=== PATIENT | female | born 1995 | race Caucasian/White ===

== ENCOUNTER 2017-08-22 13:30 | Emergency (ER) | payer OTHER, SELFPAY ==
[2017-08-22 13:30] VITALS: BP 129/69; PULSE 106; RESP 14; TEMP 36.5; O2SAT 100; BMI 19.9
--- NOTE | 2017-08-22 14:22 | ED.DCSUM_ITS ---
- ER Visit Summary Date of Service: 08/22/17 Chief Complaint: Dental pain History of Present Illness: The patient is a 22 F who has an appointment to see Dr. Marrero September 02. She reports that she has had pain in her left maxillary second molar that has been present for years as her wisdom tooth is coming in. However, pain is gotten much worse over the past 2 days. She describes as a sharp pressure. Is 10 out of 10 at worst 910 currently. Is worsened by eating, hot, or cold temperatures. She taken NSAIDs, Tylenol, Orajel without relief. Physical Examination: Vitals: Stable. Afebrile. Mouth: No trismus. No edema of the floor of the mouth. Pain with percussion of left maxillary second molar. There is a crown showing in the base of this. There is no focal abscess. General: A&O x 3. NAD. Cardiovascular exam: Regular rate and rhythm, no murmur, rub or gallop. Respiratory exam: Clear to auscultation bilaterally. No wheezes or stridor. Abdominal exam: Soft, nontender, nondistended, normal bowel sounds. No peritoneal signs. Extremity: No clubbing, cyanosis, or edema. Emergency Department Course and Treatment: Patient had a dental block performed and got significant relief from this. She is given naproxen and amoxicillin p.o. Treatment Plan: She will be discharged instructions follow-up Dr. Marrero as soon as possible. She given a prescription for [place], naproxen, and amoxicillin. Disposition: To home in improved and stable condition. Impression: 1. Dental pain. 2. Dental block. This note was generated with [employer] dictation software. It may contain incorrect words, spelling, and punctuation that were not noted in review of the chart prior to signing ED Disposition - Plan for ED Patient: Disposition: Home or Assisted Living Chief Complaint: Dental Instructions: ED Tooth Pain Prescriptions: Hydrocodone Bitart/Apap 5-325 [[place] 5/325] 1 - 2 tablet PO Q4H PRN PRN 3 Days # 20 tablet PRN Reason: Pain Naproxen [Naprosyn] 500 mg PO BID PRN #20 tablet Amoxicillin 500 mg PO TID #30 tablet Referrals: Carloz Marrero DDS [STAFF PHYSICIAN] - As soon as possible
[2017-08-22] MEDS: Bupivacaine 0.5%/Epi 1.8 ML Syringe INFILT (14:33)
[2017-08-22] MEDS: Naproxen 250 MG Tablet 500 MG PO (14:33)
[2017-08-22] MEDS: AMOXICILLIN 500 MG CAPSULE PO (14:33)
== END 2017-08-22 14:39 | disposition home or self-care (01) ==
PROVIDERS: Emergency Provider Emergency Medicine; Family Provider Internal Medicine; PCP Internal Medicine
DX: K08.89 Other specified disorders of teeth and supporting structures (principal); K52.9 Noninfective gastroenteritis and colitis, unspecified; R51 Headache; K86.1 Other chronic pancreatitis; Z72.0 Tobacco use
CPT/HCPCS: 64450; 99283

== ENCOUNTER 2018-01-29 19:11 | Emergency (ER) | payer OTHER, SELFPAY ==
[2018-01-29 19:11] VITALS: BP 120/87; PULSE 98; RESP 16; TEMP 37.4; O2SAT 98; BMI 19.3
--- NOTE | 2018-01-29 19:36 | ED.VISSUMM ---
- ER Visit Summary Date of Service: 01/29/18 Chief Complaint: Cough, fever History of Present Illness: The patient is a 22 F presenting with cough, fever. She states she has been sick for the past week. She went to urgent care today and was diagnosed with pneumonia. She was given a Z-Jah. She states she has been taking Tylenol at home for her fever. She complains of productive cough, nausea, diarrhea. She complains of generally not feeling well. Denies other complaints. Physical Examination: Vitals are stable. Patient is afebrile. Alert no acute distress. HEENT exam is unremarkable. Pharynx is normal, uvula midline. TMs normal bilaterally Neck is supple. No meningismus Lungs are clear and equal bilaterally. Heart is regular rate and rhythm. Abdomen is soft nontender nondistended. No guarding or rebound Extremities are unremarkable. Skin is warm and dry. No rash No focal neurologic deficit. Remainder of exam is unremarkable. Emergency Department Course and Treatment: Patient is given IV fluids, Zofran, Toradol. CBC shows white count of 12.5. Chemistries show potassium 3.3. Lipase is normal. Urinalysis unremarkable. HCG negative. Chest x-ray shows no acute process. On reevaluation, patient is feeling improved. She likely has a viral syndrome, she was given a prescription for Zofran. Advised to discontinue Zithromax. Advised to follow-up with her primary care physician. Advised return to ED if worsening complaints. Disposition: Discharge home Impression: Viral syndrome This note was generated with [employer] dictation software. It may contain incorrect words, spelling, and punctuation that were not noted in review of the chart prior to signing ED Disposition - Plan for ED Patient: Chief Complaint: Shortness of Breath Referrals: Scarlet Lemus MD [Primary Care Provider] -
--- NOTE | 2018-01-29 19:52 | RAD_ITS ---
STUDY: X-RAY CHEST REASON FOR EXAM: Female, 22 years old. Cough TECHNIQUE: Frontal and lateral views of the chest COMPARISON: 03/15/2016 FINDINGS: The lungs are clear. There are no pleural effusions. There is no pneumothorax. The heart is normal in size. The visualized osseous structures are within normal limits. RAD/Chest PA and Lateral IMPRESSION: No acute thoracic pathology. Electronically Signed: Bob Schmidt, at 20:08 EDT Tel , Service support ,
[2018-01-29] MEDS: Ondansetron 4 MG/2 ML Vial IV (19:53)
[2018-01-29] MEDS: Ketorolac 15 MG/ML Vial IV (19:53)
[2018-01-29] MEDS: 0.9% Normal Saline 1,000 ML 1000 ML IV (19:53)
[2018-01-29 20:19] LABS: ALB/GLOB Ratio 0.9 RATIO (0.9-2.4); AST(SGOT) 19 U/L (15-37); Alanine Aminotransfer ALT/SGPT 26 U/L (13-56); Albumin, Serum 3.7 g/dL (3.2-5.0); Alkaline Phosphatase 103 U/L (45-117); Anion Gap 9 (5-15); BUN 16 mg/dL (7-18); Calcium,Total 8.8 mg/dL (8.5-10.1); Chloride 106 mmol/L (98-107); EST Glomerular Filtration Rate 110 mL/min (>60); Est Glom Filt Rate - Afr Amer 134 mL/min (>60); Estimated Creatinine Clearance 97.56 ml/min; Glucose 94 mg/dL (74-106); Lipase 155 U/L (73-393); Potassium 3.3 mmol/L (3.5-5.1); Protein, Total 7.7 g/dL (6.4-8.2); Sodium Level 142 mmol/L (136-145)
[2018-01-29 20:22] LABS: Pregnancy, Serum, hCG Quali. NEGATIVE Negative (0-9 Nonpreg)
[2018-01-29 20:36] LABS: Bacteria 0 SEEN /hpf (None Seen); Mucous, Urine 0 SEEN /hpf (<or=2+); Red Blood Cells-Urine 0 SEEN /hpf (0-5)
[2018-01-29 20:38] LABS: Color, Urine Straw (Yellow); Glucose, Dipstick Normal (Normal); Ketone-Dipstick Negative (Negative); Leukocyte Esterase-Dipstick 25 /ul (Negative); Nitrite-Dipstick Negative (Negative); Occult Blood-Urine 25 /ul (Negative); Protein-Dipstick 30 mg/dl (Negative); Urine Bilirubin Dipstick Negative (Negative); Urine Clarity Cloudy (Clear); Urine Urobilinogen 4 mg/dl (Normal); Urine pH 6.5 (5.0 - 8.0)
[2018-01-29 20:50] LABS: Squamous Epithelial Cells - UA 0-5 SEEN /hpf (5-10); White Blood Cells 0-5 SEEN /hpf (0-5)
[2018-01-29 20:52] LABS: Amorphous Sediment 2+
[2018-01-29 21:16] LABS: Absolute Lymphocyte Count 2.99 X10^3/ul (0.83-4.51); Absolute Neutrophil Count 8.6 X10^3/uL (2.0-7.7); Basophil# 0.02 X10^3/uL; Basophil% 0.2 % (0-1); Eosinophil# 0.06 X10^3/uL; Eosinophils% 0.5 % (0-5); Hematocrit 38.5 % (37-47); Hemoglobin 12.8 g/dl (12.0-15.0); Lymphocyte # 2.99 X10^3/ul (4.0); Lymphocyte % 23.9 % (19-41); Mean Corp Hgb Conc 33.2 g/gl (32-36); Mean Corpuscular Hgb 28.4 pg (27.0-32.0); Mean Corpuscular Volume 85.6 fL (81-99); Mean Platelet Vol. 10.7 fl (6.2-12.0); Monocyte% 7.2 % (0-10); Neutrophil # 8.55 X10^3/uL (2.7-7.7); Neutrophil % 68.1 % (47-70); Platelet Count 233 K/mm3 (150-450); RBC Distribution Width CV 13.2 % (11.6-14.6); RBC Distribution Width SD 41.6 fl (35.1-43.9); White Blood Count 12.5 K/mm3 (4.4-11.0)
[2018-01-29 21:18] LABS: POSITIVE COUNT NO; POSITIVE DIFFERENTIAL NO; POSITIVE MORPHOLOGY NO
[2018-01-29 21:40] VITALS: BP 106/59; PULSE 77; O2SAT 97
[2018-01-29 21:59] VITALS: BP 106/59; PULSE 77; TEMP 36.1
--- NOTE | 2018-01-29 21:59 | ED.DEP ---
ED Disposition - Plan for ED Patient: Chief Complaint: Shortness of Breath Instructions: ED Viral Syndrome Prescriptions: Ondansetron [Zofran Odt] 4 mg PO Q8H PRN PRN #10 tablet PRN Reason: Nausea Referrals: Scarlet Lemus MD [Primary Care Provider] -
== END 2018-01-29 22:07 | disposition home or self-care (01) ==
PROVIDERS: Emergency Provider Emergency Medicine; Family Provider Internal Medicine; PCP Internal Medicine
DX: B34.9 Viral infection, unspecified (principal); R05 Cough; R50.9 Fever, unspecified; R11.0 Nausea; R19.7 Diarrhea, unspecified; Z72.0 Tobacco use
CPT/HCPCS: 71046; 80048; 80053; 81001; 83690; 84703; 85025; 96374; 96375; 99283; J7030; J2405

== ENCOUNTER 2018-12-11 11:47 | Emergency (ER) | payer BC, MEDICAID, SELFPAY ==
[2018-12-11] VITALS (9 sets, daily range): BP systolic 107–127; BP diastolic 63–80; PULSE 72–90; RESP 14–18; TEMP 37.2–37.4; O2SAT 96–100; BMI 19.9; BMI 20.6
--- NOTE | 2018-12-11 11:55 | CM.ED ---
SOCIAL WORK THIS WORKER TO NURSES STATION. CRISIS HERE AND MADE AWARE OF PATIENT'S CASE AND NEED FOR CRISIS EVALUATION ONCE MEDICALLY CLEARED BY NURSING AND DR. PETE. THIS WORKER TO FOLLOW AND ASSIST NEEDED. MICHELE HULL, FIELD TRAINING MANAGER, INSPECTOR [employer]ITIES.
--- NOTE | 2018-12-11 12:00 | ED.VISSUMM ---
- ER Visit Summary Date of Service: 12/11/18 Chief Complaint: [] Drug overdose suicidal History of Present Illness: The patient is a 23 F [] patient was brought in by EMS after drug overdose she indicates she basically argued with her boyfriend today after that she took unspecified medications cannot be confirmed but by history less than 10 each of ibuprofen a muscle relaxer and allergy type medicine, Mucinex liquid She did not take Tylenol or aspirin, She indicates she occasionally uses cocaine does not use any injection drug abuse, denies , reports a long-standing history of depression and intermittent being suicidal, she indicates she really just wanted to sleep, she denies any other past history, she indicates the pill ingestion all occurred about an hour ago Physical Examination: [] Vital signs within normal range General, no distress resting comfortably HEENT is generally unremarkable, she is very vague and evasive at one point time she suggested she took all those medications just to sleep I explained to her that seems unusually peculiar and at this time given the information we have from EMS her boyfriend and others suicide The neck is supple no adenopathy Cardiovascular, regular rate and rhythm Lungs, clear bilateral Abdomen, soft nontender Extremities, no clubbing cyanosis or edema Neurologic, awake alert answering questions appropriately moving all 4 extremities Test Results: [] Emergency Department Course and Treatment: [] Given all of the above her history of the evasiveness the multiple pills that she took she will be given charcoal screening labs acetaminophen and salicylate levels Screening labs are generally unremarkable her acetaminophen and salicylate levels are negative she does report repeat levels are pending, her urine tox screen came back positive for multiple substances of abuse see those reports, she is remained hemodynamically neurologically stable at this time I have asked the mental health service to see her to determine disposition status as she is medically stable and clear pending the negative repeat acetaminophen and sulfate levels Treatment Plan: [] Disposition: [] Pending mental health evaluation Impression: [] Zelda ideation, drug overdose multiple substance, polysubstance abuse This note was generated with [employer] dictation software. It may contain incorrect words, spelling, and punctuation that were not noted in review of the chart prior to signing ED Disposition - Plan for ED Patient: Referrals: Scarlet Lemus MD [Primary Care Provider] -
[2018-12-11 12:18] LABS: Absolute Lymphocyte Count 2.01 X10^3/ul (0.83-4.51); Absolute Neutrophil Count 7.5 X10^3/uL (2.0-7.7); Basophil# 0.01 X10^3/uL; Basophil% 0.1 % (0-1); Eosinophil# 0.04 X10^3/uL; Eosinophils% 0.4 % (0-5); Hematocrit 43.7 % (37-47); Hemoglobin 14.5 g/dl (12.0-15.0); Lymphocyte # 2.01 X10^3/ul (4.0); Lymphocyte % 19.9 % (19-41); Mean Corp Hgb Conc 33.2 g/gl (32-36); Mean Corpuscular Hgb 28.9 pg (27.0-32.0); Mean Corpuscular Volume 87.2 fL (81-99); Mean Platelet Vol. 10.7 fl (6.2-12.0); Monocyte# 0.51 X10^3/uL; Neutrophil # 7.52 X10^3/uL (2.7-7.7); Neutrophil % 74.4 % (47-70); POSITIVE COUNT NO; POSITIVE DIFFERENTIAL NO; POSITIVE MORPHOLOGY NO; Platelet Count 207 K/mm3 (150-450); RBC Distribution Width CV 13.3 % (11.6-14.6); RBC Distribution Width SD 42.3 fl (35.1-43.9); Red Blood Count 5.01 M/mm3 (4.2-5.4); White Blood Count 10.1 K/mm3 (4.4-11.0)
[2018-12-11 12:26] LABS: Amphetamine Urine VISTA NEGATIVE (<1000 ng/mL); Barbiturate Urine VISTA NEGATIVE (< 200 ng/mL); Benzodiazepine Urine VISTA NEGATIVE (< 200 ng/mL); Cocaine Urine VISTA POSITIVE (< 300 ng/mL); Ecstacy Urine VISTA NEGATIVE (< 500 ng/mL); Methadone Urine VISTA NEGATIVE (< 300 ng/mL); PCP Urine VISTA NEGATIVE (< 25 ng/mL); THC Urine VISTA POSITIVE (< 50 ng/mL); Vista UDS pH Range 5
[2018-12-11 12:31] LABS: Anion Gap 3 (5-15); BUN 13 mg/dL (7-18); BUN/Creat Ratio 19.3 RATIO (10-20); Calcium,Total 9.4 mg/dL (8.5-10.1); Chloride 107 mmol/L (98-107); Creatinine, Serum 0.67 mg/dL (0.55-1.02); EST Glomerular Filtration Rate 114 mL/min (>60); Est Glom Filt Rate - Afr Amer 138 mL/min (>60); Glucose 74 mg/dL (74-106); Potassium 3.3 mmol/L (3.5-5.1); Sodium Level 140 mmol/L (136-145)
[2018-12-11 12:33] LABS: Internal QC Validated? YES +Cl - CLEAR BKGD; Pregnancy, Serum, hCG Quali. NEGATIVE Negative
[2018-12-11] MEDS: Activated Charcoal 50 GM/240 ML BOT PO (12:34)
[2018-12-11] MEDS: Ondansetron 4 MG/2 ML Vial IV (12:42)
[2018-12-11 13:09] LABS: Acetaminophen (Tylenol) Level < 2.0 ug/mL (10.0-30.0); Salicylate 3.2 mg/dL (2.8-20.0)
[2018-12-11 14:57] LABS: Salicylate 2.4 mg/dL (2.8-20.0)
[2018-12-11 15:07] LABS: Acetaminophen (Tylenol) Level < 2.0 ug/mL (10.0-30.0)
--- NOTE | 2018-12-11 15:19 | ED.RN ---
FAMILY REQUESTING TO SPEAK TO DOCTOR. DR. PETE AWARE.
--- NOTE | 2018-12-11 15:23 | ED.RN ---
BRITNEY WITH CRISIS WILL BE HERE SOON TO SEE THIS PT
--- NOTE | 2018-12-11 15:47 | ED.RN ---
BRITNEY WITH CRISIS IS HERE TO EVALUATE THIS PT
--- NOTE | 2018-12-11 16:52 | ED.RN ---
REFERRAL HAS BEEN MADE TO [facility] PER BRITNEY WITH CRISIS
--- NOTE | 2018-12-11 17:50 | CM.ED ---
SOCIAL WORK UPDATED BY NURSING, PATIENT ACCEPTED TO [facility].
--- NOTE | 2018-12-11 18:39 | ED.RN ---
REPORT [facility]. PT SKIN P/W/D, RESP EVEN AND UNLABORED, PT A&O X 3, NO DISTRESS NOTED. ALL PT BELONGINGS GIVEN TO/[facility]. PT OUT OF ED FOR TRANSPORT TO [facility].
== END 2018-12-11 18:40 ==
LOC: ED 12:21
PROVIDERS: Emergency Provider Emergency Medicine; Family Provider Internal Medicine; PCP Internal Medicine
DX: F32.9 Major depressive disorder, single episode, unspecified (principal); R45.851 Suicidal ideations; T39.311A Poisoning by propionic acid derivatives, accidental (unintentional), initial encounter; T48.4X1A Poisoning by expectorants, accidental (unintentional), initial encounter; T48.201A Poisoning by unspecified drugs acting on muscles, accidental (unintentional), initial encounter; Y92.9 Unspecified place or not applicable; F19.10 Other psychoactive substance abuse, uncomplicated; Z79.899 Other long term (current) drug therapy
CPT/HCPCS: 80048; 80307; 80320; 80329; 84703; 85025; 96361; 96374; 99285; J7030; J7040; A4216; G0480; J2405

== ENCOUNTER 2020-02-23 10:25 | Emergency (ER) | payer SELFPAY ==
[2018-12-11 11:49] VITALS: BMI 20.6
[2020-02-23 10:26] VITALS: BP 137/61; PULSE 97; RESP 16; TEMP 36.5; O2SAT 98; BMI 24.0
--- NOTE | 2020-02-23 10:38 | CT_ITS ---
STUDY: CT ABDOMEN AND PELVIS WITHOUT CONTRAST REASON FOR EXAM: Female, 24 years old. INFLAMED CERVIX/INCREASED VAGINAL BLEEDING. Hx of prior appendectomy. Not . RADIATION DOSAGE (If Supplied By Facility): CTDIvol = ( 6.26 ) mGy, DLP = ( 343.98 ) mGycm TECHNIQUE: Transaxial images were obtained from the dome of the diaphragm to the symphysis pubis without oral contrast, and without intravenous contrast. Sagittal and coronal images were reconstructed. Individualized dose optimization techniques were used for this CT. COMPARISON: None. FINDINGS: The visualized lung bases are unremarkable. The visualized portions of the heart are within normal limits. Normal liver. Normal gallbladder and extrahepatic biliary system. Normal spleen. Normal pancreas. Normal bilateral adrenal glands. Normal right kidney. Normal left kidney. There is a small hiatal hernia. Normal small intestine. Normal colon. There are surgical clips in the region of the appendix consistent with a prior appendectomy. Normal abdominal aorta. Normal inferior vena cava. Normal retroperitoneum. Normal urinary bladder. Soft tissue prominence in the region of the distal vaginal canal with a tiny calcification. This extends into the posterior aspects of the labia bilaterally. A mass lesion should be ruled out. Phleboliths are seen within the pelvis. Small benign-appearing bilateral axillary lymph nodes. Normal abdominal wall. Normal osseous structures. CT/Abdomen/Pelvis without Cont IMPRESSION: Possible soft tissue mass in the distal portion of the vagina with focal calcific density in the lower aspect. This extends into the inferior aspects of the labia bilaterally. Electronically Signed: Jeremiah Posadas, at 12:27 EDT , Service support ,
--- NOTE | 2020-02-23 10:45 | ED.DCSUM_ITS ---
- ER Visit Summary Date of Service: 02/23/20 Chief Complaint: [Abdominal pain] History of Present Illness: The patient is a 24 F [presents to the emergency department complaint of abdominal pain that started this morning and was severe while at the HV[employer] SHEET [employer] INST[employer] HELPER's office. Patient was seeing Dr. Autumn Sexton for IUD placement however on speculum insertion apparently she developed severe pain and was referred to the emergency department. The IUD apparently had not been attempted at that time. Patient states that she has been having abdominal cramping for quite some time. She has been following up with [employer] and she tells me that she has been tested for STDs within the last month x2 and have been negative. Patient was told that her cervix was inflamed and bleeds easily. Patient denies any fever or recent illness. She denies any illicit drug use. Patient has had some intermittent abnormal vaginal discharge. Patient states that she has been having vaginal bleeding for the last 8 days and the last time she bled was 2 weeks ago at which time she had blood for 7 days. Patient was having an IUD placed today to help with these issues. She does not believe that she is . 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 Patient also with history of ovarian cysts.] Patient has had prior appendectomy. Physical Examination: [HEENT-PERRLA, EOMI. Cranial nerves II through XII grossly intact. TMs clear. Mucous membranes moist. No adenopathy. Cardiovascular-regular rate and rhythm without murmur or ectopy Lungs-clear to auscultation, chest wall stable without crepitus or subcu emphysema Abdomen-normoactive bowel sounds, soft. Patient has tenderness to palpation over the suprapubic region that reproduces her pain. There is no rebound, rigidity, or peritoneal signs. Patient does have guarding on exam. Extremities-intact ?4, normal range of motion, normal pulses, atraumatic] Test Results: [CBC with differential obtained showed a slightly elevated white count of 13.9, hemoglobin 14, hematocrit 42, platelets 280. Chemistries unremarkable. CT scan of the abdomen pelvis without contrast obtained showed possible soft tissue mass in the distal portion of the vagina with focal calcific density in the lower aspect this extends into the inferior aspect of the labia bilaterally. Patient also had a pelvic ultrasound for continued intractable pain which showed normal vascularity to both ovaries and essentially was a normal study.] Emergency Department Course and Treatment: [Case was discussed with Dr. Autumn Sexton who saw the patient this morning and attempted to place IUD. Patient had a speculum exam and tenaculum was used to stabilize the cervix and patient started to complain of pain at that time. No other abnormality was noted on the exam at that time. Because of the findings on CT scan patient will need further evaluation to rule out vaginal mass. I will discuss case with Dr. Sexton again. Patient required multiple doses of narcotic pain medication and also a milligram of Ativan to control her pain. She feels that she can go home and does not want to be admitted at this time for pain control. She understands she will need further follow-up to evaluate this possible mass in her vaginal canal.] Treatment Plan: [Patient was referred by Dr. Sexton to the pelvic pain clinic and also was recommended she follow-up with her primary care physician. Dr. Sexton also is happy to follow her up in the office once again regarding the abnormal CT scan findings which at this point it is unclear if they are significant.] Disposition: [Discharged home in stable condition] Impression: [Pelvic pain-etiology uncertain] This note was generated with [employer] software. It may contain incorrect words, spelling, and punctuation that were not noted in review of the chart prior to signing ED Disposition - Plan for ED Patient: Referrals: Scarlet Lemus MD [Primary Care Provider] -
[2020-02-23] MEDS: Morphine 4 MG/ML Syringe IV (10:50)
[2020-02-23] MEDS: Ondansetron 4 MG/2 ML Vial IV (10:50)
[2020-02-23] MEDS: Ketorolac 30 MG/ML Syringe IV (10:50)
[2020-02-23] MEDS: 0.9% Normal Saline 1,000 ML 125 ML IV (11:00)
[2020-02-23 11:11] LABS: Absolute Lymphocyte Count 2.42 X10^3/uL (0.83-4.51); Absolute Neutrophil Count 10.4 X10^3/uL (2.0-7.7); Basophil# 0.03 X10^3/uL; Basophil% 0.2 % (0-1); Eosinophil# 0.07 X10^3/uL; Eosinophils% 0.5 % (0-5); Hematocrit 42.4 % (37-47); Hemoglobin 14.3 g/dL (12.0-15.0); Lymphocyte # 2.42 X10^3/ul (4.0); Lymphocyte % 17.4 % (19-41); Mean Corp Hgb Conc 33.7 g/dL (32-36); Mean Corpuscular Hgb 30.9 pg (27.0-32.0); Mean Corpuscular Volume 91.6 fL (81-99); Mean Platelet Vol. 10.8 fl (6.2-12.0); Monocyte# 0.92 X10^3/uL; Monocyte% 6.6 % (0-10); NRBC Flagged by Analyzer 0 % (0-5); Neutrophil # 10.44 X10^3/uL (2.7-7.7); Neutrophil % 74.9 % (47-70); Platelet Count 280 K/mm3 (150-450); RBC Distribution Width CV 12.8 % (11.6-14.6); RBC Distribution Width SD 42.2 fl (35.1-43.9); Red Blood Count 4.63 M/mm3 (4.2-5.4); White Blood Count 13.9 K/mm3 (4.4-11.0)
[2020-02-23] MEDS: HYDROmorphone 1 MG/ML Syringe IV ×3 (11:20→13:46)
[2020-02-23 11:23] LABS: Anion Gap 5 (5-15); BUN 12 mg/dL (7-18); BUN/Creat Ratio 15.2 RATIO (10-20); Calcium,Total 9.2 mg/dL (8.5-10.1); Chloride 109 mmol/L (98-107); Creatinine, Serum 0.79 mg/dL (0.55-1.02); EST Glomerular Filtration Rate 94 mL/min (>60); Est Glom Filt Rate - Afr Amer 114 mL/min (>60); Glucose 96 mg/dL (74-106); Sodium Level 141 mmol/L (136-145)
[2020-02-23 11:55] LABS: Internal QC Validated? YES +Cl - CLEAR BKGD; Pregnancy, Serum, hCG Quali. NEGATIVE Negative
--- NOTE | 2020-02-23 11:56 | ED.RN ---
pt has minimal pain relief after first dose of morphine, toradol, zofran. Given dilaudid with and warm blankets with minimal relief. Physician aware. Mother and patient aware physician wants to wait for test results before ordering additional meds.
[2020-02-23 12:39] VITALS: BP 109/78; PULSE 82; RESP 18; O2SAT 98
--- NOTE | 2020-02-23 12:43 | US_ITS ---
STUDY: ULTRASOUND OF THE FEMALE PELVIS - LIMITED REASON FOR EXAM: Female, 24 years old PELVIC PAIN - ABNL UT BLEEDING , LMP UNKNOWN CMT - TVAG REFUSED TECHNIQUE: Transabdominal. The patient refused transvaginal examination. TECHNICAL QUALITY: Limited. COMPARISON: None. FINDINGS: The uterus is anteverted and is in a midline position. The uterus measures 8.4 x 5.2 x 3.2 cm. Normal uterine cervix. The endometrium measures 4.3 mm in thickness, and is hyperechoic. There is no demonstrated endometrial mass. There is no demonstrated myometrial mass. The right ovary was not visualized. The left ovary was not visualized. There is no fluid in the cul-de-sac. US/Pelvic (Non ) IMPRESSION: Limited examination. The uterus is unremarkable. The ovaries were not visualized. Electronically Signed: Jeremiah Posadas, at 13:41 EDT , Service support ,
[2020-02-23] MEDS: 0.9% Normal Saline 1,000 ML 999 ML IV ×2 (12:50→15:31)
--- NOTE | 2020-02-23 13:26 | US_ITS ---
STUDY: ULTRASOUND OF THE FEMALE PELVIS - COMPLETE REASON FOR EXAM: Female, 24 years old. PAIN MIDLINE AND RIGHT PELVIC PAIN PERIOD 02/01/20-02/08/20 AND 02/15/20 LMP: 02/15/2020 TECHNIQUE: Transvaginal TECHNICAL QUALITY: Adequate. COMPARISON: Comparison is made with prior examination done earlier in the day. FINDINGS: The uterus is anteverted and is in a midline position. The uterus measures 8.1 cm x 4.4 cm x 3.4 cm. There is a Nabothian cyst of the cervix. A 1.3 cm x 1 cm x 0.5 cm cyst is seen in the lower uterine segment. The endometrium measures 1.8 mm in thickness, and is hyperechoic. There is no demonstrated endometrial mass. There is no demonstrated myometrial mass. I.U.D. - The patient does not have an I.U.D. The right ovary is visualized. The right ovary measures 3.5 cm x 2.1 cm x 1.9 cm. There is no right ovarian cyst or ovarian mass. There is no visualized right adnexal mass or complex lesion. There is normal arterial and normal venous vascularity. The left ovary is visualized. The left ovary measures 3.4 cm x 1.7 cm x 1.7 cm. There is no left ovarian cyst or ovarian mass. There is no visualized left adnexal mass or complex lesion. There is normal arterial and normal venous vascularity. There is no fluid in the cul-de-sac. US/Transvaginal Non- IMPRESSION: Nabothian cysts. Electronically Signed: Jeremiah Posadas, at 15:40 EDT , Service support ,
[2020-02-23 13:31] LABS: Color, Urine Yellow (Yellow); Glucose, Dipstick Normal (Normal); Ketone-Dipstick 5 mg/dl (Negative); Leukocyte Esterase-Dipstick 25 /ul (Negative); Nitrite-Dipstick Negative (Negative); Occult Blood-Urine 250 /ul (Negative); Protein-Dipstick Negative (Negative); Urine Bilirubin Dipstick Negative (Negative); Urine Clarity Sl. Cloudy (Clear); Urine Urobilinogen Normal (Normal)
[2020-02-23 13:42] LABS: Bacteria 2+ /hpf (None Seen); Mucous, Urine 3+ /hpf (<or=2+); Red Blood Cells-Urine 25-50 SEEN /hpf (0-5); Squamous Epithelial Cells - UA 5-10 SEEN /hpf (5-10); White Blood Cells 0-5 SEEN /hpf (0-5)
[2020-02-23] MEDS: LORazepam 2 MG/ML Syringe 1 MG IV (13:46)
[2020-02-23 15:30] VITALS: BP 115/77; PULSE 74; RESP 16; O2SAT 97
--- NOTE | 2020-02-23 15:57 | ED.DEP ---
ED Disposition - Plan for ED Patient: Instructions: ED Pelvic Pain [facility] Prescriptions: Oxycodone HCl/Acetaminophen [Percocet 5/325] 1 tab PO Q6H PRN PRN 5 Days #20 tab PRN Reason: Pain Score 6-10/10 Prescription Printed Referrals: Scarlet Lemus MD [Primary Care Provider] - 3-5 Days Kimber Sexton MD [STAFF PHYSICIAN] - 3-5 Days Additional Instructions: follow up with pain clinic
== END 2020-02-23 16:13 | disposition short-term general hospital (02) ==
LOC: ED 11:07
PROVIDERS: Emergency Provider Emergency Medicine; PCP Internal Medicine
DX: R10.2 Pelvic and perineal pain (principal); Z72.0 Tobacco use
CPT/HCPCS: 74176; 76830; 76856; 80048; 81001; 84703; 85025; 96361; 96374; 96375; 96376; 99284; J7030; A4216; J2405

== ENCOUNTER 2020-12-06 11:53 | Emergency (ER) | payer MEDICAID, SELFPAY ==
[2020-12-06 11:54] VITALS: BP 131/101; PULSE 116; RESP 18; TEMP 36.1; O2SAT 100; BMI 25.9
--- NOTE | 2020-12-06 11:56 | US_ITS ---
STUDY: FIRST TRIMESTER OBSTETRICAL ULTRASOUND REASON FOR EXAM: Female, 25 years old with bleeding LMP: 08/29/2020 TECHNIQUE: Transabdominal TECHNICAL QUALITY: Adequate. PRIOR ULTRASOUND: None. FINDINGS: There is visualization of a single gestational sac in a normal intrauterine position. . The gestational sac shape is within normal limits. There is a visualized yolk sac. The placenta is non-visualized. Placenta is posterior There is visualization of a live embryo. The crown-rump length (CRL) measures 8.36 cm, indicating an estimated gestational age (EGA) of 14 weeks, 3 days. There is demonstrated cardiac activity with a heart rate of 150 bpm. The estimated gestation age (EGA) by LMP is 14 weeks, 1 days. The estimated date of delivery (IZZY) by LMP is 06/05/2021. The estimated gestation age (EGA) by US is 14 weeks, 3 days. The estimated date of delivery (IZZY) by US is 06/03/2021. The uterus measures 17.1 x 11.0 x 9.2 cm. There is no demonstrated uterine fibroid. The cervix is closed. There is a crescent shaped 4.4 x 5.7 x 3.2 cm subchorionic hemorrhage. Close sonographic follow-up recommended to assure resolution The right ovary measures 2.0 x 2.7 x 3.4 cm. There is no right ovarian cyst. There is no visualized right adnexal mass or complex lesion. Left ovary not visualized There is no fluid in the cul de sac. US/Init OB < 14Wks US IMPRESSION: Single live intrauterine at 14 weeks, 3 days by current ultrasound with IZZY of 06/03/2021. Heart rate of 150 bpm. There is a subchorionic hemorrhage, close sonographic follow-up recommended to assure resolution. Electronically Signed: Med Spears MD at 13:45 EDT , Service support ,
--- NOTE | 2020-12-06 12:10 | ED.VIS.FEGU ---
HPI HPI - Female History of Present Illness Chief Complaint: Vag Bld, Preg Narrative Narrative: The patient presents with vaginal bleeding that started this morning, she is G3, P1 Ab1 a year ago, this is uncomplicated to date she is seen by Dr. [place] head ultrasound 4 weeks ago that showed she was 10 weeks she believes she is farther along than that, she indicates she has some unspecified disorder related to her uterus that has not currently affected her she denies any other past history other complaints she does report she had intercourse this morning that was uncomplicated PFSH PFS Medical History (Updated 12/06/20 @ 14:[address] Alberto Nguyen MD) Pancreatitis Home Medications ondansetron 4 mg PO Q8H PRN PRN 02/23/20 [History Last Taken Unknown] [id number] [] 1 tab PO DAILY 12/06/20 [History Last Taken Unknown] Allergy/AdvReac Type Severity Reaction Status Date / Time fructose Allergy Upset Verified 12/06/20 11:55 Stomach Surgical History (Updated 12/06/20 @ 12:27 by Nelly Carlton) History of appendectomy Social History Smoking Status: Current every day smoker ROS ROS ED ROS Narrative Pelvic pain and vaginal bleeding is the only review of systems Constitutional Constitutional ED: Reports subjective, sweats and other; Denies chills, fever(s) or weight loss Eyes Eyes: Denies blurry vision or change in vision ENT ENT ED: Denies ear pain Cardiovascular Cardiovascular: Denies chest pain or palpitations Respiratory/Chest Respiratory/Chest: Denies dyspnea Gastrointestinal Gastrointestinal: Reports abdominal pain; Denies nausea or vomiting Genitourinary Genitourinary ED: Denies dysuria or hematuria Musculoskeletal Musculoskeletal: Denies arthralgias or myalgias Integumentary Reports rash; Denies abscess Neurologic Neurologic: Denies weakness Psychiatric Psychiatric: Denies anxiety or depression Endocrine Endocrinology: Denies polydipsia or polyuria Allergic/Immunologic Allergic/Immunologic ED: Denies urticaria EXAM Physical Exam Const Vital Signs: 12/06/20 11:54 12/06/20 12:36 12/06/20 14:00 Temperature 97 F L Temperature Source Temporal Pulse Rate 116 H 104 H 86 Respiratory Rate 18 16 18 Blood Pressure 131/101 H 111/77 109/61 Blood Pressure Mean 111 88 77 Pulse Ox 100 99 96 Oxygen Delivery Method Room Air Room Air Room Air Positive well developed General Appearance ED: well developed HEENT Reports normocephalic Negative for trauma Eyes EOMs intact bilaterally Neck supple Chest Wall inspection of chest normal Resp normal respiratory effort Cardio regular rate GI non-tender GI Narrative: She has very mild pain to the lower pelvic area bilaterally, no rebound or guarding the backs unremarkable, she reports that history for pancreatitis unspecified etiology she was feeling fine today before the sudden onset of vaginal bleeding Back/Spine no CVA tenderness Back/Spine Narrative: unremarkable Extremity normal to inspection Neuro oriented x3 and CN's II-XII intact bilaterally Sensorium / Orientation: alert Psych mental status grossly normal Skin no rashes or lesions noted MDM MDM MDM Narrative Medical decision making narrative: Reported feeling fine today before the sudden onset of vaginal bleeding she had no trouble during intercourse, she has had an uncomplicated CUSTOMER SUCCESS DIRECTOR course to date given all the above 80 screen evaluation labs pain management IV fluids ultrasound Patient is O+, hemoglobin is 12.8, the pelvic ultrasound per staff shows single 14 weeks live IUP heart rate 150 patient was treated with morphine and Dilaudid for pelvic cramps persistence of the bleeding pelvic exam is deferred, we spoke with the patient spoke with Dr. Lieberman her INJECTION PRESS OPERATOR on-call who feels she can safely be discharged either go home for pelvic rest conservative management to be seen in the office tomorrow or be seen in the office today discussed with the patient she is comfortable with discharge follow-up in the office today for further management options Home stable Final impression threatened at 14 weeks, vaginal bleeding single live IUP on ultrasound 14 weeks Lab Data Labs: Laboratory Results - last 24 hr 12/06/20 12/06/20 12/06/20 12:21 12:21 12:21 WBC 10.1 RBC 4.26 Hgb 12.8 Hct 38.1 MCV 89.4 MCH 30.0 MCHC 33.6 RDW Std Deviation 39.4 RDW Coeff of Elliott 12.1 Plt Count 201 MPV 11.6 Immature Gran % (Auto) 0.500 Neut % (Auto) 71.4 H Lymph % (Auto) 21.7 Carbon % (Auto) 5.6 Eos % (Auto) 0.6 Baso % (Auto) 0.2 Absolute Neuts (auto) 7.2 Absolute Lymphs (auto) 2.19 Nucleated RBC % 0 HCG, Quant 24540 H Serum , Qual Cancelled Blood Type O POSITIVE Radiography Diagnostic Testing: Radiology Impression Obstetrics Ultrasound 12/06/20 11:56 IMPRESSION: Single live intrauterine at 14 weeks, 3 days by current ultrasound with IZZY of 06/03/2021. Heart rate of 150 bpm. There is a subchorionic hemorrhage, close sonographic follow-up recommended to assure resolution. Electronically Signed: Med Spears MD at 13:45 EDT , Service support , Discharge Plan Triage Chief Complaint: Vag Bld, Preg ED Provider: Alberto Nguyen Dx/Rx/DC Orders Clinical Impression: , threatened Instructions: ED Possible Miscarriage ... Prescriptions: No Action ondansetron 4 MG tablet 4 mg PO Q8H PRN PRN (Reason: Nausea) RF: 0 1 mg Tablet 1 tab PO DAILY RF: 0 Primary Care Provider: Scarlet Lemus Referrals: Scarlet Lemus MD [Primary Care Provider] - Activity Restrictions/Additional Instructions: Go directly to Dr. Lieberman's INJECTION PRESS OPERATOR office to be evaluated
[2020-12-06] MEDS: Ondansetron 4 MG/2 ML Vial IV (12:32)
[2020-12-06] MEDS: morphine 8 MG/ML Syringe IV (12:33)
[2020-12-06] MEDS: 0.9% Normal Saline 1,000 ML 1000 ML IV (12:33)
[2020-12-06 12:36] VITALS: BP 111/77; PULSE 104; RESP 16; O2SAT 99
[2020-12-06 12:43] LABS: Absolute Lymphocyte Count 2.19 X10^3/uL (0.83-4.51); Absolute Neutrophil Count 7.2 X10^3/uL (2.0-7.7); Basophil# 0.02 X10^3/uL; Basophil% 0.2 % (0-1); Eosinophil# 0.06 X10^3/uL; Eosinophils% 0.6 % (0-5); Hematocrit 38.1 % (37-47); Hemoglobin 12.8 g/dL (12.0-15.0); Lymphocyte # 2.19 X10^3/ul (0.83-4.51); Lymphocyte % 21.7 % (19-41); Mean Corp Hgb Conc 33.6 g/dL (32-36); Mean Corpuscular Volume 89.4 fL (81-99); Mean Platelet Vol. 11.6 fl (6.2-12.0); Monocyte# 0.56 X10^3/uL; Monocyte% 5.6 % (0-10); NRBC Flagged by Analyzer 0 % (0-5); Neutrophil # 7.19 X10^3/uL (2.7-7.7); Neutrophil % 71.4 % (47-70); Platelet Count 201 K/mm3 (150-450); RBC Distribution Width CV 12.1 % (11.6-14.6); RBC Distribution Width SD 39.4 fl (35.1-43.9); Red Blood Count 4.26 M/mm3 (4.2-5.4); White Blood Count 10.1 K/mm3 (4.4-11.0)
[2020-12-06 14:00] VITALS: BP 109/61; PULSE 86; RESP 18; O2SAT 96
[2020-12-06] MEDS: HYDROmorphone 1 MG/ML Syringe IV (14:01)
[2020-12-06 14:07] LABS: hCG Titer Quant., Serum 39661 mIU/mL (1-3)
[2020-12-06 14:48] VITALS: BP 112/82; PULSE 91; RESP 18; O2SAT 98
== END 2020-12-06 14:48 | disposition home or self-care (01) ==
LOC: ED 13:59
PROVIDERS: Emergency Provider Emergency Medicine; PCP Internal Medicine
DX: O20.0 Threatened abortion (principal); O99.331 Smoking (tobacco) complicating pregnancy, first trimester; F17.200 Nicotine dependence, unspecified, uncomplicated; Z3A.14 14 weeks gestation of pregnancy
CPT/HCPCS: 76801; 84702; 85025; 86900; 86901; 96361; 96374; 96375; 99284; J7030; A4216; J2405

== ENCOUNTER 2021-05-24 19:25 | Outpatient (CLI) | payer MEDICAID, SELFPAY ==
[2021-05-24 19:29] VITALS: BP 126/83; PULSE 114; TEMP 36.8; O2SAT 98
[2021-05-24 19:51] VITALS: BMI 27.6
--- NOTE | 2021-05-25 10:37 | OB.TRI.NOTE ---
HPI - General HPI Narrative YVONNE PATEL, is a 26 F @ 38.2 weeks who presents- r/o labor - denies VB, LOF. PFSH PFSH Medical History (Updated 05/25/21 @ 06:[address] Salud Clarke MD) Anxiety Depression Family history of malignant hyperthermia Hiatal hernia Pancreatitis hemorrhage Tonsillectomy planned Home Medications [id number] [] 1 tab PO DAILY 12/06/20 [History Last Taken Unknown] Allergy/AdvReac Type Severity Reaction Status Date / Time acetaminophen [From Percocet] Allergy Anaphylaxis Verified 05/25/21 06:27 fructose Allergy Upset Verified 05/25/21 06:27 Stomach oxycodone [From Percocet] Allergy Anaphylaxis Verified 05/25/21 06:27 Family History (Updated 05/24/21 @ 20:39 by Letty Bush) Grandmother Malignant hyperthermia Surgical History (Updated 05/24/21 @ 20:14 by Letty Bush) History of adenoidectomy History of appendectomy Social History Smoking Status: Light Smoker (<10/day) History Elective abortions Hx Para 1 Spontaneous abortions Hx # Term Pregnancies Ectopic pregnancies Hx # Pregnancies Multiple births # of living children Physical Exam Narrative VE: /-3 posterior - monitored and reexmained- no cervical change. NST FHR Rate Baby A Baseline: 140 Variability:: Moderate Accelerations:: 15 x 15 Decelerations:: None NST Reactive:: Yes FHR Category:: Category I Uterine Activity:: irregular Assessment & Plan (1) 38 weeks gestation of : PLAN: @ 38.2 weeks- early labor, well being established No cervical change at this time NST reactive labor reviewed Dc home
== END 2021-05-24 23:00 | disposition home or self-care (01) ==
LOC: WPOUT 19:34 → WP 19:35
PROVIDERS: PCP Internal Medicine; Referring Provider Obstetrics & Gynecology; Visit Provider Obstetrics & Gynecology
DX: O60.03 Preterm labor without delivery, third trimester (principal); O99.333 Smoking (tobacco) complicating pregnancy, third trimester; F17.200 Nicotine dependence, unspecified, uncomplicated; Z3A.38 38 weeks gestation of pregnancy
CPT/HCPCS: 59025; 59050; 99218; G0378

== ENCOUNTER 2021-05-25 05:27 | Inpatient (IN) | payer SELFPAY ==
[2021-05-25] VITALS (84 sets, daily range): BP systolic 92–122; BP diastolic 53–80; PULSE 78–126; RESP 18; TEMP 36–37.1; O2SAT 88–99; BMI 27.6
[2021-05-25] MEDS: Lactated Ringers 500 ML 999 ML IV (05:37)
[2021-05-25 05:52] LABS: Absolute Lymphocyte Count 3.41 X10^3/uL (0.83-4.51); Absolute Neutrophil Count 9.5 X10^3/uL (2.0-7.7); Basophil# 0.04 X10^3/uL; Basophil% 0.3 % (0-1); Eosinophil# 0.15 X10^3/uL; Eosinophils% 1.1 % (0-5); Hematocrit 31.5 % (37-47); Hemoglobin 10.4 g/dL (12.0-15.0); Lymphocyte # 3.41 X10^3/ul (0.83-4.51); Mean Corpuscular Hgb 28.7 pg (27.0-32.0); Mean Platelet Vol. 10.2 fl (6.2-12.0); Monocyte# 0.95 X10^3/uL; Monocyte% 6.7 % (0-10); NRBC Flagged by Analyzer 0 % (0-5); Neutrophil # 9.49 X10^3/uL (2.7-7.7); Neutrophil % 66.7 % (47-70); Platelet Count 270 K/mm3 (150-450); RBC Distribution Width CV 13.3 % (11.6-14.6); RBC Distribution Width SD 42.1 fl (35.1-43.9); Red Blood Count 3.62 M/mm3 (4.2-5.4); White Blood Count 14.2 K/mm3 (4.4-11.0)
[2021-05-25] MEDS: Lactated Ringers 1,000 ML 200 ML IV ×2 (06:11→11:14)
[2021-05-25 06:18] LABS: Amphetamine Urine VISTA NEGATIVE (<1000 ng/mL); Barbiturate Urine VISTA NEGATIVE (< 200 ng/mL); Benzodiazepine Urine VISTA NEGATIVE (< 200 ng/mL); Cocaine Urine VISTA NEGATIVE (< 300 ng/mL); Ecstacy Urine VISTA NEGATIVE (< 500 ng/mL); Methadone Urine VISTA NEGATIVE (< 300 ng/mL); PCP Urine VISTA NEGATIVE (< 25 ng/mL); THC Urine VISTA NEGATIVE (< 50 ng/mL); Vista UDS pH Range 7
--- NOTE | 2021-05-25 06:45 | PCM.HP.OB ---
HPI - General General Date of Admission: 05/25/21 HPI Narrative YVONNE PATEL, is a 26 F @ 38.3 weeks who presents c/o increased contraction pain. pt denies VB, LOF. Maternal Data Information Final IZZY: 06/05/21 Final IZZY Source: US <20 weeks Gestational age: 38.3 PFSH PFSH Medical History (Updated 05/25/21 @ 06:[address] Salud Clarke MD) Anxiety Depression Family history of malignant hyperthermia Hiatal hernia Pancreatitis hemorrhage Tonsillectomy planned Home Medications [id number] [] 1 tab PO DAILY 12/06/20 [History Last Taken Unknown] Allergy/AdvReac Type Severity Reaction Status Date / Time acetaminophen [From Percocet] Allergy Anaphylaxis Verified 05/25/21 06:27 fructose Allergy Upset Verified 05/25/21 06:27 Stomach oxycodone [From Percocet] Allergy Anaphylaxis Verified 05/25/21 06:27 Family History (Updated 05/24/21 @ 20:39 by Letty Bush) Grandmother Malignant hyperthermia Surgical History (Updated 05/24/21 @ 20:14 by Letty Bush) History of adenoidectomy History of appendectomy Social History Smoking Status: Light Smoker (<10/day) History Elective abortions Hx Para 1 Spontaneous abortions Hx # Term Pregnancies Ectopic pregnancies Hx # Pregnancies Multiple births # of living children NST FHR Rate Baby A Baseline: 145 Variability:: Moderate Accelerations:: 15 x 15 Decelerations:: None NST Reactive:: Yes FHR Category:: Category I Uterine Activity:: irregular Vital Signs Vital Signs Vital Signs: 05/25/21 05:23 05/25/21 05:24 05/25/21 06:15 Temperature 98.2 F 98.1 F Temperature Source Temporal Pulse Rate 100 126 H Blood Pressure 122/74 H 122/74 H BP Systolic 122 122 BP Diastolic 74 74 Pulse Ox 99 98 99 05/25/21 06:20 05/25/21 06:22 05/25/21 06:25 Temperature Temperature Source Pulse Rate 114 H 101 H 111 H Blood Pressure 108/72 BP Systolic 108 BP Diastolic 72 Pulse Ox 99 99 05/25/21 06:26 05/25/21 06:30 05/25/21 06:31 Temperature Temperature Source Pulse Rate 102 H 110 H 116 H Blood Pressure 109/76 111/78 BP Systolic 109 111 BP Diastolic 76 78 Pulse Ox 99 05/25/21 06:35 05/25/21 06:36 05/25/21 06:40 Temperature Temperature Source Pulse Rate 115 H 113 H 110 H Blood Pressure 116/80 BP Systolic 116 BP Diastolic 80 Pulse Ox 98 99 05/25/21 06:42 Temperature Temperature Source Pulse Rate 103 H Blood Pressure 114/75 BP Systolic 114 BP Diastolic 75 Pulse Ox Weight Weight: 73.028 kg Body Mass Index (BMI) 27.6 Physical Exam Narrative pt was previously on L&D 5cm and discharged home- on return made cervical change to 6cm/75/-3 Const alert and oriented x3 General Appearance: cooperative HEENT normocephalic GI GI Narrative: Gravid, non tender to palpation. OB / External & Speculum: external exam normal Extremity normal to inspection Skin no rashes or lesions noted Neuro oriented x3 and CN's II-XII intact bilaterally Psych Appearance: grossly normal Labs Labs Labs: Blood Type O POSITIVE Antibody Screen Pending Hct 31.5 % (37-47) L Hgb 10.4 g/dL (12.0-15.0) L Obstetrics US Assessment & Plan (1) 38 weeks gestation of : (2) Active labor: (3) Depression affecting : (4) Anxiety: (5) Family history of malignant hyperthermia: COMMENT: maternal grandmother (6) Hiatal hernia: PLAN: Admit to L&D [place] FHR/TOCO Epidural if requested for pain Monitor VS Anticipate
[2021-05-25] MEDS: fentaNYL-bupivacaine (epidural) 100 ML BAG EPIDURAL ×2 (06:57→11:31)
--- NOTE | 2021-05-25 08:30 | PCM.PN.OB ---
Subjective Subjective Patient comfortable with epidural Objective Data Objective Data Vital Signs: Vital Signs Temp Pulse BP Pulse Ox 97.5 F L 93 112/71 99 05/25/21 07:21 05/25/21 08:28 05/25/21 08:28 05/25/21 07:30 Weight: 161 lb Body Mass Index (BMI) 27.6 Intake & Output: Intake and Output for Last 24 Hours 05/23/21 05/24/21 05/25/21 23:59 23:59 23:59 Intake Total 500 / 500 Balance 500 / 500 Lab / Micro Data Result Diagrams: 05/25/21 05:35 Labs: Laboratory Results - last 24 hr 05/25/21 05:35: WBC 14.2 H, RBC 3.62 L, Hgb 10.4 L, Hct 31.5 L, MCV 87.0, MCH 28.7, MCHC 33.0, RDW Std Deviation 42.1, RDW Coeff of Elliott 13.3, Plt Count 270, MPV 10.2, Immature Gran % (Auto) 1.200 H, Neut % (Auto) 66.7, Lymph % (Auto) 24.0, [place] % (Auto) 6.7, Eos % (Auto) 1.1, Baso % (Auto) 0.3, Absolute Neuts (auto) 9.5 H, Absolute Lymphs (auto) 3.41, Nucleated RBC % 0 05/25/21 05:35: Blood Type O POSITIVE, Antibody Screen NEGATIVE 05/25/21 05:53: Urine Opiates Screen NEGATIVE, Urine Methadone Screen NEGATIVE, Ur Barbiturates Screen NEGATIVE, Ur Phencyclidine Scrn NEGATIVE, Ur Amphetamines Screen NEGATIVE, U Methamphetamin-MDMA NEGATIVE, U Benzodiazepines Scrn NEGATIVE, Urine Cocaine Screen NEGATIVE, U Cannabinoids Screen NEGATIVE, Ur Drug Screen Comment Micro: Microbiology 05/25/21 05:35 Nasal Secretion SARS-CoV-2 Antigen (Rapid) - Final Physical Exam Const alert and oriented x3 Narrative: cvx - /-2 NST FHR Rate Baby A Baseline: 135 Variability:: Moderate Accelerations:: 15 x 15 Decelerations:: None Uterine Activity:: Irregular Assessment & Plan (1) Active labor: PLAN: AROM clear fluid Continue expectant management but will augment with pitocin if needed
[2021-05-25] MEDS: Oxytocin 30 units/NS 500 ml 30 UNITS/500 ML IV.SOLN IV (13:23)
[2021-05-25] MEDS: Acetaminophen 500 MG Tablet PO (13:27)
[2021-05-25] MEDS: Oxytocin 30 units/NS 500 ml 30 UNITS/500 ML IV.SOLN 334 UNITS IV (15:50)
--- NOTE | 2021-05-25 15:54 | EX.PCM.OBRPT ---
Maternal Data Information Final IZZY: 06/05/21 Gestational age: 38&3 Vaginal Delivery Maternal Presentation Maternal Presentation: Active Labor Operative Information Date of Procedure: 05/25/21 Pre-Operative Diagnosis: Labor Post-Operative Diagnosis: Labor Surgery / Procedure Performed: Spontaneous Vaginal Delivery Type of Anesthesia: Epidural Estimated Blood Loss: 300ml Findings Description of Procedure: Patient prepped & draped when C/C/+2. She pushed well to deliver the head. head gently guided to allow delivery of anterior and posterior shoulders. No excess traction placed on head. Body delivered and 3VC clamped & cut in delayed fashion. Placenta delivered with gentle traction and good uterine tone obtained. Presentation: ASHLEE Amniotic Membrane Rupture Type: Artificial Amniotic Fluid Description: Clear Placental Delivery Description: Expressed Placenta Disposition: [facility] Specimen(s) Removed: Placenta Cord Vessel Description: 3 Vessels Cord Entanglement: None Infant A Gender: Male (Kamara) (1 minute): 8 (5 minute): 9 Delayed Cord Clamping: Yes Post Vaginal Delivery Medications Given After Delivery: IV Pitocin Episiotomy Description: None Laceration: None Complication Complications: None
[2021-05-25] MEDS: Ibuprofen 600 MG Tablet PO (20:24)
[2021-05-26] VITALS (12 sets, daily range): BP systolic 95–116; BP diastolic 55–76; PULSE 75–84; RESP 16–18; TEMP 36.2–36.7; O2SAT 99
[2021-05-26] MEDS: Ibuprofen 600 MG Tablet PO ×2 (02:56→11:16)
--- NOTE | 2021-05-26 16:00 | CASEMGMT ---
Social Work Assessment Labor and Delivery Unit Patient Address[place] [address] Phone number: [phone] Date of Referral: 05.25.2021; 05.26.2021 Time of Referral: 1849; 521 Referred By: Dr. Nagy; Dr. Sexton Date of Intervention: 05.26.2021 Time of Intervention: 1600 Reason for Referral: maternal mental health issues, history of THC in . History obtained from: Medical records and mother of baby (MOB) Florence Hart. Household composition: MOB reports she and the MOB's older daughter live with the father of baby (FOB) Renzo Barton, and FOB's mother. Home situation is reported as safe and adequate. Patient's parent/guardian status: FABIO is a 26 year old single female, involved with the FOB who is age 27 for the last 2 years. MOB denies any form of abuse or safety issues in this relationship. [place] is the first child for FOB and the 2nd for MOB. FABIO's minor children include: Sandy, born 02.02.2013; baby boy Asad Barton, born 05.25.2021. Medical History: FABIO is G3, P1 to 2 after delivering Asad. care started in first trimester and regular thereafter. Asad delivered at 38 weeks gestation. Agpars 8 and 9 at 1 and 5 minutes of life respectively. weight 7 pounds 12 ounces. Educational Status: MOB graduated high school. Denies any issues with reading, writing, or learning comprehension. Financial Status: FABIO is not currently employed. FOB works in [employer]. No reported concerns with finances at this time. Infant Supplies: MOB reports to have necessary supplies including safe sleep space, car seat, clothing, diapers, wipes. Childcare/Caregiver(s): MOB and then help from FOB. Transportation: Denies any issues with transportation. Programs/Agencies Involved: Active with JFS or medicaid. Has WIC. Grief counselor at [facility]. No other agency involvement. Declined [facility] referral. Children Services/Legal Issues: Denies children services involvement. Reports probation for driving without a license. Behavioral Health Issues: Mental Health History: MOB reports history of depression and anxiety, with history of suicide attempt and inpatient hospitalization in 2019. MOB was reportedly using substances at the time. Denies any thoughts, plans, intent, or attempts since 2019. Current grief issues. No reported history of depression. History of treatment with Lexapro and Vistaril per the medical record. Substance Use History: MOB reports history of marijuana use, with cessation reportedly after finding out about . History of cocaine use in 2019, and denies there was any dependency or addiction issues present. Denies any other illicit drug use in , or history of use. Family History: History of depression and anxiety in family. FABIO's sister Nelly in January from a drug overdose. Drug Screens: Maternal drug screen positive 10.17.2020 in first trimester, and then negative at delivery on 05.25.2021. Infant's urine is negative and meconium is pending. Family/Social Stressors: FABIO's sister by overdose in January 2021. Authorities are involved and looking at whether charges an be filed against the person who supplied the drugs. MOB now dealing with grief issues as well. Support Systems: MOB reports her mom, sister, FOB, and FOB's mom are all supports. Reports to have both emotional and practical support. Depression/Shaken Baby/Safe Sleeping: Reviewed safe sleeping and shaken baby. Educated to mood and anxiety disorder, risk factors, and importance of seeking out help and support should symptoms arise. ASSESSMENT: Met with MOB. FABIO's mom and the FOB in room when this freelance writer arrived. MOB asked the family to leave. MOB cooperative, pleasant, good eye contact, appropriate affect to content discussed. Non-defensive in conversation. Reports to feel a connection with the baby. Denies any concerns with home going. Report to feel mood and anxiety are stable, and agree to reach out for support should symptoms arise or becoming distressing. Denies any thoughts of suicide. MOB plans to remain in grief counseling, which MOB is attending with her own mother. Emotional support offered to MOB. MOB denies any continued marijuana use after knowledge of . Denny intent to restart use. Educated to possible follow up by children services due to substance exposure in utero. Safe Plan of Care for infant related to substance use: Abstain from future substance use. Educated that breast feeding and THC use is not recommended. No uses around minors or caring for minor if future use does occur. PLAN: MOB and infant to discharge home when ready. Community resource information provided to the MOB, including information and support information regarding mood and anxiety disorders. MOB connected with grief counseling, WIC and JFS. Monitor for meconium drug screen results. No other services requested or indicated. -CAROLYN Cleaning, RAMYA *This note was generated with [employer] dictation software. It may contain incorrect words, spelling, and punctuation that were not noted in review of the chart prior to signing*
--- NOTE | 2021-06-13 11:15 | CASEMGMT ---
Social Work Labor and Delivery Meconium drug screen results are back for baby and positive for multiple substances. Refer to baby's chart, which is linked to this delivery record, for further details. Called [facility] ([facility]) and spoke with Tiera Hart in the intake department ([phone], extension [phone]). Referral given for substance exposed . Brief maternal and histories provided. Referral will be screened in for investigation. [facility] know that the mother of baby denied any active drug use upon knowledge of . No other services requested or indicated. -FREDA Cleaning, PENCILS WASHER
== END 2021-05-26 18:48 | disposition home or self-care (01) | DRG 807 ==
LOC: WPOUT 05:27 → WP 05:27
PROVIDERS: Obstetrics & Gynecology; Admitting Provider Obstetrics & Gynecology; PCP Internal Medicine; Referring Provider Obstetrics & Gynecology; Visit Provider Obstetrics & Gynecology
DX: O99.62 Diseases of the digestive system complicating childbirth (principal); Z37.0 Single live birth; K44.9 Diaphragmatic hernia without obstruction or gangrene; O99.334 Smoking (tobacco) complicating childbirth; F17.210 Nicotine dependence, cigarettes, uncomplicated; Z3A.38 38 weeks gestation of pregnancy; Z87.59 Personal history of other complications of pregnancy, childbirth and the puerperium; Z84.89 Family history of other specified conditions; O60.03 Preterm labor without delivery, third trimester
CPT/HCPCS: 59025; 59050; 80307; 85025; 86850; 86900; 86901; 87426; 99218; J7120; G0378

== ENCOUNTER 2021-10-11 01:13 | Emergency (ER) | payer MEDICAID, SELFPAY ==
[2021-10-11 01:13] VITALS: BP 120/85; PULSE 88; RESP 17; TEMP 36.1; O2SAT 98; BMI 26.4
--- NOTE | 2021-10-11 01:31 | EX.ED.VIS.UR ---
HPI HPI - URI History of Present Illness Chief Complaint: Ear Problem Informant: patient Narrative Narrative: Patient presents with right-sided earache. She had had some nasal congestion and nonproductive cough for a few days. She had had some fevers a few days ago. She states those symptoms are really gotten better. But now it started that her right ear is hurting quite a bit. Hearing is decreased. No facial pain. She does not have a diffuse headache. Left ear does not bother her. Nothing makes symptoms better or worse. No meds have been tried. ROS ROS ED Constitutional Constitutional ED: Reports fever(s) and subjective Eyes Eyes: Denies blurry vision, change in vision or diplopia ENT ENT ED: Reports ear pain and rhinorrhea; Denies sore throat Cardiovascular Cardiovascular: Denies chest pain Respiratory/Chest Respiratory/Chest: Reports cough; Denies dyspnea or sputum Gastrointestinal Gastrointestinal: Denies nausea or vomiting Musculoskeletal Musculoskeletal: Denies myalgias Integumentary Denies rash Neurologic Neurologic: Denies headache(s) Psychiatric Psychiatric: Reports anxiety Endocrine Endocrinology: Denies polydipsia or polyuria Allergic/Immunologic Allergic/Immunologic ED: Denies urticaria PFSH PFSH Medical History Anxiety Depression Family history of malignant hyperthermia Hiatal hernia Pancreatitis hemorrhage Tonsillectomy planned Home Medications amoxicillin 500 mg PO TID #30 tab 10/11/21 [Rx Last Taken Unknown] naproxen 500 mg PO BID #14 tab 10/11/21 [Rx Last Taken Unknown] Allergy/AdvReac Type Severity Reaction Status Date / Time acetaminophen [From Percocet] Allergy Anaphylaxis Verified 10/11/21 01:15 fructose Allergy Upset Verified 10/11/21 01:15 Stomach oxycodone [From Percocet] Allergy Anaphylaxis Verified 10/11/21 01:15 Family History Grandmother Malignant hyperthermia Surgical History History of adenoidectomy History of appendectomy Social History Smoking Status: Never smoker EXAM Physical Exam Const Vital Signs: 10/11/21 01:13 Temperature 97.0 F L Temperature Source Temporal Pulse Rate 88 Respiratory Rate 17 Blood Pressure 120/85 H Blood Pressure Mean 96 Pulse Ox 98 Oxygen Delivery Method Room Air Positive well nourished and well developed General Appearance ED: well developed and NAD HEENT HEENT Narrative: No rash or swelling. No sinus tenderness. Nasal passages are clear. No tenderness to the tragus. The right tympanic membrane is quite red and swollen. Left looks normal other than mild amount of clear fluid. normocephalic and atraumatic Tympanic Membrane ED: Yes TM normal on the left Eyes PERRL and EOMs intact bilaterally Neck no meningeal signs Resp normal respiratory effort Cardio Rate: regular rate GI Palpation: soft Neuro Sensorium / Orientation: alert Skin Rashes: no rashes MDM MDM MDM Narrative Medical decision making narrative: Patient's had 3 or 4 days of symptoms. It is really settled on the right ear. The area is red swollen and fluid-filled. We will initiate treatment. We discussed reasons to return. Discharge Plan Triage Chief Complaint: Ear Problem ED Provider: Denilson Crowell Dx/Rx/DC Orders Clinical Impression: Acute otitis media, right Instructions: ED Otitis Media Antibiotic ... Prescriptions: New amoxicillin 500 MG tablet 500 mg PO TID Qty: 30 RF: 0 naproxen 500 MG tablet 500 mg PO BID Qty: 14 RF: 0 Primary Care Provider: Scarlet Lemus Referrals: Scarlet Lemus MD [Primary Care Provider] - 3-5 Days if not improving Disposition Disposition: Home, Self Care
[2021-10-11] MEDS: AMOXICILLIN 500 MG CAPSULE PO (02:11)
[2021-10-11] MEDS: Naproxen 500 MG Tablet PO (02:11)
== END 2021-10-11 02:19 | disposition home or self-care (01) ==
LOC: ED 01:41
PROVIDERS: Emergency Provider Emergency Medicine; PCP Internal Medicine; Visit Provider Emergency Medicine
DX: H66.91 Otitis media, unspecified, right ear (principal)
CPT/HCPCS: 99283

== ENCOUNTER 2022-04-13 11:13 | Day surgery (SDC) | payer MEDICAID, SELFPAY ==
[2022-04-13] VITALS (10 sets, daily range): BP systolic 97–110; BP diastolic 58–76; PULSE 53–84; RESP 16–18; TEMP 36.4–36.8; O2SAT 96–100; BMI 25.7
--- NOTE | 2022-04-13 11:38 | US_ITS ---
INDICATION: Acute right adnexal pain, abnormal vaginal bleedin -- Differential torsion, ectopic, 7 weeks by dates EXAMINATION: Ultrasound US OB Transvaginal TECHNIQUE: Transabdominal pelvic ultrasound was performed. Grayscale, spectral waveform, and color flow Doppler evaluation of the adnexa. COMPARISON: None. LMP: [Unknown Beta-hCG: Unknown FINDINGS: INTRAUTERINE GESTATIONAL SAC(s) (size/shape): Single. Size (Mean sac diameter) and shape. Sac diameter measuring 1.75 mm consistent with gestational age of 6 weeks and 4 days. YOLK SAC: Identified yolk sac measures 3.2 mm. POLE: Identified CRL 0.7 cm correlation with estimated gestational age of 7 weeks and 0 days.. ESTIMATED GESTATION AGE: Estimated gestational age of 6 weeks and 5 days.. HEART MOTION: 115 bpm. PLACENTA: Not visualized due to age. SUBCHORIONIC HEMORRHAGE: A focal area of heterogeneous echogenicity visualized in the proximity of the distal cephalic suggestive of subchorionic hematoma measuring 1.1 x 2.1 x 0.7 cm. AMNIOTIC FLUID: Qualitatively normal. UTERUS: The uterus demonstrates unremarkable echogenicity, unremarkable vascularity. Nabothian cysts visualized within the cervix. RIGHT OVARY: . The right ovary demonstrates unremarkable echogenicity and unremarkable vascularity. A focal complex cystic lesion is visualized along the lateral aspect of the right ovary that demonstrates a thick irregular wall, slight increased vascularity visualized in the wall differential diagnosis would include a ruptured corpus luteum cyst however cannot exclude an ectopic , please note that the would recommend follow-up evaluation. This cyst measures 2.5 x 1.9 x 1.7 cm. The right ovary measures 2.3 x 3.3 x 1.5 cm. LEFT OVARY: . The left ovary demonstrates unremarkable echogenicity, unremarkable vascularity, unremarkable size, shape and configuration with no evidence of masses, the left ovary measures 3.0 x 2.2 x 2.0 cm. FREE FLUID: None. US/Transvaginal w/Preg US IMPRESSION: Single live intrauterine . Estimated gestational age is 6 weeks and 5 days. A cyst is visualized along the right ovary most likely representing a corpus luteum cyst however would recommend clinical correlation and if clinically indicated follow-up evaluation to rule out an ectopic . No evidence of ovarian torsion is seen. Electronically Signed: Juvenal Galindo MD at 14:26 EDT ,
--- NOTE | 2022-04-13 11:44 | EDS_ITS ---
HPI <Dr. Ovidio Ramires MD - Last Filed: 04/14/22 09:54> HPI - Female History of Present Illness Chief Complaint: Vag Bld, Preg Detail of Chief Complaint: Right adnexal pain, vaginal bleeding, 7 weeks gestation by dates Informant: patient Pain Pain: Positive for Pelvic Pain Onset: Yesterday Context: Sudden Onset Timing: Intermittent and Waxes and wanes Quality: Positive for Cramping Location: RLQ Current Severity: Moderate Maximum Severity: Severe Worsened by: Movement Relieved by: - (Nothing) Bleeding Issue: Positive for Vaginal bleeding and Passing clots (Dime size); Negative for Passing tissue Onset: Today (Lots noted this morning) and Yesterday (Pain started yesterday with bleeding) Context: Sudden Onset Timing: Intermittent Current Severity: Mild Maximum pads/hr: 1 Associated Symptoms Associated Symptoms: Positive for Dysuria, Frequency, Urgency and Missed Period; Negative for Hematuria Last known menstrual period: February 24 Test: Positive Sexually: Positive for Active Control: No control P: 2 Ab: 0 Narrative Narrative: Patient is a 27-year-old G3, P2 Ab0 female who is approximately 7 weeks by dates who presents with pain and bleeding that started last evening. She passed dime size clot today. She denies history of STI, endometriosis or ectopic . She does have history of ovarian cysts. The pain waxes and wanes in intensity and described as cramping. She localizes the pain to the right inguinal right lower quadrant. She has used 1 pad since midnight. She does report port dysuria, frequency and urgency. She denies hematuria. She has O+ blood. She last ate half a sausage at 0500. Prior similar symptoms: No Recent Illness/Hospitalization: No PFSH <Dr. Ovidio Ramires MD - Last Filed: 04/14/22 09:54> PFS Medical History Anxiety Depression Family history of malignant hyperthermia Hiatal hernia Pancreatitis hemorrhage Tonsillectomy planned Home Medications cephalexin 500 mg capsule 500 mg PO Q8H 7 days #21 caps 04/13/22 [Rx Last Taken Unknown] hydrocodone-acetaminophen 5-325mg 5mg-325mg 1 - 2 tab PO Q6H PRN pain 4 days #14 tabs 04/13/22 [Rx Last Taken Unknown] progesterone micronized 200 mg capsule (Prometrium) 200 mg vaginal QHS 60 days #30 caps 04/13/22 [Rx Last Taken Unknown] Allergy/AdvReac Type Severity Reaction Status Date / Time acetaminophen [From Percocet] Allergy Anaphylaxis Verified 04/13/22 11:14 fructose Allergy Upset Verified 04/13/22 11:14 Stomach oxycodone [From Percocet] Allergy Anaphylaxis Verified 04/13/22 11:14 Family History Grandmother Malignant hyperthermia Surgical History History of adenoidectomy History of appendectomy Social History (Updated 04/13/22 @ 11:[address] Ovidio Ramires MD) household members: spouse and children Smoking Status: Current every day smoker tobacco type: cigarettes substance use type: does not use ROS <Dr. Ovidio Ramires MD - Last Filed: 04/14/22 09:54> ROS ED Constitutional Constitutional ED: Denies chills, fever(s), subjective or sweats Eyes Eyes: Denies blurry vision, change in vision or diplopia ENT ENT ED: Denies ear pain, rhinorrhea or sore throat Cardiovascular Cardiovascular: Denies chest pain, palpitations or racing heartbeat Respiratory/Chest Respiratory/Chest: Denies cough, dyspnea or dyspnea on exertion Gastrointestinal Gastrointestinal: Reports abdominal pain and nausea; Denies constipation, diarrhea, melena or vomiting Genitourinary Genitourinary ED: Reports dysuria and urinary frequency; Denies hematuria Musculoskeletal Musculoskeletal: Denies arthralgias, myalgias or neck pain Integumentary Denies Abrasions or rash Neurologic Neurologic: Denies headache(s), paresthesias or weakness Psychiatric Psychiatric: Reports anxiety Hematologic/Lymphatic Hematologic/Lymphatic: Denies easy bleeding, easy bruising or lymphadenopathy EXAM <Dr. Ovidio Ramires MD - Last Filed: 04/14/22 09:54> Physical Exam Const Vital Signs: 04/13/22 11:14 04/13/22 13:59 04/13/22 16:01 Temperature 97.5 F L Temperature Source Temporal Pulse Rate 70 58 L 58 L Respiratory Rate 18 18 16 Respiratory Pattern Blood Pressure 110/76 99/67 98/60 Blood Pressure Mean 87 77 72 Blood Pressure Source Blood Pressure Position Blood Pressure Location Baseline BP Pulse Ox 99 98 97 Oxygen Delivery Method Room Air Room Air Room Air 04/13/22 16:52 04/13/22 17:07 04/13/22 18:22 Temperature 98.3 F 98.3 F 98.3 F Temperature Source Oral Oral Temporal Pulse Rate 69 53 L 84 Respiratory Rate 18 16 16 Respiratory Pattern Normal Blood Pressure 105/70 103/63 109/63 Blood Pressure Mean 81 76 78 Blood Pressure Source Monitor Monitor Blood Pressure Position Semi-Fowlers Semi-Fowlers Blood Pressure Location Left Arm Left Arm Baseline BP 105/70 Pulse Ox 96 98 99 Oxygen Delivery Method Room Air Room Air Room Air 04/13/22 18:34 04/13/22 18:45 04/13/22 19:00 Temperature 97.5 F L Temperature Source Temporal Pulse Rate 80 67 67 Respiratory Rate 18 18 18 Respiratory Pattern Blood Pressure 97/65 103/58 L 97/66 Blood Pressure Mean 75 73 76 Blood Pressure Source Monitor Monitor Monitor Blood Pressure Position Semi-Fowlers Semi-Fowlers Semi-Fowlers Blood Pressure Location Left Arm Left Arm Left Arm Baseline BP 105/70 105/70 105/70 Pulse Ox 99 100 98 Oxygen Delivery Method Room Air Room Air Room Air 04/13/22 19:06 04/13/22 19:33 Temperature Temperature Source Pulse Rate 68 Respiratory Rate 18 Respiratory Pattern Normal Blood Pressure 107/68 Blood Pressure Mean 81 Blood Pressure Source Monitor Blood Pressure Position Semi-Fowlers Blood Pressure Location Left Arm Baseline BP 105/70 Pulse Ox 99 Oxygen Delivery Method Room Air Positive well nourished and well developed Constitutional Narrative: Patient appears uncomfortable. She is holding her right lower quadrant. General Appearance ED: well developed; Negative for NAD or pallor HEENT Reports TM's clear and moist mucous membranes HEENT Narrative: Head is a traumatic normocephalic. Nares patent. Tympanic Membrane ED: Yes TM's clear Eyes PERRL and EOMs intact bilaterally General Eye ED: Negative for pale conjunctiva or scleral icterus Neck no lymphadenopathy, supple and no JVD Chest Wall inspection of chest normal and palpation of chest normal Resp normal respiratory effort and clear to auscultation bilaterally Cardio regular rate, regular rhythm, S1 normal heart sound, no murmurs and no JVD GI normal to inspection, nondistended, normoactive bowel sounds, soft to palpation, non-distended and no masses; Negative for non-tender Auscultation: hypoactive bowel sounds Palpation: tender RLQ and guarding RLQ; Negative for rigid, hepatomegaly, splenomegaly or mass Back/Spine no CVA tenderness Cervical Spine: Negative for cervical spine tenderness Thoracic Spine / Upper Back: Negative for thoracic spinal tenderness Lumbar Spine / Lower Back: Negative for lumbar spinal tenderness Extremity normal to inspection and full ROM General Extremety ED: Negative for edema or tenderness General Extremity: Negative for edema Neuro oriented x3, CN's II-XII intact bilaterally and no sensory deficits noted Sensorium / Orientation: alert Motor Exam: strength 5/5 throughout Psych Mood & Affect: anxious Skin no rashes or lesions noted and no wounds General Skin Exam: Negative for jaundice or pallor <Dr. Hardy Wood MD - Last Filed: 04/13/22 16:41> Physical Exam Const Vital Signs: 04/13/22 11:14 04/13/22 13:59 04/13/22 16:01 Temperature 97.5 F L Temperature Source Temporal Pulse Rate 70 58 L 58 L Respiratory Rate 18 18 16 Respiratory Pattern Blood Pressure 110/76 99/67 98/60 Blood Pressure Mean 87 77 72 Blood Pressure Source Blood Pressure Position Blood Pressure Location Baseline BP Pulse Ox 99 98 97 Oxygen Delivery Method Room Air Room Air Room Air 04/13/22 16:52 04/13/22 17:07 04/13/22 18:22 Temperature 98.3 F 98.3 F 98.3 F Temperature Source Oral Oral Temporal Pulse Rate 69 53 L 84 Respiratory Rate 18 16 16 Respiratory Pattern Normal Blood Pressure 105/70 103/63 109/63 Blood Pressure Mean 81 76 78 Blood Pressure Source Monitor Monitor Blood Pressure Position Semi-Fowlers Semi-Fowlers Blood Pressure Location Left Arm Left Arm Baseline BP 105/70 Pulse Ox 96 98 99 Oxygen Delivery Method Room Air Room Air Room Air 04/13/22 18:34 04/13/22 18:45 04/13/22 19:00 Temperature 97.5 F L Temperature Source Temporal Pulse Rate 80 67 67 Respiratory Rate 18 18 18 Respiratory Pattern Blood Pressure 97/65 103/58 L 97/66 Blood Pressure Mean 75 73 76 Blood Pressure Source Monitor Monitor Monitor Blood Pressure Position Semi-Fowlers Semi-Fowlers Semi-Fowlers Blood Pressure Location Left Arm Left Arm Left Arm Baseline BP 105/70 105/70 105/70 Pulse Ox 99 100 98 Oxygen Delivery Method Room Air Room Air Room Air 04/13/22 19:06 04/13/22 19:33 Temperature Temperature Source Pulse Rate 68 Respiratory Rate 18 Respiratory Pattern Normal Blood Pressure 107/68 Blood Pressure Mean 81 Blood Pressure Source Monitor Blood Pressure Position Semi-Fowlers Blood Pressure Location Left Arm Baseline BP 105/70 Pulse Ox 99 Oxygen Delivery Method Room Air [facility] <Dr. Ovidio Ramires MD - Last Filed: 04/14/22 09:54> [facility] Narrative Medical decision making narrative: Frontal diagnosis include torsion, ruptured ovarian cyst, ectopic . Appendicitis not the differential since she is status post appendectomy. There is also concern for STI with tubo-ovarian abscess. Will obtain appropriate blood work, urine was obtained since she reports dysuria. Ultrasound was obtained of the pelvis. Patient was made NPO. Confirmed that her blood type is O+. Ultrasound interpretation by radiologist was reviewed and read. There is no evidence of torsion. Radiologist did raise concern for concomitant ectopic . There is a single live intrauterine [address] Orona who is on-call for Dr. Lieberman was paged because of concern for something more significant that may not have been noted on the ultrasound. Dr. Escalona was made aware of her history physical and prior negative talk screen is here since that was a concern that this may be drug-seeking behavior. I was informed the patient has a past history of cocaine/methamphetamine use prior to 2018. There is been no positive results since then. She recommended 6 Vicodin tablets and contact the office on Saturday for follow-up. If the pain becomes worse to return to the emergency department immediately. Patient was informed of ultrasound results and my discussion with Dr. Cheryl Orona. Patient became pale as I was informing her of the plan and disposition. She is tachypneic and appears very uncomfortable. We will obtain an ultrasound of the bladder kidney to assess for hydronephrosis due to obstructing stone. If this is negative will have Dr. Orona evaluate patient. Dr. Castano was made aware of patient's change in condition. Agrees with ultrasound. She would like to know the results of the ultrasound. If patient is still having significant pain she will see the patient in the emergency department. Lab Data Attestation: I reviewed the patient's lab results. Lab results narrative: H&H is normal. Quantitative hCG is 22,921. Labs: Laboratory Results - last 24 hr 04/13/22 04/13/22 04/13/22 11:45 11:45 14:40 WBC 8.9 RBC 4.72 Hgb 14.0 Hct 41.2 MCV 87.3 MCH 29.7 MCHC 34.0 RDW Std Deviation 41.0 RDW Coeff of Elliott 12.9 Plt Count 236 MPV 11.2 Immature Gran % (Auto) 0.300 Neut % (Auto) 56.6 Lymph % (Auto) 34.0 [place] % (Auto) 7.3 Eos % (Auto) 1.5 Baso % (Auto) 0.3 Absolute Neuts (auto) 5.1 Absolute Lymphs (auto) 3.03 Nucleated RBC % 0 HCG, Quant 90157 H Urine Color Yellow Urine Clarity Sl. Cloudy Urine pH 8.0 Ur Specific [place] 1.015 Urine Protein 15 H Urine Glucose (UA) Normal Urine Ketones 50 H Urine Occult Blood Negative Urine Nitrite Negative Urine Bilirubin Negative Urine Urobilinogen 1 H Ur Leukocyte Esterase 25 H Urine RBC 0 SEEN Urine WBC 0-5 SEEN Ur Squamous Epith Cells 0-5 SEEN Urine Bacteria 1+ Urine Mucus 1+ Radiography Diagnostic Testing: Clinical Impression(s) from Imaging Studies Obstetrics Ultrasound 04/13/22 11:38 IMPRESSION: Single live intrauterine . Estimated gestational age is 6 weeks and 5 days. A cyst is visualized along the right ovary most likely representing a corpus luteum cyst however would recommend clinical correlation and if clinically indicated follow-up evaluation to rule out an ectopic . No evidence of ovarian torsion is seen. Electronically Signed: Juvenal Galindo MD at 14:26 EDT Reading Location ID and State: [facility] / [place] Tel , Service support , Renal Ultrasound 04/13/22 14:46 IMPRESSION: Unremarkable renal ultrasound. Electronically Signed: Juvenal Galindo MD at 16:18 EDT , <Dr. Hardy Wood MD - Last Filed: 04/13/22 16:41> [facility] MDM Narrative Medical decision making narrative: Frontal diagnosis include torsion, ruptured ovarian cyst, ectopic . Appendicitis not the differential since she is status post appendectomy. There is also concern for STI with tubo-ovarian abscess. Will obtain appropriate blood work, urine was obtained since she reports dysuria. Ultrasound was obtained of the pelvis. Patient was made NPO. Confirmed that her blood type is O+. Ultrasound interpretation by radiologist was reviewed and read. There is no evidence of torsion. Radiologist did raise concern for concomitant ectopic . There is a single live intrauterine [address] Orona who is on-call for Dr. Lieberman was paged because of concern for something more significant that may not have been noted on the ultrasound. Dr. Escalona was made aware of her history physical and prior negative talk screen is here since that was a concern that this may be drug-seeking behavior. I was informed the patient has a past history of cocaine/methamphetamine use prior to 2017. There is been no positive results since then. She recommended 6 Vicodin tablets and contact the office on Saturday for follow-up. If the pain becomes worse to return to the emergency department immediately. Patient was informed of ultrasound results and my discussion with Dr. Cheryl Orona. Patient became pale as I was informing her of the plan and disposition. She is tachypneic and appears very uncomfortable. We will obtain an ultrasound of the bladder kidney to assess for hydronephrosis due to obstructing stone. If this is negative will have Dr. Orona evaluate patient. Dr. Castano was made aware of patient's change in condition. Agrees with ultrasound. She would like to know the results of the ultrasound. If patient is still having significant pain she will see the patient in the emergency department. Patient checked out to me, ultrasound renal normal. Discussed with Dr. Orona, patient is going to the operating room for laparoscopy within the next 1 to 2 hours. I checked on the patient she is doing well clinically and hem odynamically, her pain is controlled at this time. - [id number] Lab Data Labs: Laboratory Results - last 24 hr 04/13/22 04/13/22 04/13/22 11:45 11:45 14:40 WBC 8.9 RBC 4.72 Hgb 14.0 Hct 41.2 MCV 87.3 MCH 29.7 MCHC 34.0 RDW Std Deviation 41.0 RDW Coeff of [place] 12.9 Plt Count 236 MPV 11.2 Immature Gran % (Auto) 0.300 Neut % (Auto) 56.6 Lymph % (Auto) 34.0 [place] % (Auto) 7.3 Eos % (Auto) 1.5 Baso % (Auto) 0.3 Absolute Neuts (auto) 5.1 Absolute Lymphs (auto) 3.03 Nucleated RBC % 0 HCG, Quant 44054 H Urine Color Yellow Urine Clarity Sl. Cloudy Urine pH 8.0 Ur Specific [place] 1.015 Urine Protein 15 H Urine Glucose (UA) Normal Urine Ketones 50 H Urine Occult Blood Negative Urine Nitrite Negative Urine Bilirubin Negative Urine Urobilinogen 1 H Ur Leukocyte Esterase 25 H Urine RBC 0 SEEN Urine WBC 0-5 SEEN Ur Squamous Epith Cells 0-5 SEEN Urine Bacteria 1+ Urine Mucus 1+ Radiography Diagnostic Testing: Clinical Impression(s) from Imaging Studies Obstetrics Ultrasound 04/13/22 11:38 IMPRESSION: Single live intrauterine . Estimated gestational age is 6 weeks and 5 days. A cyst is visualized along the right ovary most likely representing a corpus luteum cyst however would recommend clinical correlation and if clinically indicated follow-up evaluation to rule out an ectopic . No evidence of ovarian torsion is seen. Electronically Signed: Juvenal Galindo MD at 14:26 EDT Reading Location ID and State: [address] [place] [address] Tel , Service support , Renal Ultrasound 04/13/22 14:46 IMPRESSION: Unremarkable renal ultrasound. Electronically Signed: Juvenal Galindo MD at 16:18 EDT , Discharge Plan Dx/Rx/DC Orders Clinical Impression: , threatened, early , Acute right lower quadrant pain, Cyst of right ovary Disposition Disposition: Acute Care Hospital [facility] Discharge Date/Time: 04/13/22 17:09
[2022-04-13] MEDS: Morphine 4 MG/ML Syringe IV ×4 (11:56→15:01)
[2022-04-13] MEDS: 0.9% Normal Saline 1,000 ML 1000 ML IV (11:57)
[2022-04-13] MEDS: Ondansetron 4 MG/2 ML Vial IV (11:57)
[2022-04-13 11:58] LABS: Absolute Lymphocyte Count 3.03 X10^3/uL (0.83-4.51); Absolute Neutrophil Count 5.1 X10^3/uL (2.0-7.7); Basophil# 0.03 X10^3/uL; Basophil% 0.3 % (0-1); Eosinophil# 0.13 X10^3/uL; Eosinophils% 1.5 % (0-5); Hematocrit 41.2 % (37-47); Lymphocyte # 3.03 X10^3/ul (0.83-4.51); Mean Corpuscular Hgb 29.7 pg (27.0-32.0); Mean Corpuscular Volume 87.3 fL (81-99); Mean Platelet Vol. 11.2 fl (6.2-12.0); Monocyte# 0.65 X10^3/uL; Monocyte% 7.3 % (0-10); NRBC Flagged by Analyzer 0 % (0-5); Neutrophil # 5.05 X10^3/uL (2.7-7.7); Neutrophil % 56.6 % (47-70); Platelet Count 236 K/mm3 (150-450); RBC Distribution Width CV 12.9 % (11.6-14.6); Red Blood Count 4.72 M/mm3 (4.2-5.4); White Blood Count 8.9 K/mm3 (4.4-11.0)
[2022-04-13 12:33] LABS: hCG Titer Quant., Serum 22921 mIU/mL (1-3)
[2022-04-13] MEDS: Metoclopramide 10 MG/2 ML Vial 5 MG IV ×2 (12:40→13:52)
--- NOTE | 2022-04-13 13:24 | ED.RN ---
PT REMAINS OUT OF DEPARTMENT IN U/S
[2022-04-13 14:46] LABS: Red Blood Cells-Urine 0 SEEN /hpf (0-5)
--- NOTE | 2022-04-13 14:46 | US_ITS ---
INDICATION: Severe pain right side EXAMINATION: Ultrasound US Kidney(s) complete (eg, kidneys and bladder) TECHNIQUE: Portillo scale and color doppler images were obtained of the kidneys. COMPARISON: None. FINDINGS: RIGHT KIDNEY: The right kidney measures 11.0 x 5.0 x 4.1 cm. Right renal cortex measures 1.6 cm. There is no hydronephrosis. No shadowing calculus, focal lesion or perinephric collection is demonstrated. LEFT KIDNEY: The left kidney measures 12.0 x 4.7 x 5.0 cm. Left renal cortex measures 1.7 cm. There is no hydronephrosis. No shadowing calculus, focal lesion or perinephric collection is demonstrated. URINARY BLADDER: The urinary bladder is not optimally distended, urinary bladder volume measures 29.93 mL. US/Kidney and Bladder IMPRESSION: Unremarkable renal ultrasound. Electronically Signed: Juvenal Galindo MD at 16:18 EDT ,
[2022-04-13 14:47] LABS: Color, Urine Yellow (Yellow); Glucose, Dipstick Normal (Normal); Ketone-Dipstick 50 mg/dl (Negative); Leukocyte Esterase-Dipstick 25 /ul (Negative); Nitrite-Dipstick Negative (Negative); Occult Blood-Urine Negative /ul (Negative); Protein-Dipstick 15 mg/dl (Negative); Specific Gravity, Urine 1.015 (1.002-1.030); Urine Bilirubin Dipstick Negative (Negative); Urine Clarity Sl. Cloudy (Clear); Urine Urobilinogen 1 mg/dl (Normal)
[2022-04-13 14:56] LABS: Bacteria 1+ /hpf (None Seen); Mucous, Urine 1+ /hpf (<or=2+); Squamous Epithelial Cells - UA 0-5 SEEN /hpf (5-10); White Blood Cells 0-5 SEEN /hpf (0-5)
--- NOTE | 2022-04-13 15:54 | HP.PCM_ITS ---
History and Physical Date of Admission: 04/13/22 I was called to the emergency room by Dr. Ramires for urgent consultation regarding this patient and her abdominal pain in . 27-year-old 3 para 2 who presents at approximately 6 weeks 5 days with some abdominal pain. Its been right lower quadrant intermittent over the past 3 days. Worsening worsening. Worsening since she even arrived to the emergency room. Is fine as long as she sits completely still but as soon as she moves it gets acutely worse. She has had some nausea and vomiting but she has had that with the . She has not had any diarrhea or constipation. She is not had any fevers or chills. She states she has some dysuria and pressure when she voids. She has an early and has had a small amount of bleeding today with 2 with dime size clots. No bright red bleeding. Patient states the only time she had pain like this before was when she had an IUD inserted and she had significant pain later that day. Past medical history significant for anxiety, depression, cocaine use in the past, hiatal hernia and hemorrhage. Physical exam: See vitals Awake, alert, no acute distress appears comfortable when I first entered the room. Skin warm dry and intact. Lungs clear to all station bilaterally Heart S1-S2 regular rate and rhythm Abdomen soft, nondistended, no hernias noted. Significant pain and some rebound and guarding on the right lower quadrant. Some right CVA tenderness. Some referred pain to palpation on the left. No discrete masses. [employer] exam shows normal external genitalia, normal mons pubis, normal hair distribution pattern, normal perineum and anus. Vagina is smooth without masses. Cervix is smooth, uterus is approximately 6 weeks size. Significant tenderness to uterine manipulation and right lower quadrant palpation. No discrete masses appreciated. No significant tenderness on the left side. Physiological discharge. No blood in the vault. Cervix is closed. Assessment & Plan Assessment/Plan (1) , threatened, early : PLAN: Patient's had a previous appendectomy. No evidence of hydronephrosis, kidney stone, gastroenteritis, ruptured ovarian cyst or ectopic . Ultrasound shows right ovary small cyst and no evidence of torsion. However, with patient's significant acute pain and any discomfort when she moves and need for multiple doses of narcotics, I discussed with her that I would not feel comfortable sending her home. I feel a diagnostic laparoscopy with possible right ovarian cystectomy and possible reversal of torsion is indicated. Possible right oophorectomy. Discussed with the patient she has a threatened miscarriage and the surgery medications are safe in and the risks of an untreated torsion are greater than the risks of proceeding with surgery. D iscussed with the patient that even without surgery I cannot guarantee that she will not miscarry the . After discussion, patient signed consent and desires to proceed. Significant other present for discussion and signed consent as well. We will proceed in an urgent fashion. Dissipate discharge home after surgery. (2) Acute right lower quadrant pain: (3) Cyst of right ovary: (4) 6 weeks gestation of :
[2022-04-13] MEDS: Lactated Ringers 1,000 ML 75 ML IV (17:35)
--- NOTE | 2022-04-13 17:37 | DCINST_ITS ---
Discharge Instructions Diet Discharge Diet: No restrictions Activity Discharge Activity: May Shower Return to work on:: 04/16/22 May shower in (days): 1 May resume sexual activity in: 2 weeks Lifting Restrictions: none Dressing / Incision Call your doctor if your incision/area has: Sudden Increased Bleeding and Foul Smelling Discharge Call your doctor if you observe: Fever of 101 or Higher and Using more than 1 pad per hour (for 2 hrs in a row) Cleanse incision/area with: Soap & Water Additional Dressing/Incision Instructions:: your incision has skin glue, it can get wet, leave it on for 10-14 days Follow Up Care Please Follow Up With: Cheryl Orona MD When: 2-4 weeks or as needed. Call [phone] to make an appointment or with any concerns. Test Results: Test results from this visit will be discussed in further detail at your follow- up appointment, if applicable. Discharge Plan Admission Primary Reason for Your Visit: Acute abdominal pain, diagnostic laparoscopy Attending Provider: Cheryl Orona Primary Care Provider: Scarlet Lemus Discharge Orders/Prescriptions Prescriptions: New hydrocodone-acetaminophen 5-325 mg tablet 1 - 2 tab PO Q6H PRN (Reason: pain) 4 Days Qty: 14 0RF progesterone micronized [Prometrium] 200 mg capsule 200 mg vaginal QHS 60 Days Qty: 30 1RF Rx Instructions: off 7 days; repeat cycle cephalexin 500 mg capsule 500 mg PO Q8H 7 Days Qty: 21 0RF Referrals / Follow Up: Scarlet Lemus MD [Primary Care Provider] - Disposition Disposition (needs filled in before D/C Order can be placed): Home, Self Care
--- NOTE | 2022-04-13 17:45 | OP.PCM_ITS ---
Problems Associated Problem List Diagnoses (1) Cyst of right ovary: (2) Acute right lower quadrant pain: (3) , threatened, early : (4) 6 weeks gestation of : Report of Operation Date of Procedure: 04/13/22 Pre-Operative Diagnosis: acute RLQ pain, suspected ovarian torsion, right ovarian cyst Post-Operative Diagnosis: same Surgery/Procedure Performed:: diagnostic laparoscopy Description of Surgical Findings:: Normal uterus tubes and ovaries. Small amount of serous fluid in the posterior cul-de-sac. Normal right upper quadrant. Normal peritoneal cavity. Surgeon: Cheryl Orona signals collector/analyst: Nery Gipson Type of Anesthesia: General Anesthesiologist: Mert Lopez Special Medications: none Specimen's removed: none Drains: none Estimated Blood Loss (mL): 5 Fluids Replaced: 400 mL Description of Procedure: The patient was taken to the operating room where she was prepped and draped in the dorsolithotomy position. No instrumentation of the vagina was performed. Attention was turned to the abdomen. All port sites were infiltrated with 0.25% Marcaine before skin incisions were made. A 5 mm intraumbilical incision was made. The anterior abdominal wall was tented up with 2 towel clamps while a 5 mm blade less trocar and sleeve were inserted with the Visiport.. Intraperitoneal placement was confirmed with the laparoscope. The pneumoperitoneum was created and the underlying abdominal contents were intact. The patient was placed in Trendelenburg. Right and left lower quadrant ports were placed under direct visualization lateral to the inferior epigastric vessels. The bowel was swept away and the above findings were noted. The entire abdomen was visualized. The upper abdomen was normal. Some minor adhesions in the area of her previous appendectomy were noted. There is no erythema or swelling of the fallopian tubes or uterus. Small amount of serous appearing fluid in the posterior cul-de-sac. Normal tubes and ovaries. No torsion noted. The lateral ports were removed under direct visualization and no active bleeding was noted. The pneumoperitoneum was released. The skin incisions were closed with Monocryl suture in a subcuticular fashion and skin glue by the GENERAL STUDIES PROGRAM CHAIR with me present in the operating suite. The procedure was performed by me with assistance other than as dictated above. All sponge and needle counts were correct and the patient was taken to the recovery room in stable condition. Grafts/Implants Used: none Procedure Start Time: 17:58 Procedure Stop Time: 18:07 Complications none Admit VTE Documentation VTE Present on Admission: No VTE Mechan Device Prophylaxis: SCD's VTE Pharm Prophylaxis ordered?: No Reason prophylaxis not ordered:: Procedure Not Indicated
== END 2022-04-13 19:47 | disposition home or self-care (01) ==
LOC: ED 16:41 → SDC 16:47
PROVIDERS: Emergency Provider Emergency Medicine; PCP Internal Medicine; Visit Provider Obstetrics & Gynecology
PROC: (CPT 58720; principal; 2022-04-13 16:15)
DX: O20.0 Threatened abortion (principal); O34.81 Maternal care for other abnormalities of pelvic organs, first trimester; N83.201 Unspecified ovarian cyst, right side; O99.891 Other specified diseases and conditions complicating pregnancy; R10.31 Right lower quadrant pain; F17.210 Nicotine dependence, cigarettes, uncomplicated; O99.331 Smoking (tobacco) complicating pregnancy, first trimester; Z3A.01 Less than 8 weeks gestation of pregnancy; Z90.49 Acquired absence of other specified parts of digestive tract; Z87.898 Personal history of other specified conditions
CPT/HCPCS: 49320; 00840; 76770; 76817; 81001; 84702; 85025; 99284; J7030; A4216; J2405

== ENCOUNTER 2022-04-15 13:38 | Emergency (ER) | payer MEDICAID, SELFPAY ==
[2022-04-15 13:40] VITALS: BP 111/94; PULSE 89; RESP 16; TEMP 36.4; O2SAT 98; BMI 25.7
--- NOTE | 2022-04-15 13:54 | RAD_ITS ---
STUDY: X-RAY CHEST REASON FOR EXAM: Female, 27 years old. Shortness of breath TECHNIQUE: Single frontal view of the chest. COMPARISON: 01/29/2018 FINDINGS: The lungs are clear and expanded. There is no demonstrated pleural abnormality. Normal size heart. Normal mediastinum and josé. Normal visualized pulmonary arteries. Normal visualized aortic arch and descending thoracic aorta. Normal visualized thoracic spine. Normal visualized ribs, clavicles, and shoulders. There is a lucency underlying the diaphragm. RAD/Chest 1 View (Portable) IMPRESSION: No acute cardiopulmonary process. Indeterminate lucency underlying the diaphragm, suggestive of intraperitoneal free air secondary to recent surgical intervention. N.B. : The above Results were Read Back by Mariana Sexton MD to mykel cortés MD, and understanding confirmed on 04/15/2022 15:03:29 (ET). Electronically Signed: Mariana Sexton MD at 15:05 EDT ,
[2022-04-15 14:15] LABS: Absolute Lymphocyte Count 3.78 X10^3/uL (0.83-4.51); Absolute Neutrophil Count 5.9 X10^3/uL (2.0-7.7); Basophil# 0.02 X10^3/uL; Basophil% 0.2 % (0-1); Hematocrit 35.7 % (37-47); Hemoglobin 11.6 g/dL (12.0-15.0); Lymphocyte # 3.78 X10^3/ul (0.83-4.51); Lymphocyte % 36.5 % (19-41); Mean Corp Hgb Conc 32.5 g/dL (32-36); Mean Corpuscular Hgb 28.9 pg (27.0-32.0); Mean Corpuscular Volume 88.8 fL (81-99); Mean Platelet Vol. 10.9 fl (6.2-12.0); Monocyte# 0.58 X10^3/uL; Monocyte% 5.6 % (0-10); NRBC Flagged by Analyzer 0 % (0-5); Neutrophil # 5.85 X10^3/uL (2.7-7.7); Neutrophil % 56.4 % (47-70); Platelet Count 208 K/mm3 (150-450); RBC Distribution Width CV 13.1 % (11.6-14.6); RBC Distribution Width SD 42.5 fl (35.1-43.9); Red Blood Count 4.02 M/mm3 (4.2-5.4); White Blood Count 10.4 K/mm3 (4.4-11.0)
--- NOTE | 2022-04-15 14:15 | EDS_ITS ---
HPI History of Present Illness Chief Complaint: Shortness of Breath Narrative Narrative: Patient complains with pleuritic chest pain and shortness of breath, she is 7 weeks she had recent surgery for ovarian cyst, there was a thought that she could have had ovarian torsion. She knew that she could have right shoulder pain and right chest pain from her surgery and the air after laparoscopic surgery which she did but now she has left-sided pain and left shoulder pain and left-sided chest pain which is pleuritic. It does extend into the back somewhat, no pleuritic component. She has abdominal pain but this has not changed since her surgery. She has no lower extremity edema or calf pain. [facility] Medical History Anxiety Depression Family history of malignant hyperthermia Hiatal hernia Pancreatitis hemorrhage Tonsillectomy planned Home Medications cephalexin 500 mg capsule 500 mg PO Q8H 7 days #21 caps 04/13/22 [Rx Last Taken Unknown] hydrocodone-acetaminophen 5-325mg 5mg-325mg 1 - 2 tab PO Q6H PRN pain 4 days #14 tabs 04/13/22 [Rx Last Taken Unknown] progesterone micronized 200 mg capsule (Prometrium) 200 mg vaginal QHS 60 days #30 caps 04/13/22 [Rx Last Taken Unknown] Allergy/AdvReac Type Severity Reaction Status Date / Time fructose Allergy Upset Verified 04/15/22 13:40 Stomach oxycodone [From Percocet] Allergy Anaphylaxis Verified 04/15/22 13:40 Family History Grandmother Malignant hyperthermia Surgical History History of adenoidectomy History of appendectomy Social History household members: spouse and children Smoking Status: Current every day smoker tobacco type: cigarettes substance use type: does not use ROS ROS ED ROS Narrative Past medical history: Reviewed Medications: Reviewed Social history: Noncontributory Review of systems: All systems negative except as indicated General: No fever Eyes: No visual changes ENT: No upper airway congestion, normal voice Neck: No neck pain Cardiovascular: As in HPI Respiratory: As in HPI Gastrointestinal: Abdominal pain that has not worsened. Genitourinary: No dysuria. No vaginal bleeding Musculoskeletal: Denies myalgias no difficulty with ambulation Skin: No rash Neurological: No memory loss, confusion or any focal weakness Psych: No recent behavioral changes Hematologic: No easy bleeding or easy bruising EXAM Physical Exam Narrative Exam Narrative: Physical exam General: Patient appears somewhat uncomfortable Head: Normocephalic, Atraumatic Eyes: Conjunctiva not pale ENT: Moist mucous membranes Neck: Supple, Nontender, No lymphadenopathy Cardiovascular: Regular rate, Regular rhythm Respiratory: Mostly clear breath sounds. No reproducible chest wall pain Abdomen: Soft, some tenderness throughout but minimally tender. Her laparoscopic incision sites are clean dry and intact without any signs of infection. Back: Nontender, Normal Inspection. Negative for: CVA tenderness Extremities: Nontender, No edema Skin: Normal color, No rash Neurological: Alert, Normal Strength, Normal Sensation Psychological: Normal affect Const Vital Signs: 04/15/22 13:40 04/15/22 14:22 04/15/22 15:03 Temperature 97.6 F L Temperature Source Temporal Pulse Rate 89 73 Respiratory Rate 16 16 Respiratory Effort Labored Respiratory Depth Shallow Blood Pressure 111/94 H 116/92 H Blood Pressure Mean 99 100 Pulse Ox 98 97 Oxygen Delivery Method Room Air Room Air Room Air 04/15/22 15:51 Temperature Temperature Source Pulse Rate 75 Respiratory Rate 20 H Respiratory Effort Respiratory Depth Blood Pressure Blood Pressure Mean Pulse Ox 97 Oxygen Delivery Method Room Air MDM MDM MDM Narrative Medical decision making narrative: Patient's work-up is negative. I had a long discussion with her about a PE study, she has pleuritic chest pain she is and she had recent surgery and the first dose of opiate analgesia did not improve her pain. She agreed and agreed to the risks for CT angiogram, this was done and it was negative. She needed multiple doses of analgesics, she needed anxiolytics. Her pain is now under control. I talked to Dr. Orona her OB who will follow up outpatient at this time I do not see any reason to do any further work-up, she has analgesia at home. Lab Data Labs: Laboratory Results - last 24 hr 04/15/22 04/15/22 14:05 14:05 WBC 10.4 RBC 4.02 L Hgb 11.6 L Hct 35.7 L MCV 88.8 MCH 28.9 MCHC 32.5 RDW Std Deviation 42.5 RDW Coeff of Elliott 13.1 Plt Count 208 MPV 10.9 Immature Gran % (Auto) 0.300 Neut % (Auto) 56.4 Lymph % (Auto) 36.5 Butts % (Auto) 5.6 Eos % (Auto) 1.0 Baso % (Auto) 0.2 Absolute Neuts (auto) 5.9 Absolute Lymphs (auto) 3.78 Nucleated RBC % 0 Sodium 141 Potassium 3.5 Chloride 108 H Carbon Dioxide 23.0 Anion Gap 10 BUN 8 Creatinine 0.51 L Estim Creat Clear Calc 141.81 Est GFR (MDRD) Af Amer 183 Est GFR (MDRD) Non-Af 151 BUN/Creatinine Ratio 15.6 Glucose 88 Calcium 8.4 L Total Bilirubin 0.30 AST 15 ALT 27 Alkaline Phosphatase 55 Troponin I High Sens < 3 L Total Protein 6.5 Albumin 3.4 Globulin 3.1 Albumin/Globulin Ratio 1.1 Radiography Diagnostic Testing: Clinical Impression(s) from Imaging Studies Chest X-Ray 04/15/22 13:54 IMPRESSION: No acute cardiopulmonary process. Indeterminate lucency underlying the diaphragm, suggestive of intraperitoneal free air secondary to recent surgical intervention. N.B. : The above Results were Read Back by Mariana Sexton MD to jerzy cortés MD, and understanding confirmed on 04/15/2022 15:03:29 (ET). Electronically Signed: Mariana Sexton MD at 15:05 EDT Reading Location ID and State: [facility] [place] / [place] Tel , Service support , ADDENDUM: 04/15/22 1511 IMPRESSION: No acute cardiopulmonary process. Indeterminate lucency underlying the diaphragm, suggestive of intraperitoneal free air secondary to recent surgical intervention. N.B. : The above Results were Read Back by Mariana Sexton MD to jerzy cortés MD, and understanding confirmed on 04/15/2022 15:03:29 (ET). Electronically Signed: Mariana Sexton MD at 15:05 EDT , Chest CTA 04/15/22 14:52 IMPRESSION: No demonstrated pulmonary embolism or arterial dissection. Scattered bilateral groundglass opacities, a nonspecific finding may reflect mild edema and/or an infectious process. Intraperitoneal free air consistent with recent surgical intervention Electronically Signed: Mariana Sexton MD at 15:50 EDT Reading Location ID and State: [facility] / [place] Tel , Service support , Chest x-ray 1 view read by [place] is normal it does have some free air under the diaphragm from recent surgery. Discharge Plan Triage Chief Complaint: Shortness of Breath Other Complaint: ED Provider: Jerzy Cortés Dx/Rx/DC Orders Clinical Impression: First trimester , Chest pain, Post-op pain Instructions: Pain Management After Surgery Prescriptions: No Action hydrocodone-acetaminophen 5-325 mg tablet 1 - 2 tab PO Q6H PRN (Reason: pain) 4 Days Qty: 14 0RF progesterone micronized [Prometrium] 200 mg capsule 200 mg vaginal QHS 60 Days Qty: 30 1RF Rx Instructions: off 7 days; repeat cycle cephalexin 500 mg capsule 500 mg PO Q8H 7 Days Qty: 21 0RF Primary Care Provider: Scarlet Lemus Referrals: Scarlet Lemus MD [Primary Care Provider] - 3-5 Days Disposition Disposition: Home, Self Care
[2022-04-15 14:22] VITALS: O2SAT 98
[2022-04-15] MEDS: Morphine 4 MG/ML Syringe IV (14:24)
[2022-04-15] MEDS: Ondansetron 4 MG/2 ML Vial IV (14:24)
[2022-04-15] MEDS: 0.9% Normal Saline 1,000 ML 999 ML IV (14:24)
[2022-04-15 14:33] LABS: ALB/GLOB Ratio 1.1 RATIO (0.9-2.4); AST(SGOT) 15 U/L (15-37); Alanine Aminotransfer ALT/SGPT 27 U/L (13-56); Albumin, Serum 3.4 g/dL (3.2-5.0); Alkaline Phosphatase 55 U/L (45-117); Anion Gap 10 (5-15); BUN 8 mg/dL (7-18); BUN/Creat Ratio 15.6 RATIO (10-20); Calcium,Total 8.4 mg/dL (8.5-10.1); Chloride 108 mmol/L (98-107); Creatinine, Serum 0.51 mg/dL (0.55-1.02); EST Glomerular Filtration Rate 151 mL/min (>60); Est Glom Filt Rate - Afr Amer 183 mL/min (>60); Estimated Creatinine Clearance 141.81 ml/min; Globulin 3.1 g/dL (2.2-4.2); Glucose 88 mg/dL (74-106); Potassium 3.5 mmol/L (3.5-5.1); Protein, Total 6.5 g/dL (6.4-8.2); Sodium Level 141 mmol/L (136-145); Troponin-I HS < 3 pg/mL (3.0-54.0)
--- NOTE | 2022-04-15 14:52 | CT_ITS ---
STUDY: CTA CHEST REASON FOR EXAM: Female, 27 years old. PE RADIATION DOSAGE (If Supplied By Facility): CTDIvol = ( 4.73 ) mGy, DLP = ( 159.93 ) mGycm TECHNIQUE: The examination was performed with the intravenous administration of IV 75mL Isovue-370. Post-processing of the angiographic images was performed, with multiplanar reformation and 3D reconstruction. Individualized dose optimization techniques were used for this CT. COMPARISON: Chest radiograph dated 04/15/2022 FINDINGS: Normal enhancement of the main pulmonary artery and right and left pulmonary arteries. Normal enhancement of the bilateral peripheral pulmonary arteries. There is no demonstrated pulmonary embolism. Normal thoracic aorta and visualized great vessels. There is no demonstrated aortic dissection. Normal heart and pericardium. There are no coronary artery calcifications. Normal mediastinum. Normal hilar regions. Normal visualized trachea and bronchi. There are bilateral scattered groundglass opacities. Normal chest wall structures. Normal osseous structures. The limited images of the upper abdomen demonstrates intraperitoneal free air consistent with recent surgical intervention. CT/CTA Chest W/WO Contrast IMPRESSION: No demonstrated pulmonary embolism or arterial dissection. Scattered bilateral groundglass opacities, a nonspecific finding may reflect mild edema and/or an infectious process. Intraperitoneal free air consistent with recent surgical intervention Electronically Signed: Mariana Sexton MD at 15:50 EDT ,
[2022-04-15] MEDS: HYDROmorphone 0.5 MG/0.5 ML SYRINGE IV (15:00)
[2022-04-15 15:03] VITALS: BP 116/92; PULSE 73; RESP 16; O2SAT 97
[2022-04-15] MEDS: HYDROmorphone 1 MG/ML Syringe IV (15:49)
[2022-04-15 15:51] VITALS: PULSE 75; RESP 20; O2SAT 97
[2022-04-15] MEDS: LORazepam 2 MG/ML Syringe 1 MG IV (16:21)
[2022-04-15 17:34] VITALS: BP 129/80; PULSE 71; RESP 16; O2SAT 98
== END 2022-04-15 17:38 | disposition home or self-care (01) ==
PROVIDERS: Emergency Provider Emergency Medicine; PCP Internal Medicine; Visit Provider Emergency Medicine
DX: O99.891 Other specified diseases and conditions complicating pregnancy (principal); R07.81 Pleurodynia; G89.18 Other acute postprocedural pain; O99.331 Smoking (tobacco) complicating pregnancy, first trimester; F17.210 Nicotine dependence, cigarettes, uncomplicated; Z3A.01 Less than 8 weeks gestation of pregnancy; Z87.59 Personal history of other complications of pregnancy, childbirth and the puerperium
CPT/HCPCS: 71045; 71275; 80053; 84484; 85025; 96361; 96374; 96375; 96376; 99285; J7030; Q9967; A4216; J2405

== ENCOUNTER 2022-05-18 12:32 | Emergency (ER) | payer MEDICAID, SELFPAY ==
[2022-05-18 12:34] VITALS: BP 115/89; PULSE 95; RESP 20; TEMP 36.6; O2SAT 100; BMI 25.2
--- NOTE | 2022-05-18 12:49 | EDS_ITS ---
HPI History of Present Illness Chief Complaint: Other, Pain/Inj Detail of Chief Complaint: Left flank pain Informant: patient Onset/Context/Timing Onset: Days Narrative Narrative: Patient presents with 3 days of increasing left flank pain with urinary symptoms. She states her urine has been messed up for the last month or so. It was last checked for infection about a week and a half ago and was unremarkable at that time. Patient states she now has nausea and vomiting with chills and subjective fever. She is currently 12 weeks . She denies any vaginal bleeding or spotting. [facility] Medical History Anxiety Depression Family history of malignant hyperthermia Hiatal hernia Ovarian cyst Pancreatitis hemorrhage Tonsillectomy planned Home Medications ondansetron 4 mg disintegrating tablet 4 mg PO Q8H PRN nausea and vomiting #20 tabs 05/18/22 [Rx Last Taken Unknown] Allergy/AdvReac Type Severity Reaction Status Date / Time oxycodone [From Percocet] Allergy Anaphylaxis Verified 05/18/22 12:33 fructose AdvReac Upset Verified 05/18/22 12:33 Stomach Family History Grandmother Malignant hyperthermia Surgical History History of adenoidectomy History of appendectomy Social History household members: spouse and children Smoking Status: Current every day smoker tobacco type: cigarettes substance use type: does not use ROS ROS ED Constitutional Constitutional ED: Reports chills, fever(s) and subjective Eyes Eyes: Denies change in vision or discharge from eye(s) ENT ENT ED: Denies discharge from eye(s), rhinorrhea or sore throat Cardiovascular Cardiovascular: Denies chest pain or palpitations Respiratory/Chest Respiratory/Chest: Denies cough or dyspnea Gastrointestinal Gastrointestinal: Reports abdominal pain, nausea and vomiting; Denies diarrhea Genitourinary Genitourinary ED: Reports dysuria and urinary frequency Musculoskeletal Musculoskeletal: Reports back pain; Denies extremity pain Integumentary Denies Abrasions or rash Neurologic Neurologic: Denies headache(s) or weakness Allergic/Immunologic Allergic/Immunologic ED: Denies lip swelling or urticaria EXAM Physical Exam Const Vital Signs: 05/18/22 12:34 05/18/22 12:43 Temperature 97.9 F Temperature Source Temporal Pulse Rate 95 Respiratory Rate 20 H Respiratory Effort Normal Non-Labored Blood Pressure 115/89 H Blood Pressure Mean 97 Pulse Ox 100 Oxygen Delivery Method Room Air Positive well nourished and well developed General Appearance ED: well developed HEENT Reports normocephalic and head/scalp atraumatic Eyes PERRL and EOMs intact bilaterally Neck supple Chest Wall inspection of chest normal and palpation of chest normal Resp normal respiratory effort and clear to auscultation bilaterally Cardio regular rate and regular rhythm GI GI Narrative: Abdomen is soft with hypoactive bowel sounds. Palpation: soft Back/Spine General Back: CVA tenderness left Extremity normal to inspection Neuro oriented x3 and no sensory deficits noted Sensorium / Orientation: alert Motor Exam: strength 5/5 throughout Psych Mood & Affect: anxious Skin no rashes or lesions noted MDM MDM MDM Narrative Medical decision making narrative: Patient given a single dose of Dilaudid and Zofran along with IV fluids. Lab work and urinalysis obtained. Lab Data Attestation: I reviewed the patient's lab results. Labs: Laboratory Results - last 24 hr 05/18/22 05/18/22 05/18/22 13:00 13:00 13:00 WBC 8.5 RBC 4.65 Hgb 13.7 Hct 39.3 MCV 84.5 MCH 29.5 MCHC 34.9 RDW Std Deviation 39.0 RDW Coeff of Elliott 12.7 Plt Count 205 MPV 11.5 Immature Gran % (Auto) 0.200 Neut % (Auto) 63.4 Lymph % (Auto) 28.7 [place] % (Auto) 6.7 Eos % (Auto) 0.9 Baso % (Auto) 0.1 Absolute Neuts (auto) 5.4 Absolute Lymphs (auto) 2.45 Nucleated RBC % 0 Sodium 136 Potassium 3.9 Chloride 107 Carbon Dioxide 23.0 Anion Gap 6 BUN 8 Creatinine 0.53 L Estim Creat Clear Calc 136.46 Est GFR (MDRD) Af Amer 177 Est GFR (MDRD) Non-Af 147 BUN/Creatinine Ratio 15.2 Glucose 85 Calcium 9.2 Urine Color Adriane Urine Clarity Clear Urine pH 8.0 Ur Specific [place] 1.015 Urine Protein 30 H Urine Glucose (UA) Normal Urine Ketones 15 H Urine Occult Blood Negative Urine Nitrite Negative Urine Bilirubin Negative Urine Urobilinogen 1 H Ur Leukocyte Esterase 500 H Urine RBC 0 SEEN Urine WBC 0-5 SEEN Ur Squamous Epith Cells 10-25 SEEN Urine Bacteria RARE Urine Mucus 0 SEEN Radiography Diagnostic Testing: Clinical Impression(s) from Imaging Studies Renal Ultrasound 05/18/22 13:59 IMPRESSION: Normal ultrasound of the kidneys and urinary bladder. Electronically Signed: Jeremiah Posadas MD at 15:00 EDT , Treatment and Re-Evaluation Narrative: CBC and chemistry studies unremarkable. Urinalysis shows 10-25 epithelial cells with rare bacteria, 0-5 white cells, no nitrites. Urine has been sent for culture. Renal ultrasound is performed reveals normal test results are disc ussed with the patient as well as Dr. Autumn Sexton, on-call for [facility] [employer]. heart tones are measured at 160. Patient was advised that if her urine culture grows something we will call her with prescription information. Otherwise we will write her for Zofran and she is to take Tylenol as needed at home for pain. Discharge Plan Triage Chief Complaint: Other, Pain/Inj ED Provider: Josi Dunn Dx/Rx/DC Orders Clinical Impression: Left flank pain Instructions: ED Flank Pain, Uncertain Cause Prescriptions: New ondansetron 4 mg tablet,disintegrating 4 mg PO Q8H PRN (Reason: nausea and vomiting) Qty: 20 0RF Primary Care Provider: Scarlet Lemus Referrals: Scarlet Lemus MD [Primary Care Provider] - Cheryl Orona MD [Med Staff - Active Staff] - 3-5 Days if not improving Disposition Disposition: Home, Self Care
[2022-05-18] MEDS: Ondansetron 4 MG/2 ML Vial IV (12:59)
[2022-05-18] MEDS: HYDROmorphone 0.5 MG/0.5 ML SYRINGE IV (12:59)
[2022-05-18] MEDS: 0.9% Normal Saline 1,000 ML 1000 ML IV (12:59)
[2022-05-18 13:09] LABS: Mucous, Urine 0 SEEN /hpf (<or=2+); Red Blood Cells-Urine 0 SEEN /hpf (0-5)
[2022-05-18 13:14] LABS: Absolute Lymphocyte Count 2.45 X10^3/uL (0.83-4.51); Absolute Neutrophil Count 5.4 X10^3/uL (2.0-7.7); Basophil# 0.01 X10^3/uL; Basophil% 0.1 % (0-1); Color, Urine Amber (Yellow); Eosinophil# 0.08 X10^3/uL; Eosinophils% 0.9 % (0-5); Glucose, Dipstick Normal (Normal); Hematocrit 39.3 % (37-47); Hemoglobin 13.7 g/dL (12.0-15.0); Ketone-Dipstick 15 mg/dl (Negative); Leukocyte Esterase-Dipstick 500 /ul (Negative); Lymphocyte # 2.45 X10^3/ul (0.83-4.51); Lymphocyte % 28.7 % (19-41); Mean Corp Hgb Conc 34.9 g/dL (32-36); Mean Corpuscular Hgb 29.5 pg (27.0-32.0); Mean Corpuscular Volume 84.5 fL (81-99); Mean Platelet Vol. 11.5 fl (6.2-12.0); Monocyte# 0.57 X10^3/uL; Monocyte% 6.7 % (0-10); NRBC Flagged by Analyzer 0 % (0-5); Neutrophil # 5.41 X10^3/uL (2.7-7.7); Neutrophil % 63.4 % (47-70); Nitrite-Dipstick Negative (Negative); Occult Blood-Urine Negative /ul (Negative); Platelet Count 205 K/mm3 (150-450); Protein-Dipstick 30 mg/dl (Negative); RBC Distribution Width CV 12.7 % (11.6-14.6); Red Blood Count 4.65 M/mm3 (4.2-5.4); Specific Gravity, Urine 1.015 (1.002-1.030); Urine Bilirubin Dipstick Negative (Negative); Urine Clarity Clear (Clear); Urine Urobilinogen 1 mg/dl (Normal); White Blood Count 8.5 K/mm3 (4.4-11.0)
[2022-05-18 13:23] LABS: Anion Gap 6 (5-15); BUN 8 mg/dL (7-18); BUN/Creat Ratio 15.2 RATIO (10-20); Calcium,Total 9.2 mg/dL (8.5-10.1); Chloride 107 mmol/L (98-107); Creatinine, Serum 0.53 mg/dL (0.55-1.02); EST Glomerular Filtration Rate 147 mL/min (>60); Est Glom Filt Rate - Afr Amer 177 mL/min (>60); Estimated Creatinine Clearance 136.46 ml/min; Glucose 85 mg/dL (74-106); Potassium 3.9 mmol/L (3.5-5.1); Sodium Level 136 mmol/L (136-145)
[2022-05-18 13:29] LABS: Squamous Epithelial Cells - UA 10-25 SEEN /hpf (5-10); White Blood Cells 0-5 SEEN /hpf (0-5)
[2022-05-18 13:30] LABS: Bacteria RARE /hpf (None Seen)
--- NOTE | 2022-05-18 13:59 | US_ITS ---
STUDY: RENAL ULTRASOUND - COMPLETE REASON FOR EXAM: Female, 27 years old. Left flank pain, 12 wks TECHNIQUE: Ultrasound evaluation of the kidneys was performed with real-time and static jesus-scale imaging. COMPARISON: None. FINDINGS: RIGHT KIDNEY: Normal location of the right kidney, which is normal in size. The right kidney measures 11.8 cm x 5.1 cm x 4.4 cm. There is a normal cortex of the right kidney. The renal cortex measures 1.2 cm. There is no right renal mass or cyst. There are no right renal calculi. There is no right hydronephrosis. DISTAL RIGHT URETER: There is non-visualization of the distal right ureter. There is no demonstrated right ureterovesical junction calculus. There is no demonstrated right ureteral jet. LEFT KIDNEY: Normal location of the left kidney, which is normal in size. The left kidney measures 11.8 cm x 4.6 x 5.2 cm. There is a normal cortex of the left kidney. The renal cortex measures 1.3 cm. There is no left renal mass or cyst. There are no left renal calculi. There is no left hydronephrosis. DISTAL LEFT URETER: There is non-visualization of the distal left ureter. There is no demonstrated left ureterovesical junction calculus. There is no demonstrated left ureteral jet. BLADDER: The distended urinary bladder has a volume of 28 ml. There is a normal wall thickness of the distended urinary bladder. There is no demonstrated mass within the urinary bladder. There are no demonstrated bladder calculi. US/Kidney and Bladder IMPRESSION: Normal ultrasound of the kidneys and urinary bladder. Electronically Signed: Jeremiah Posadas MD at 15:00 EDT ,
[2022-05-18] MEDS: 0.9% Normal Saline 1,000 ML 150 ML IV (14:02)
== END 2022-05-18 16:20 | disposition home or self-care (01) ==
PROVIDERS: Emergency Provider Emergency Medicine; PCP Internal Medicine; Visit Provider Emergency Medicine
DX: O26.891 Other specified pregnancy related conditions, first trimester (principal); O99.331 Smoking (tobacco) complicating pregnancy, first trimester; R10.9 Unspecified abdominal pain; F17.210 Nicotine dependence, cigarettes, uncomplicated; Z3A.12 12 weeks gestation of pregnancy; Z90.49 Acquired absence of other specified parts of digestive tract
CPT/HCPCS: 76770; 80048; 81001; 85025; 87086; 87088; 96361; 96374; 96375; 99283; J7030; A4216; J2405

== ENCOUNTER 2022-06-04 17:54 | Emergency (ER) | payer MEDICAID, SELFPAY ==
[2022-06-04 17:56] VITALS: BP 122/80; PULSE 99; RESP 18; TEMP 36.9; O2SAT 98; BMI 25.0
--- NOTE | 2022-06-04 19:00 | US_ITS ---
STUDY: SECOND AND THIRD TRIMESTER OBSTETRICAL ULTRASOUND - LIMITED REASON FOR EXAM: Female, 27 years old vag bleed- leaking clear fluids LMP: Unknown PRIOR ULTRASOUND: April 13, 2022 TECHNIQUE: Transabdominal and Transvaginal TECHNICAL QUALITY: Adequate. FINDINGS: There is a single intrauterine fetus. The fetus is in a breech presentation. There is demonstrated cardiac activity with a heart rate of 145 bpm. There is a normal amniotic fluid volume. The largest amniotic fluid pocket measures 4.6 cm. The placenta is anterior and right lateral. There are Grade 0 placental changes. The cervix measures 3 cm in length. BIOMETRY: BPD: 3.2 cm: 15 weeks, 6 days HC: 11.2 cm: 15 weeks, 3 days AC: 19 cm: 15 weeks, 1 days FL: 1.4 cm: 14 weeks, 2 days Age by LMP: 14 weeks, 3 days. IZZY by LMP: November 30, 2022. age by current US: 15 weeks, 0 days. IZZY by current US: November 26, 2022. Estimated weight: 108 grams, +/- 16 grams, 64 percentile. US/Transvaginal w/Preg US IMPRESSION: 15 week breech Electronically Signed: Jose Beckford MD at 20:48 EST ,
--- NOTE | 2022-06-04 19:01 | ED.VIS.FEGU ---
HPI HPI - Female History of Present Illness Chief Complaint: Vag Bld, Preg Narrative Narrative: Patient presents with vaginal bleeding spotting as well as which she takes may be some discharge from her vagina. She also has suprapubic cramping. She was recently checked for GC and chlamydia were negative. She has no itching, no flank pain. No recent dysuria or hematuria. PFSH PFS Medical History Anxiety Depression Family history of malignant hyperthermia Hiatal hernia Ovarian cyst Pancreatitis hemorrhage Tonsillectomy planned Home Medications ondansetron 4 mg disintegrating tablet 4 mg PO Q8H PRN nausea and vomiting #20 tabs 05/18/22 [Rx Last Taken Unknown] Allergy/AdvReac Type Severity Reaction Status Date / Time oxycodone [From Percocet] Allergy Anaphylaxis Verified 06/04/22 17:56 fructose AdvReac Upset Verified 06/04/22 17:56 Stomach Family History Grandmother Malignant hyperthermia Surgical History History of adenoidectomy History of appendectomy Social History household members: spouse and children Smoking Status: Current every day smoker tobacco type: cigarettes substance use type: does not use ROS ROS ED ROS Narrative Past medical history: Reviewed, she is G3, P2 with history of subchorionic bleeds in the past. Medications: Reviewed Social history: Noncontributory Review of systems: All systems negative except as indicated General: No fever Eyes: No visual changes ENT: No upper airway congestion, normal voice Neck: No neck pain Cardiovascular: No chest pain Respiratory: No shortness of breath or cough Gastrointestinal: Some suprapubic cramping which is chronic Genitourinary: Slight vaginal bleeding as in HPI Musculoskeletal: Denies myalgias no difficulty with ambulation Skin: No rash Neurological: No memory loss, confusion or any focal weakness Psych: No recent behavioral changes Hematologic: No easy bleeding or easy bruising EXAM Physical Exam Const Vital Signs: 06/04/22 17:56 06/04/22 20:00 Temperature 98.4 F Temperature Source Temporal Pulse Rate 99 Respiratory Rate 18 20 H Blood Pressure 122/80 H Blood Pressure Mean 94 Pulse Ox 98 Oxygen Delivery Method Room Air MDM MDM MDM Narrative Medical decision making narrative: Physical exam General: Well nourished, Well developed, No Acute Distress Head: Normocephalic, Atraumatic Eyes: Conjunctiva not pale ENT: Moist mucous membranes Neck: Supple, Nontender, No lymphadenopathy Cardiovascular: Regular rate, Regular rhythm Respiratory: No distress, CTA bilaterally Abdomen: Soft, some suprapubic pain. : Deferred Back: Nontender, Normal Inspection. Negative for: CVA tenderness Extremities: Nontender, No edema Skin: Normal color, No rash Neurological: Alert, Normal Strength, Normal Sensation Psychological: Normal affect Lab Data Labs: Laboratory Results - last 24 hr 06/04/22 06/04/22 06/04/22 19:25 19:25 20:50 WBC 9.3 RBC 4.16 L Hgb 12.2 Hct 36.2 L MCV 87.0 MCH 29.3 MCHC 33.7 RDW Std Deviation 41.1 RDW Coeff of Elliott 13.0 Plt Count 220 MPV 11.0 Immature Gran % (Auto) 0.300 Neut % (Auto) 65.9 Lymph % (Auto) 26.7 [place] % (Auto) 6.1 Eos % (Auto) 0.8 Baso % (Auto) 0.2 Absolute Neuts (auto) 6.1 Absolute Lymphs (auto) 2.49 Nucleated RBC % 0 HCG, Quant 80514 H Urine Color Yellow Urine Clarity Clear Urine pH 6.5 Ur Specific [place] 1.015 Urine Protein Negative Urine Glucose (UA) Normal Urine Ketones 150 A* Urine Occult Blood Negative Urine Nitrite Negative Urine Bilirubin Negative Urine Urobilinogen Normal Ur Leukocyte Esterase 25 H Urine RBC 0 SEEN Urine WBC 0 SEEN Ur Squamous Epith Cells 0-5 SEEN Urine Bacteria RARE Urine Mucus 1+ Radiography Diagnostic Testing: Clinical Impression(s) from Imaging Studies Obstetrics Ultrasound 06/04/22 19:00 IMPRESSION: 15 week breech Electronically Signed: Jose Beckford MD at 20:48 EST , Treatment and Re-Evaluation Narrative: Patient's work-up is unremarkable I gave her some analgesia. She received fluids she did have some ketones in the urine I gave her 2 L of fluid. She will need Zofran ODT at home since her Zofran is not helping. She can follow-up with her OB. I talked to the fruit i farmworker on-call. Discharge Plan Triage Chief Complaint: Vag Bld, Preg ED Provider: Jerzy Luna Dx/Rx/DC Orders Clinical Impression: Abdominal pain, Threatened miscarriage, Dehydration, Nausea & vomiting Instructions: ED Dehydration (Adult), ED Vomiting (Adult) Prescriptions: No Action ondansetron 4 mg tablet,disintegrating 4 mg PO Q8H PRN (Reason: nausea and vomiting) Qty: 20 0RF Primary Care Provider: Scarlet Lemus Referrals: Scarlet Lemus MD [Primary Care Provider] - Cheryl Orona MD [Med Staff - Active Staff] - 3-5 Days Disposition Disposition: Home, Self Care
[2022-06-04] MEDS: 0.9% Normal Saline 1,000 ML 1000 ML IV (19:24)
[2022-06-04 19:32] LABS: Absolute Lymphocyte Count 2.49 X10^3/uL (0.83-4.51); Absolute Neutrophil Count 6.1 X10^3/uL (2.0-7.7); Basophil# 0.02 X10^3/uL; Basophil% 0.2 % (0-1); Eosinophil# 0.07 X10^3/uL; Eosinophils% 0.8 % (0-5); Hematocrit 36.2 % (37-47); Hemoglobin 12.2 g/dL (12.0-15.0); Lymphocyte # 2.49 X10^3/ul (0.83-4.51); Lymphocyte % 26.7 % (19-41); Mean Corp Hgb Conc 33.7 g/dL (32-36); Mean Corpuscular Hgb 29.3 pg (27.0-32.0); Monocyte# 0.57 X10^3/uL; Monocyte% 6.1 % (0-10); NRBC Flagged by Analyzer 0 % (0-5); Neutrophil # 6.13 X10^3/uL (2.7-7.7); Neutrophil % 65.9 % (47-70); Platelet Count 220 K/mm3 (150-450); RBC Distribution Width SD 41.1 fl (35.1-43.9); Red Blood Count 4.16 M/mm3 (4.2-5.4); White Blood Count 9.3 K/mm3 (4.4-11.0)
[2022-06-04 20:00] VITALS: RESP 20
[2022-06-04] MEDS: Morphine 4 MG/ML Syringe IV (20:13)
[2022-06-04] MEDS: Ondansetron 4 MG/2 ML Vial IV ×2 (20:13→23:03)
[2022-06-04 20:16] LABS: hCG Titer Quant., Serum 25156 mIU/mL (1-3)
[2022-06-04 20:58] LABS: Red Blood Cells-Urine 0 SEEN /hpf (0-5); White Blood Cells 0 SEEN /hpf (0-5)
[2022-06-04 21:14] LABS: Color, Urine Yellow (Yellow); Glucose, Dipstick Normal (Normal); Leukocyte Esterase-Dipstick 25 /ul (Negative); Nitrite-Dipstick Negative (Negative); Occult Blood-Urine Negative /ul (Negative); Protein-Dipstick Negative (Negative); Specific Gravity, Urine 1.015 (1.002-1.030); Urine Bilirubin Dipstick Negative (Negative); Urine Clarity Clear (Clear); Urine Urobilinogen Normal (Normal); Urine pH 6.5 (5.0 - 8.0)
[2022-06-04 21:27] LABS: Bacteria RARE /hpf (None Seen); Ketone-Dipstick 150 mg/dl (Negative); Mucous, Urine 1+ /hpf (<or=2+); Squamous Epithelial Cells - UA 0-5 SEEN /hpf (5-10)
[2022-06-04] MEDS: Lactated Ringers 1,000 ML 999 ML IV (21:45)
[2022-06-04 22:00] VITALS: RESP 18
[2022-06-04] MEDS: Dext 5%-0.45% NS 1,000 ML 999 ML IV (23:05)
== END 2022-06-05 00:52 | disposition home or self-care (01) ==
PROVIDERS: Emergency Provider Emergency Medicine; PCP Internal Medicine; Visit Provider Emergency Medicine
DX: O20.0 Threatened abortion (principal); O21.1 Hyperemesis gravidarum with metabolic disturbance; E86.0 Dehydration; O99.330 Smoking (tobacco) complicating pregnancy, unspecified trimester; F17.210 Nicotine dependence, cigarettes, uncomplicated
CPT/HCPCS: 76817; 81001; 84702; 85025; 96361; 96374; 96375; 96376; 99283; J7030; J7120; A4216; J2405

== ENCOUNTER 2022-08-10 08:55 | Outpatient (CLI) | payer MEDICAID, SELFPAY ==
[2022-08-10 09:00] VITALS: BMI 24.3
[2022-08-10 09:07] VITALS: BP 119/82; PULSE 90; TEMP 36.2
[2022-08-10 09:08] VITALS: PULSE 87; O2SAT 98
[2022-08-10 10:25] VITALS: TEMP 36.9
[2022-08-10 11:33] LABS: Fetal Fibronectin Negative
--- NOTE | 2022-08-10 11:36 | PCM.HP.OB ---
HPI - General HPI Narrative YVONNE PATEL, is a 27 F who presents PFSH PFS Medical History Anxiety Depression Family history of malignant hyperthermia Hiatal hernia Ovarian cyst Pancreatitis hemorrhage Tonsillectomy planned Home Medications ondansetron 4 mg disintegrating tablet 4 mg PO Q8H PRN nausea and vomiting #20 tabs 05/18/22 [Rx Last Taken 08/08/22 10:00] prenat [id number] 1 tablet PO/SL DAILY 08/10/22 [History Last Taken 08/09/22 21:00] Allergy/AdvReac Type Severity Reaction Status Date / Time fructose AdvReac Mild Upset Verified 08/10/22 09:16 Stomach Family History Grandmother Malignant hyperthermia Surgical History History of adenoidectomy History of appendectomy Social History household members: spouse and children Smoking Status: Current every day smoker tobacco type: cigarettes substance use type: does not use History Elective abortions Hx Para 1 Spontaneous abortions Hx # Term Pregnancies Ectopic pregnancies Hx # Pregnancies Multiple births # of living children Vital Signs Vital Signs Vital Signs: 08/10/22 09:07 08/10/22 09:07 08/10/22 09:08 Temperature Temperature Source Pulse Rate 90 87 Blood Pressure 119/82 H BP Systolic 119 BP Diastolic 82 Pulse Ox 08/10/22 09:08 08/10/22 09:07 08/10/22 10:25 Temperature 97.1 F L Temperature Source Tympanic Pulse Rate Blood Pressure BP Systolic BP Diastolic Pulse Ox 98 08/10/22 10:25 Temperature 98.4 F Temperature Source Pulse Rate Blood Pressure BP Systolic BP Diastolic Pulse Ox Weight Weight: 141 lb 5.061 oz Body Mass Index (BMI) 24.3 Labs Labs Labs: Blood Type O POSITIVE Antibody Screen NEGATIVE Hct 35.9 % (37-47) L Hgb 12.0 g/dL (12.0-15.0) Obstetrics US
[2022-08-10] MEDS: Acetaminophen 500 MG Tablet 1000 MG PO (11:42)
[2022-08-10] MEDS: Lactated Ringers 1,000 ML 999 ML IV (11:54)
[2022-08-10 12:06] LABS: Absolute Lymphocyte Count 2.41 X10^3/uL (0.83-4.51); Absolute Neutrophil Count 6.5 X10^3/uL (2.0-7.7); Basophil# 0.01 X10^3/uL; Basophil% 0.1 % (0-1); Eosinophil# 0.05 X10^3/uL; Eosinophils% 0.5 % (0-5); Hematocrit 35.9 % (37-47); Lymphocyte # 2.41 X10^3/ul (0.83-4.51); Lymphocyte % 25.2 % (19-41); Mean Corp Hgb Conc 33.4 g/dL (32-36); Mean Corpuscular Volume 89.8 fL (81-99); Mean Platelet Vol. 11.7 fl (6.2-12.0); Monocyte% 5.2 % (0-10); NRBC Flagged by Analyzer 0 % (0-5); Neutrophil # 6.54 X10^3/uL (2.7-7.7); Neutrophil % 68.6 % (47-70); Platelet Count 204 K/mm3 (150-450); RBC Distribution Width CV 12.6 % (11.6-14.6); RBC Distribution Width SD 41.5 fl (35.1-43.9); White Blood Count 9.6 K/mm3 (4.4-11.0)
[2022-08-10 12:35] LABS: Mucous, Urine 0 SEEN /hpf (<or=2+); Red Blood Cells-Urine 0 SEEN /hpf (0-5)
[2022-08-10 12:38] LABS: Color, Urine Yellow (Yellow); Glucose, Dipstick Normal (Normal); Ketone-Dipstick 5 mg/dl (Negative); Leukocyte Esterase-Dipstick 100 /ul (Negative); Nitrite-Dipstick Negative (Negative); Occult Blood-Urine Negative /ul (Negative); Protein-Dipstick Negative (Negative); Urine Bilirubin Dipstick Negative (Negative); Urine Clarity Sl. Cloudy (Clear); Urine Urobilinogen Normal (Normal)
[2022-08-10 12:43] LABS: Fibrinogen 415 mg/dl (203-444)
[2022-08-10 12:43] LABS: Squamous Epithelial Cells - UA 5-10 SEEN /hpf (5-10)
[2022-08-10 12:44] LABS: Bacteria 2+ /hpf (None Seen); White Blood Cells 10-25 SEEN /hpf (0-5)
[2022-08-10 12:51] LABS: ALB/GLOB Ratio 0.9 RATIO (0.9-2.4); AST(SGOT) 6 U/L (15-37); Alanine Aminotransfer ALT/SGPT 16 U/L (13-56); Albumin, Serum 3.1 g/dL (3.2-5.0); Alkaline Phosphatase 58 U/L (45-117); Anion Gap 7 (5-15); BUN 7 mg/dL (7-18); BUN/Creat Ratio 17.8 RATIO (10-20); Calcium,Total 8.7 mg/dL (8.5-10.1); Chloride 106 mmol/L (98-107); Creatinine, Serum 0.39 mg/dL (0.55-1.02); EST Glomerular Filtration Rate 206 mL/min (>60); Est Glom Filt Rate - Afr Amer 249 mL/min (>60); Estimated Creatinine Clearance 185.45 ml/min; Globulin 3.6 g/dL (2.2-4.2); Glucose 96 mg/dL (74-106); Potassium 3.4 mmol/L (3.5-5.1); Protein, Total 6.7 g/dL (6.4-8.2); Sodium Level 137 mmol/L (136-145)
--- NOTE | 2022-08-11 10:27 | OB.TRI.NOTE ---
HPI - General General Date of Admission: 08/11/22 Date of Service: 08/11/22 Chief Complaint: pain HPI Narrative YVONNE PATEL, is a 27 F who presents at 24 wk gestation with pelvic pain. She states she has been having severe pelvic pain. No discharge, vb, lof. +FM. No constipation. Some diarrhea over night. No dysuria or difficulty with urination. PFSH PFSH Medical History Anxiety Depression Family history of malignant hyperthermia Hiatal hernia Ovarian cyst Pancreatitis hemorrhage Tonsillectomy planned Home Medications ondansetron 4 mg disintegrating tablet 4 mg PO Q8H PRN nausea and vomiting #20 tabs 05/18/22 [Rx Last Taken 08/08/22 10:00] prenat [id number] 1 tablet PO/SL DAILY 08/10/22 [History Last Taken 08/09/22 21:00] Allergy/AdvReac Type Severity Reaction Status Date / Time fructose AdvReac Mild Upset Verified 08/10/22 09:16 Stomach Family History Grandmother Malignant hyperthermia Surgical History History of adenoidectomy History of appendectomy Social History household members: spouse and children Smoking Status: Current every day smoker tobacco type: cigarettes substance use type: does not use History Elective abortions Hx Para 1 Spontaneous abortions Hx # Term Pregnancies Ectopic pregnancies Hx # Pregnancies Multiple births # of living children Physical Exam Const alert and no apparent distress Constitutional Narrative: Uncomfortable at times GI soft to palpation GI Narrative: Gravid, +Supra pubic tenderness, non acute Narrative: Cvx c/t/h NST FHR Rate Baby A Baseline: 135 Variability:: Moderate Uterine Activity:: no ctx's Assessment & Plan (1) 24 weeks gestation of : PLAN: Cvx closed on recheck and FFN negative. Discussed no evidence of PTL at this time. CBC w/ diff and CMP acceptable. IVF bolus given. FHT reassuring for gest age. Supra pubic tenderness on exam with possible UTI - start Macrobid and send urine cx. Follow up in office next weekend. (2) Pelvic pain: (3) contractions:
== END 2022-08-10 13:20 | disposition home or self-care (01) ==
LOC: WPOUT 08:57 → WP 08:58
PROVIDERS: PCP Internal Medicine; Referring Provider Obstetrics & Gynecology; Visit Provider Obstetrics & Gynecology
DX: O26.892 Other specified pregnancy related conditions, second trimester (principal); R10.2 Pelvic and perineal pain; O99.332 Smoking (tobacco) complicating pregnancy, second trimester; F17.210 Nicotine dependence, cigarettes, uncomplicated; Z3A.24 24 weeks gestation of pregnancy; Z90.49 Acquired absence of other specified parts of digestive tract
CPT/HCPCS: 96360; 36415; 59025; 59050; 76815; 80053; 81001; 82731; 85025; 85384; 86850; 86900; 86901; 87086; 87088; 99221; J7120; G0378

== ENCOUNTER 2022-11-01 10:00 | Outpatient (CLI) | payer MEDICAID, SELFPAY ==
[2022-11-01 10:46] VITALS: BP 100/65; PULSE 77; TEMP 36.7; O2SAT 98
[2022-11-01 10:52] VITALS: BMI 26.4
[2022-11-01 11:18] LABS: Mucous, Urine 0 SEEN /hpf (<or=2+); Red Blood Cells-Urine 0 SEEN /hpf (0-5)
[2022-11-01 11:19] LABS: Color, Urine Yellow (Yellow); Glucose, Dipstick Normal (Normal); Leukocyte Esterase-Dipstick 100 /ul (Negative); Nitrite-Dipstick Negative (Negative); Occult Blood-Urine Negative /ul (Negative); Protein-Dipstick Negative (Negative); Urine Bilirubin Dipstick Negative (Negative); Urine Clarity Sl. Cloudy (Clear); Urine Urobilinogen Normal (Normal)
[2022-11-01 11:22] LABS: Ketone-Dipstick 150 mg/dl (Negative)
[2022-11-01 11:27] LABS: Bacteria RARE /hpf (None Seen); Squamous Epithelial Cells - UA 5-10 SEEN /hpf (5-10); White Blood Cells 0-5 SEEN /hpf (0-5)
[2022-11-01 11:46] LABS: ROM Internal Control Test YES-OK TO RESULT pt. (Internal QC); ROM Patient Test Negative (Negative)
[2022-11-01] MEDS: Lactated Ringers 1,000 ML 999 ML IV (12:41)
[2022-11-01] MEDS: Ondansetron 4 MG/2 ML Vial IV (12:43)
--- NOTE | 2022-11-01 19:06 | OB.TRI.NOTE ---
HPI - General HPI Narrative YVONNE PATEL, is a 27 F at 35.6 weeks gestation who presents to triage for cramping, lower back pain, diarrhea and overall malaise. Maternal Data Information IZZY Calculator Estimated Delivery Date Method Current WG Current Estimate 11/30/22 Manual 35w 6d PFSH PFSH Medical History Anxiety Depression Family history of malignant hyperthermia Hiatal hernia Ovarian cyst Pancreatitis hemorrhage Tonsillectomy planned Home Medications ondansetron 4 mg disintegrating tablet 4 mg PO Q8H PRN nausea and vomiting #20 tabs 05/18/22 [Rx Last Taken 08/08/22 10:00] Allergy/AdvReac Type Severity Reaction Status Date / Time fructose AdvReac Mild Upset Verified 08/10/22 09:16 Stomach Family History Grandmother Malignant hyperthermia Surgical History History of adenoidectomy History of appendectomy Social History household members: spouse and children Smoking Status: Current every day smoker tobacco type: cigarettes substance use type: does not use History Elective abortions Hx Para 1 Spontaneous abortions Hx # Term Pregnancies Ectopic pregnancies Hx # Pregnancies Multiple births # of living children ROS Eyes Eyes: Denies blurry vision Cardiovascular Cardiovascular: Reports none; Denies chest pain at rest, chest pain with activity or dizziness Respiratory/Chest Respiratory/Chest: Denies cough or dyspnea Gastrointestinal Gastrointestinal: Reports other; Denies vomiting Genitourinary Genitourinary: Denies dysuria Musculoskeletal Musculoskeletal: Reports none Integumentary Integumentary: Reports none; Denies rash Neurologic Neurologic: Denies dizziness, headache(s) or other visual disturbances Physical Exam Const alert and no apparent distress General Appearance: cooperative Orientation / Consciousness: awake Exam Limitations: no limitations HEENT normocephalic Eyes General Eye: normal appearance of both eyes Neck full ROM Chest inspection of chest normal Resp normal respiratory effort and normal air movement Effort and Inspection: symmetric chest movement Auscultation: clear to auscultation bilaterally Cardio regular rate GI soft to palpation, non-tender and non-distended Inspection: and other Back/Spine normal ROM Extremity full ROM, normal capillary refill and no calf tenderness Skin no rashes or lesions noted Neuro oriented x3 and CN's II-XII intact bilaterally Psych mental status grossly normal NST FHR Rate Baby A Baseline: 120 Variability:: Moderate Decelerations:: None NST Reactive:: Yes FHR Category:: Category I Uterine Activity:: irregular Assessment & Plan (1) contractions: (2) Pelvic pain: (3) Depression affecting : (4) Anxiety: (5) Diarrhea: (6) Back pain affecting : PLAN: Plan CE- 1/thick / high- unchanged after extended monitoring Irregular contractions via TOCO UA- ketones Suspect dehydration Start IV and give 1000 cc bolus of LR D/C home with follow up in office this week Dr. Sexton notified
== END 2022-11-01 14:35 | disposition home or self-care (01) ==
LOC: WPOUT 10:32 → WP 10:48
PROVIDERS: PCP Internal Medicine; Referring Provider Advanced Practice Midwife; Visit Provider Advanced Practice Midwife
DX: O47.1 False labor at or after 37 completed weeks of gestation (principal); O99.333 Smoking (tobacco) complicating pregnancy, third trimester; O99.891 Other specified diseases and conditions complicating pregnancy; O99.343 Other mental disorders complicating pregnancy, third trimester; F32.A Depression, unspecified; F41.9 Anxiety disorder, unspecified; F17.210 Nicotine dependence, cigarettes, uncomplicated; R10.2 Pelvic and perineal pain; R19.7 Diarrhea, unspecified; M54.9 Dorsalgia, unspecified; Z3A.35 35 weeks gestation of pregnancy
CPT/HCPCS: 96365; 96375; 59025; 59050; 81001; 84112; J7120; J2405

== ENCOUNTER 2022-11-14 23:45 | Outpatient (CLI) | payer MEDICAID, SELFPAY ==
[2022-11-15 00:04] VITALS: BP 112/71; PULSE 89; TEMP 37.2; O2SAT 97
[2022-11-15 00:17] VITALS: BMI 27.1
[2022-11-15 00:57] LABS: ROM Internal Control Test YES-OK TO RESULT pt. (Internal QC); ROM Patient Test Negative (Negative)
[2022-11-15 01:08] VITALS: PULSE 76; O2SAT 83
--- NOTE | 2022-11-16 20:35 | OB.TRI.HP_ITS ---
HPI - General HPI Narrative YVONNE PATEL, is a 27 F who presents at 37w6d, with IZZY;11/30/22. Presents for possible ROM. Irregular contractions. No vaginal bleeding. Maternal Data Information IZZY Calculator Estimated Delivery Date Method Current WG Current Estimate 11/30/22 Manual 38w 0d PFSH PFSH Medical History Anxiety Depression Family history of malignant hyperthermia Hiatal hernia Ovarian cyst Pancreatitis hemorrhage Tonsillectomy planned Home Medications ondansetron 4 mg disintegrating tablet 4 mg PO Q8H PRN nausea and vomiting #20 tabs 05/18/22 [Rx Last Taken 08/08/22 10:00] Allergy/AdvReac Type Severity Reaction Status Date / Time fructose AdvReac Mild Upset Verified 11/15/22 00:17 Stomach Family History Grandmother Malignant hyperthermia Surgical History History of adenoidectomy History of appendectomy Social History household members: spouse and children Smoking Status: Current every day smoker tobacco type: cigarettes substance use type: does not use History Elective abortions Hx Para 1 Spontaneous abortions Hx # Term Pregnancies Ectopic pregnancies Hx # Pregnancies Multiple births # of living children Visit Details OB Flowsheet Initial Weight: Not Recorded Date -?-?-?-?-?-?--?-?-?-?-?-?- EGA Weight BP Urine Prot -?-?-?-?-?-?-?-?-?-?-?-?- Glucose FHR FuHt Pres Dilation -?-?-?-?-?-?-?-?-?-?-?-?- Effaced St Visit Note 11/14/22 -?-?-?-?-?-?-?-?-?-?-?-?- 37w 6d 158 lb 3.2 oz 112/71 -?-?-?-?-?-?-?-?-?-?-?-?- -?-?-?-?-?-?-?-?-?-?-?-?- NST FHR Rate Baby A Baseline: 120 Variability:: Moderate Accelerations:: 15 x 15 Decelerations:: None NST Reactive:: Yes Uterine Activity:: Irregular Assessment & Plan (1) Back pain affecting : (2) False labor: (3) Vaginal discharge: PLAN: Plan 1) ROM plus negative 2) Reactive NST 3) No signs of active labor 4) Labor instructions reviewed and when to call
== END 2022-11-15 02:35 | disposition home or self-care (01) ==
LOC: WPOUT 23:52 → WP 23:52
PROVIDERS: PCP Internal Medicine; Referring Provider Advanced Practice Midwife; Visit Provider Advanced Practice Midwife
DX: O47.1 False labor at or after 37 completed weeks of gestation (principal); O99.891 Other specified diseases and conditions complicating pregnancy; N89.8 Other specified noninflammatory disorders of vagina; M54.9 Dorsalgia, unspecified; O99.333 Smoking (tobacco) complicating pregnancy, third trimester; F17.210 Nicotine dependence, cigarettes, uncomplicated; Z3A.37 37 weeks gestation of pregnancy
CPT/HCPCS: 59025; 59050; 84112; 99221; G0378

== ENCOUNTER 2022-11-17 08:20 | Outpatient (CLI) | payer MEDICAID, SELFPAY ==
[2022-11-17 08:26] VITALS: BMI 26.7
[2022-11-17 08:28] VITALS: BP 137/82; PULSE 100
[2022-11-17 08:30] VITALS: TEMP 36.7
[2022-11-17 09:27] LABS: Color, Urine Yellow (Yellow); Glucose, Dipstick Normal (Normal); Ketone-Dipstick Negative (Negative); Leukocyte Esterase-Dipstick 25 /ul (Negative); Nitrite-Dipstick Negative (Negative); Occult Blood-Urine Negative /ul (Negative); Protein-Dipstick 15 mg/dl (Negative); Urine Bilirubin Dipstick Negative (Negative); Urine Clarity Clear (Clear); Urine Urobilinogen 1 mg/dl (Normal)
--- NOTE | 2023-01-20 04:18 | OB.TRI.NOTE ---
HPI - General General Date of Admission: 12/19/22 Date of Service: 12/19/22 HPI Narrative YVONNE PATEL, is a 27 F who presents Maternal Data Information IZZY Calculator Estimated Delivery Date Method Current WG Current Estimate 11/30/22 Manual 47w 2d PFSH PFS Medical History (Updated 11/23/22 @ 00:03 by Dagoberto Chowdhruy) 38 weeks gestation of Anxiety Depression Depression affecting Family history of malignant hyperthermia Hiatal hernia History of cocaine abuse Ovarian cyst Pancreatitis hemorrhage PROM (premature rupture of membranes) Tonsillectomy planned Vaginal delivery Allergy/AdvReac Type Severity Reaction Status Date / Time fructose AdvReac Mild Upset Verified 11/18/22 07:06 Stomach Family History Grandmother Malignant hyperthermia Surgical History History of adenoidectomy History of appendectomy Social History household members: spouse and children Smoking Status: Current every day smoker tobacco type: cigarettes substance use type: does not use History Elective abortions Hx Para 2 Spontaneous abortions Hx # Term Pregnancies Ectopic pregnancies Hx # Pregnancies Multiple births # of living children
--- NOTE | 2023-01-28 11:48 | OB.TRI.NOTE ---
HPI - General HPI Narrative YVONNE PATEL, is a 27 F who presents at 38 weeks with irregular contractions. Maternal Data Information IZZY Calculator Estimated Delivery Date Method Current WG Current Estimate 11/30/22 Manual 48w 3d PFSH PFSH Medical History (Updated 11/23/22 @ 00:03 by Dagoberto Chowdhury) 38 weeks gestation of Anxiety Depression Depression affecting Family history of malignant hyperthermia Hiatal hernia History of cocaine abuse Ovarian cyst Pancreatitis hemorrhage PROM (premature rupture of membranes) Tonsillectomy planned Vaginal delivery Allergy/AdvReac Type Severity Reaction Status Date / Time fructose AdvReac Mild Upset Verified 11/18/22 07:06 Stomach Family History Grandmother Malignant hyperthermia Surgical History History of adenoidectomy History of appendectomy Social History household members: spouse and children Smoking Status: Current every day smoker tobacco type: cigarettes substance use type: does not use History Elective abortions Hx Para 2 Spontaneous abortions Hx # Term Pregnancies Ectopic pregnancies Hx # Pregnancies Multiple births # of living children NST FHR Rate Baby A Baseline: 145 Variability:: Moderate Accelerations:: 15 x 15 Decelerations:: None NST Reactive:: Yes Uterine Activity:: Irregular Assessment & Plan (1) False labor: PLAN: Plan 1) No signs of active labor 2) Labor instructions reviewed 3) D/C home
== END 2022-11-17 09:00 | disposition home or self-care (01) ==
LOC: WPOUT 08:26 → WP 08:26
PROVIDERS: PCP Internal Medicine; Referring Provider Advanced Practice Midwife; Visit Provider Advanced Practice Midwife
DX: O47.1 False labor at or after 37 completed weeks of gestation (principal); O99.333 Smoking (tobacco) complicating pregnancy, third trimester; F17.210 Nicotine dependence, cigarettes, uncomplicated; Z3A.38 38 weeks gestation of pregnancy
CPT/HCPCS: 59025; 59050; 81002; 87086; 87088; G0378; 99221

== ENCOUNTER 2022-11-18 07:55 | Inpatient (IN) | payer MEDICAID, SELFPAY ==
[2022-11-18] VITALS (58 sets, daily range): BP systolic 89–142; BP diastolic 51–84; PULSE 78–116; RESP 16; TEMP 36.2–36.9; O2SAT 96–100; BMI 26.8
[2022-11-18 07:43] LABS: ROM Internal Control Test YES-OK TO RESULT pt. (Internal QC)
[2022-11-18 07:45] LABS: ROM Patient Test POSITIVE (Negative)
[2022-11-18] MEDS: Lactated Ringers 1,000 ML 200 ML IV ×2 (08:05→13:37)
[2022-11-18 08:26] LABS: Absolute Lymphocyte Count 2.73 X10^3/uL (0.83-4.51); Absolute Neutrophil Count 8.4 X10^3/uL (2.0-7.7); Basophil# 0.03 X10^3/uL; Basophil% 0.2 % (0-1); Eosinophils% 0.8 % (0-5); Hematocrit 36.9 % (37-47); Hemoglobin 11.9 g/dL (12.0-15.0); Lymphocyte # 2.73 X10^3/ul (0.83-4.51); Lymphocyte % 22.4 % (19-41); Mean Corp Hgb Conc 32.2 g/dL (32-36); Mean Corpuscular Hgb 28.3 pg (27.0-32.0); Mean Corpuscular Volume 87.6 fL (81-99); Mean Platelet Vol. 11.7 fl (6.2-12.0); Monocyte# 0.81 X10^3/uL; Monocyte% 6.7 % (0-10); NRBC Flagged by Analyzer 0 % (0-5); Platelet Count 221 K/mm3 (150-450); RBC Distribution Width CV 13.1 % (11.6-14.6); RBC Distribution Width SD 41.3 fl (35.1-43.9); Red Blood Count 4.21 M/mm3 (4.2-5.4); White Blood Count 12.2 K/mm3 (4.4-11.0)
[2022-11-18] MEDS: LACTATED RINGERS 500 ML 999 ML IV ×2 (08:31→14:57)
[2022-11-18] MEDS: Oxytocin 15 Units/NS 250ml 15 UNITS/250 ML IV.SOLN 2 UNITS IV (08:40)
[2022-11-18] MEDS: fentaNYL-bupivacaine (epidural) 100 ML BAG EPIDURAL (09:29)
[2022-11-18 09:47] LABS: Syphilis Antibodies Non-reactive
--- NOTE | 2022-11-18 09:47 | PCM.HP.OB ---
HPI - General General Date of Admission: 11/18/22 HPI Narrative YVONNE PATEL, is a 27 F who presents at 38 w 2 d with IZZY; 11/30/22. . Presents with PROM early this am around 0600. Irregular contractions over the weekend Maternal Data Information IZZY Calculator Estimated Delivery Date Method Current WG Current Estimate 11/30/22 Manual 38w 2d PFSH PFSH Medical History (Updated 11/18/22 @ 10:01 by Kenzie Ferreira CNM) Anxiety Depression Family history of malignant hyperthermia Hiatal hernia Ovarian cyst Pancreatitis hemorrhage Tonsillectomy planned Home Medications ondansetron 4 mg disintegrating tablet 4 mg PO Q8H PRN nausea and vomiting #20 tabs 05/18/22 [Rx Last Taken 09/19/22] Allergy/AdvReac Type Severity Reaction Status Date / Time fructose AdvReac Mild Upset Verified 11/18/22 07:06 Stomach Family History Grandmother Malignant hyperthermia Surgical History History of adenoidectomy History of appendectomy Social History household members: spouse and children Smoking Status: Current every day smoker tobacco type: cigarettes substance use type: does not use History Elective abortions Hx Para 2 Spontaneous abortions Hx # Term Pregnancies Ectopic pregnancies Hx # Pregnancies Multiple births # of living children NST FHR Rate Baby A Baseline: 145 Variability:: Moderate Accelerations:: 15 x 15 Decelerations:: None NST Reactive:: Yes FHR Category:: Category I Uterine Activity:: Every 3 minutes Vital Signs Vital Signs Vital Signs: 11/18/22 07:03 11/18/22 07:03 11/18/22 07:04 Temperature Temperature Source Temporal Pulse Rate 108 H Blood Pressure 124/82 H BP Systolic 124 BP Diastolic 82 Pulse Ox 11/18/22 07:04 11/18/22 08:24 11/18/22 08:24 Temperature 97.5 F L Temperature Source Pulse Rate 92 Blood Pressure 117/80 BP Systolic 117 BP Diastolic 80 Pulse Ox 11/18/22 08:22 11/18/22 09:13 11/18/22 09:13 Temperature 97.6 F L Temperature Source Pulse Rate 97 Blood Pressure 122/84 H BP Systolic 122 BP Diastolic 84 Pulse Ox 11/18/22 09:12 11/18/22 09:17 11/18/22 09:17 Temperature Temperature Source Pulse Rate 92 Blood Pressure 128/75 H BP Systolic 128 BP Diastolic 75 Pulse Ox 100 11/18/22 09:17 11/18/22 09:22 11/18/22 09:22 Temperature Temperature Source Pulse Rate 96 Blood Pressure 129/78 H BP Systolic 129 BP Diastolic 78 Pulse Ox 100 11/18/22 09:22 11/18/22 09:22 11/18/22 09:27 Temperature Temperature Source Pulse Rate 99 104 H Blood Pressure BP Systolic BP Diastolic Pulse Ox 98 11/18/22 09:27 11/18/22 09:28 11/18/22 09:28 Temperature Temperature Source Pulse Rate 91 Blood Pressure 116/71 BP Systolic 116 BP Diastolic 71 Pulse Ox 100 11/18/22 09:32 11/18/22 09:32 11/18/22 09:32 Temperature Temperature Source Pulse Rate 99 Blood Pressure 119/74 BP Systolic 119 BP Diastolic 74 Pulse Ox 98 11/18/22 09:37 11/18/22 09:37 11/18/22 09:37 Temperature Temperature Source Pulse Rate 85 Blood Pressure 123/71 H BP Systolic 123 BP Diastolic 71 Pulse Ox 99 11/18/22 09:42 11/18/22 09:42 11/18/22 09:42 Temperature Temperature Source Pulse Rate 95 Blood Pressure 119/72 BP Systolic 119 BP Diastolic 72 Pulse Ox 99 11/18/22 09:38 Temperature 98.2 F Temperature Source Pulse Rate Blood Pressure BP Systolic BP Diastolic Pulse Ox Weight Weight: 156 lb 1.396 oz Body Mass Index (BMI) 26.8 Physical Exam Const alert and oriented x3 General Appearance: cooperative Orientation / Consciousness: awake, oriented to person, oriented to place and oriented to time Exam Limitations: no limitations HEENT normocephalic Head and Scalp: normal to inspection, normocephalic and atraumatic Face and Sinus: normal facial exam Eyes General Eye: normal appearance of both eyes Neck full ROM Chest Chest: symmetrical chest wall rise Resp normal respiratory effort and normal air movement Auscultation: clear to auscultation bilaterally Cardio regular rate, regular rhythm, S1 normal heart sound, S2 normal heart sound, no murmurs, no rub, no gallops and no clicks GI normal to inspection, nondistended, normoactive bowel sounds and non-tender appearance of the vagina normal Bladder / Kidney Exam: no CVA tenderness Manual OB Exam: estimated gestational size appropriate, presentation cephalic, dilated 2, effaced 50, station -2 and other SROM clear Amniotic Fluid: clear amniotic fluid Back/Spine normal ROM Extremity normal to inspection and full ROM Skin no rashes or lesions noted Neuro oriented x3, CN's II-XII intact bilaterally and moves all extremities Sensorium / Orientation: awake, alert and oriented to person Motor Exam: clonus absent Deep Tendon Reflexes: Rt Patellar (L4): 2+ and Lt Patellar (L4): 2+ Labs Labs Labs: Blood Type O POSITIVE Antibody Screen NEGATIVE Hct 36.9 % (37-47) L Hgb 11.9 g/dL (12.0-15.0) L Obstetrics US Syphilis Total Ab Pending GBS negative HIV negative RPR negative Hep C negative HBsAG negative Rubella immune GC/CT negative Assessment & Plan (1) PROM (premature rupture of membranes): (2) 38 weeks gestation of : (3) Anxiety: (4) Depression affecting : (5) History of cocaine abuse: (6) Depression: PLAN: Plan 1) Admit to labor and delivery 2) Routine labs 3) Epidural for pain management 4) Pitocin per protocol 5) collaborative physician
[2022-11-18] MEDS: Acetaminophen 500 MG Tablet PO ×2 (09:58→16:26)
[2022-11-18] MEDS: Ondansetron 4 MG/2 ML Vial IV (14:34)
[2022-11-18 16:39] LABS: Amphetamine Urine VISTA NEGATIVE (<1000 ng/mL); Barbiturate Urine VISTA NEGATIVE (< 200 ng/mL); Benzodiazepine Urine VISTA NEGATIVE (< 200 ng/mL); Cocaine Urine VISTA NEGATIVE (< 300 ng/mL); Ecstacy Urine VISTA NEGATIVE (< 500 ng/mL); Methadone Urine VISTA NEGATIVE (< 300 ng/mL); PCP Urine VISTA NEGATIVE (< 25 ng/mL); THC Urine VISTA NEGATIVE (< 50 ng/mL); Vista UDS pH Range 6
--- NOTE | 2022-11-18 17:46 | EX.PCM.OBRPT ---
Assessment & Plan (1) Vaginal delivery: Maternal Data Information IZZY Calculator Estimated Delivery Date Method Current WG Current Estimate 11/30/22 Manual 38w 2d Vaginal Delivery Maternal Presentation Maternal Presentation: Spontaneous Rupture of Membranes Type of Induction: - (augmentation with pitocin) Operative Information Date of Procedure: 11/18/22 Pre-Operative Diagnosis: PROM, Post-Operative Diagnosis: Surgery / Procedure Performed: Spontaneous Vaginal Delivery Type of Anesthesia: Epidural Estimated Blood Loss: 250ml Time of Delivery: 17:35 Findings Description of Procedure: Progressed to complete with urge to push. Epidural for pain management. of viable female infant over intact perineum. APGARS 8,9 respectively. head delivered with body immediately forthcoming. Placed on maternal abdomen, strong cry. Mouth and nares suctioned for secretions. Pitocin started for active 3rd stage management. Cord doubly clamped and cut by FOB after pulsations ceased, delayed cord clamping. Placenta delivered intact via tamika, 3 vessel cord intact. Perineum inspected and revealed intact perineum. Fundus firm and hemostasis achieved. EBL 250ml . Mom and baby stable. Family bonding well. notified of delivery. Presentation: ROMEL Amniotic Membrane Rupture Type: Spontaneous Amniotic Fluid Description: Clear Placental Delivery Description: Spontaneous Placenta Disposition: [facility] Cord Vessel Description: 3 Vessels Cord Entanglement: Around neck x 2, loose Nuchal Cord Compression: Without compression A Gender: Female (1 minute): 8 (5 minute): 9 Delayed Cord Clamping: Yes Post Vaginal Delivery Medications Given After Delivery: IV Pitocin Episiotomy Description: None Laceration: None Complication Complications: None
[2022-11-18] MEDS: Oxytocin 15 Units/NS 250ml 15 UNITS/250 ML IV.SOLN 83 UNITS IV (18:10)
[2022-11-18] MEDS: Lactated Ringers 1,000 ML 50 ML IV (18:25)
[2022-11-18] MEDS: Ibuprofen 600 MG Tablet PO (23:40)
--- NOTE | 2022-11-19 02:56 | NURSING ---
Report given to Eva BRIZUELA, taking over pt and infant care at this time.
[2022-11-19] MEDS: Acetaminophen 500 MG Tablet 1000 MG PO ×2 (02:57→12:50)
[2022-11-19 04:00] VITALS: BP 99/54; PULSE 68; RESP 14; TEMP 36.6; O2SAT 98
[2022-11-19 05:32] LABS: Hematocrit 30.3 % (37-47); Mean Corpuscular Hgb 29.1 pg (27.0-32.0); Mean Corpuscular Volume 88.1 fL (81-99); Platelet Count 155 K/mm3 (150-450); RBC Distribution Width CV 13.2 % (11.6-14.6); RBC Distribution Width SD 42.5 fl (35.1-43.9); Red Blood Count 3.44 M/mm3 (4.2-5.4); White Blood Count 11.3 K/mm3 (4.4-11.0)
[2022-11-19 07:46] VITALS: BP 119/72; PULSE 76; RESP 16; TEMP 36.3
[2022-11-19] MEDS: Ibuprofen 600 MG Tablet PO (07:51)
--- NOTE | 2022-11-19 08:09 | PCM.PN.OB ---
Subjective Subjective Patient seen at bedside. Feeling good. Denies any pain. Ambulating and voiding without difficulty. Lochia decreasing. Objective Data Objective Data Vital Signs: Vital Signs Temp Pulse Resp BP Pulse Ox O2 Del Method 97.3 F L 76 16 119/72 98 Room Air 11/19/22 07:46 11/19/22 07:46 11/19/22 07:46 11/19/22 07:46 11/19/22 04:00 11/19/22 07:46 Oxygen Delivery Method Room Air Weight: 156 lb 1.396 oz Body Mass Index (BMI) 26.8 Intake & Output: Intake and Output for Last 24 Hours 11/17/22 11/18/22 11/19/22 23:59 23:59 23:59 Intake Total 3311.00 / 3311.00 Output Total 2250 / 2250 300 / 300 Balance 1061.00 / 1061.00 -300 / -300 Lab / Micro Data Result Diagrams: 11/19/22 05:20 Labs: Laboratory Results - last 24 hr 11/18/22 07:00: Urine Opiates Screen NEGATIVE, Urine Methadone Screen NEGATIVE, Ur Barbiturates Screen NEGATIVE, Ur Phencyclidine Scrn NEGATIVE, Ur Amphetamines Screen NEGATIVE, MDMA (Ecstasy) Screen NEGATIVE, U Benzodiazepines Scrn NEGATIVE, Urine Cocaine Screen NEGATIVE, U Cannabinoids Screen NEGATIVE, Ur Drug Screen Comment 11/18/22 08:05: WBC 12.2 H, RBC 4.21, Hgb 11.9 L, Hct 36.9 L, MCV 87.6, MCH 28.3, MCHC 32.2, RDW Std Deviation 41.3, RDW Coeff of Elliott 13.1, Plt Count 221, MPV 11.7, Immature Gran % (Auto) 0.900, Neut % (Auto) 69.0, Lymph % (Auto) 22.4, [place] % (Auto) 6.7, Eos % (Auto) 0.8, Baso % (Auto) 0.2, Absolute Neuts (auto) 8.4 H, Absolute Lymphs (auto) 2.73, Nucleated RBC % 0 11/18/22 08:05: Blood Type O POSITIVE, Antibody Screen NEGATIVE 11/18/22 08:05: Syphilis Total Ab Non-reactive 11/19/22 05:20: WBC 11.3 H, RBC 3.44 L, Hgb 10.0 L, Hct 30.3 L, MCV 88.1, MCH 29.1, MCHC 33.0, RDW Std Deviation 42.5, RDW Coeff of Elliott 13.2, Plt Count 155, MPV 12.0 ROS Eyes Eyes: Denies blurry vision, change in vision or spots in vision ENT HEENT: Denies dizziness or headache(s) Cardiovascular Cardiovascular: Denies abdominal pain, chest pain or dyspnea Respiratory/Chest Respiratory/Chest: Denies cough, dyspnea, shortness of breath at rest or shortness of breath with exertion Gastrointestinal Gastrointestinal: Denies abdominal pain, diarrhea or vomiting Genitourinary Genitourinary: Denies change in urinary stream, difficulty urinating or dysuria Musculoskeletal Musculoskeletal: Reports none Integumentary Integumentary: Denies rash Neurologic Neurologic: Denies dizziness, headache(s), memory loss or weakness Physical Exam Const alert and no apparent distress General Appearance: cooperative and comfortable Exam Limitations: no limitations HEENT normocephalic Eyes General Eye: normal appearance of both eyes Neck full ROM General: normal visual inspection Chest Chest: symmetrical chest wall rise Resp normal respiratory effort and normal air movement Effort and Inspection: symmetric chest movement Auscultation: clear to auscultation bilaterally Cardio regular rate and regular rhythm GI normal to inspection, nondistended, normoactive bowel sounds Back/Spine normal ROM Extremity full ROM and no calf tenderness General Extremity: normal exam except as noted Skin no rashes or lesions noted Neuro CN's II-XII intact bilaterally Psych mental status grossly normal Assessment & Plan (1) Vaginal delivery: (2) History of cocaine abuse: (3) 38 weeks gestation of : (4) Depression affecting : PLAN: Plan PPD 1 Breast and Formula feeding Routine care D/C home with follow up in office Petey Antonioo Prove at 6 weeks PP
--- NOTE | 2022-11-19 08:18 | DCINST_ITS ---
Discharge Instructions Diet Discharge Diet: No restrictions Activity Discharge Activity: Return to Normal Activity, May Shower and May Take a Tub Bath May resume sexual activity in: 4-6 weeks Weight Bearing Status: Weight bearing as tolerated Dressing / Incision Call your doctor if you observe: Fever of 101 or Higher, Inability to urinate, Using more than 1 pad per hour, Shortness of breath, Dizziness, Swelling in the ankles, Chest pain, Calf discomfort and Uncontrolled pain Follow Up Care Please Follow Up With: Ava Gardner CNM When: Within 10 days Test Results: Test results from this visit will be discussed in further detail at your follow- up appointment, if applicable. Discharge Plan Admission Admit Date/Time: 11/18/22 07:55 Primary Reason for Your Visit: Labor and Delivery Attending Provider: Kenzie Ferreira Primary Care Provider: Scarlet Lemus Discharge Orders/Prescriptions Prescriptions: Discontinued ondansetron 4 mg tablet,disintegrating 4 mg PO Q8H PRN (Reason: nausea and vomiting) Qty: 20 0RF Referrals / Follow Up: Scarlet Lemus MD [Primary Care Provider] - Disposition Disposition (needs filled in before D/C Order can be placed): Home, Self Care
--- NOTE | 2022-11-19 12:03 | CASEMGMT ---
Addendum entered by Mary Garcia 11/19/22 12:17: Social Work Social Work Assessment Labor and Delivery Unit Patient Address: [facility], [place], [place] Phone number: [phone] Date of Referral: 11/19/2022 Date of Intervention: 11/19/2022 Time of Intervention: 11:15 Reason for Referral: Hx of depression, anxiety and substance abuse (2019) History obtained from: medical records and mother of baby (MOB) and FOB Household composition: MOB Florence and FOB Rezno Barton, little brother Carolyn 18 months, 10 y.o sister Sandy (50% of time) Patient's parent/guardian status: MOB and FOB have been together for 3 years, FOB is involved and plans to take time off work to help Medical History: Mother has 4 prior pregnancies with 2 prior babies. MOB has received appropriate care. Baby girl born 11/18 6.79 lbs and 8/9 apgars. Baby named Tresa. Educational Status: MOB high school graduate and FOB non-graduate but denies concerns Financial Status: Father does excavating and has CDL. MOB will stay home. Denies financial concerns. Infant Supplies: MOB reports having crib and bassinet. Car seat present. All supplies available per MOB Childcare/Caregiver(s): MOB, maternal aunt, maternal grandmother and paternal grandmother Transportation: No concerns Programs/Agencies Involved: Receives medicaid and is interested in WIC and Help me grow referral/ Children Services/Legal Issues: None reported Behavioral Health Issues: MOB reports hx of depressiona and anxiety. Denies PPD with previous children but does report anxiety. MOB denies hx of serious mental illness besides depression and anxiety in family. Does report her sister by suicide during her last and her other sister has attempted suicide. Pt denies SI hx for self. MOB has history of substance abuse in 2019 (cocaine and marijuana) but denies any recent use and has negative tox screens. Family/Social Stressors: Denies family stressors besides sister's medical concerns Support Systems: maternal and paternal grandmothers and maternal aunt are supportive Depression: Provided education and resources given, parents receptive Shaken Baby: Provided education, parents receptive Safe Sleeping: Provided education, parents receptive and demonstrated knowledge of practice PLAN: Referral placed for Help Me Grow and WIC. No other services requested or indicated. Mary Garcia [employer], BAR HOST/HOSTESS Original Note: Social Work Social Work Assessment Labor and Delivery Unit Patient Address: Phone number: Date of Referral: 11/19/2022 Date of Intervention: 11/19/2022 Time of Intervention: 11:15 Reason for Referral: Hx of depression, anxiety and substance abuse (2019) History obtained from: medical records and mother of baby (MOB) and FOB Household composition: MOB Florence and FOB Renzo Barton, little brother Carolyn 18 months, 10 y.o sister Sandy (50% of time) Patient's parent/guardian status: MOB and FOB have been together for 3 years, FOB is involved and plans to take time off work to help Medical History: Mother has 4 prior pregnancies with 2 prior babies. MOB has received appropriate care. Baby girl born 11/18 6.79 lbs and 8/9 apgars. Baby named Tresa. Educational Status: MOB high school graduate and FOB non-graduate but denies concerns Financial Status: Father does excavating and has CDL. MOB will stay home. Denies financial concerns. Supplies: MOB reports having crib and bassinet. Car seat present. All supplies available per MOB Childcare/Caregiver(s): MOB, maternal aunt, maternal grandmother and paternal grandmother Transportation: No concerns Programs/Agencies Involved: Receives medicaid and is interested in WIC and Help me grow referral/ Children Services/Legal Issues: Behavioral Health Issues: Mental Health History: Substance Use History: Family History: Drug Screens: if I do an [place] depression scale I will put this info in the BH section, or if there is a PHQ9 that was addressed Family/Social Stressors: Support Systems: Depression/Shaken Baby/Safe Sleeping important topics so have this so we can indicate education provided, responses as indicated, etc. ASSESSMENT: Safe Plan of Care for related to substance use: only need this if there is a concern about substance use and/or in utero exposure to substances. PLAN: No other services requested or indicated.
[2022-11-19 12:45] VITALS: BP 116/78; PULSE 86; RESP 16; TEMP 37
== END 2022-11-19 18:40 | disposition home or self-care (01) | DRG 560 ==
LOC: WP 07:59 → WPOUT 11-19 12:55
PROVIDERS: Admitting Provider Advanced Practice Midwife; PCP Internal Medicine; Referring Provider Advanced Practice Midwife; Visit Provider Advanced Practice Midwife
DX: O42.92 Full-term premature rupture of membranes, unspecified as to length of time between rupture and onset of labor (principal); Z37.0 Single live birth; O99.344 Other mental disorders complicating childbirth; F17.210 Nicotine dependence, cigarettes, uncomplicated; F41.9 Anxiety disorder, unspecified; F32.A Depression, unspecified; O69.81X0 Labor and delivery complicated by cord around neck, without compression, not applicable or unspecified; O99.334 Smoking (tobacco) complicating childbirth; Z3A.38 38 weeks gestation of pregnancy; Z87.59 Personal history of other complications of pregnancy, childbirth and the puerperium; Z87.898 Personal history of other specified conditions; Z84.89 Family history of other specified conditions
CPT/HCPCS: 59025; 59050; 80307; 81002; 84112; 85025; 85027; 86780; 86850; 86900; 86901; 87086; 87088; 99221; J7120; G0378; J2405

== ENCOUNTER 2023-06-22 10:59 | Outpatient (REF) | payer SELFPAY ==
[2023-06-22 11:00] VITALS: BP 118/71; PULSE 84; RESP 16; TEMP 36.4; O2SAT 97; BMI 26.5
--- NOTE | 2023-06-22 11:20 | EKG12_ITS ---
Test Reason : MHC Blood Pressure : / mmHG Vent. Rate : 062 BPM Atrial Rate : 062 BPM P-R Int : 152 ms QRS Dur : 080 ms QT Int : 372 ms P-R-T Axes : 085 093 067 degrees QTc Int : 377 ms Normal sinus rhythm Rightward axis Borderline ECG Confirmed by ZOFIA YEUNG, ANNA ([id number]), state editor JOHN PATEL ([id number]) on 06/24/2023 9:46:59 AM Referred By: Felipe Leonardo Confirmed By:ANNA ARMIJO MD
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
[2023-06-22 11:52] LABS: Absolute Lymphocyte Count 1.88 X10^3/uL (0.83-4.51); Absolute Neutrophil Count 7.8 X10^3/uL (2.0-7.7); Basophil# 0.03 X10^3/uL; Basophil% 0.3 % (0-1); Eosinophil# 0.09 X10^3/uL; Eosinophils% 0.9 % (0-5); Hematocrit 43.6 % (37-47); Hemoglobin 13.8 g/dL (12.0-15.0); Lymphocyte # 1.88 X10^3/ul (0.83-4.51); Lymphocyte % 17.9 % (19-41); Mean Corp Hgb Conc 31.7 g/dL (32-36); Mean Corpuscular Hgb 27.1 pg (27.0-32.0); Mean Corpuscular Volume 85.5 fL (81-99); Mean Platelet Vol. 11.8 fl (6.2-12.0); Monocyte# 0.71 X10^3/uL; Monocyte% 6.8 % (0-10); NRBC Flagged by Analyzer 0 % (0-5); Neutrophil # 7.76 X10^3/uL (2.7-7.7); Neutrophil % 73.8 % (47-70); Platelet Count 208 K/mm3 (150-450); RBC Distribution Width SD 43.7 fl (35.1-43.9); White Blood Count 10.5 K/mm3 (4.4-11.0)
[2023-06-22 12:14] LABS: Anion Gap 3 (5-15); BUN 12 mg/dL (7-18); BUN/Creat Ratio 15.1 RATIO (10-20); Calcium,Total 9.2 mg/dL (8.5-10.1); Chloride 110 mmol/L (98-107); EST Glomerular Filtration Rate 91 mL/min (>60); Est Glom Filt Rate - Afr Amer 110 mL/min (>60); Estimated Creatinine Clearance 85.83 ml/min; Glucose 97 mg/dL (74-106); Potassium 3.9 mmol/L (3.5-5.1); Sodium Level 141 mmol/L (136-145)
[2023-06-22 12:16] LABS: Internal QC Validated? YES +Cl - CLEAR BKGD; Pregnancy, Serum, hCG Quali. NEGATIVE Negative
[2023-06-22 12:18] LABS: Acetaminophen (Tylenol) Level < 2.0 ug/mL (10.0-30.0); Alcohol, Blood (Medical)-Serum < 3.0 mg/dL; Salicylate 3.7 mg/dL (2.8-20.0)
[2023-06-22 12:51] LABS: Amphetamine Urine VISTA POSITIVE (<1000 ng/mL); Barbiturate Urine VISTA NEGATIVE (< 200 ng/mL); Benzodiazepine Urine VISTA NEGATIVE (< 200 ng/mL); Cocaine Urine VISTA POSITIVE (< 300 ng/mL); Ecstacy Urine VISTA NEGATIVE (< 500 ng/mL); Methadone Urine VISTA NEGATIVE (< 300 ng/mL); PCP Urine VISTA NEGATIVE (< 25 ng/mL); THC Urine VISTA POSITIVE (< 50 ng/mL); Vista UDS pH Range 6
[2023-06-22 13:18] VITALS: BP 120/68; PULSE 83; RESP 16; O2SAT 99
== END 2023-06-22 13:19 ==
LOC: ED 10:59
PROVIDERS: Nurse Practitioner; PCP Internal Medicine; Referring Provider Student in an Organized Health Care Education/Training Program; Visit Provider Student in an Organized Health Care Education/Training Program
DX: F32.A Depression, unspecified (principal); F14.99 Cocaine use, unspecified with unspecified cocaine-induced disorder; T39.1X1A Poisoning by 4-Aminophenol derivatives, accidental (unintentional), initial encounter; R45.851 Suicidal ideations; F12.90 Cannabis use, unspecified, uncomplicated; F11.90 Opioid use, unspecified, uncomplicated; F17.210 Nicotine dependence, cigarettes, uncomplicated; Z65.3 Problems related to other legal circumstances; Z91.51 Personal history of suicidal behavior
CPT/HCPCS: 36415; 80048; 80307; 80329; 82077; 84703; 85025; 93005; 99285; A4216; G0480

== ENCOUNTER 2023-10-19 04:56 | Emergency (ER) | payer MEDICAID, SELFPAY ==
[2023-10-19 04:57] VITALS: BP 146/81; PULSE 55; RESP 19; TEMP 36.1; O2SAT 99; BMI 24.5
[2023-10-19 05:00] VITALS: PULSE 105; RESP 16; TEMP 37.2; O2SAT 100
[2023-10-19] MEDS: 0.9% Normal Saline (1000mL) 1,000 ML 999 ML IV (05:32)
[2023-10-19] MEDS: Ondansetron 4 MG/2 ML Vial IV (05:32)
[2023-10-19] MEDS: Morphine 4 MG/ML Syringe IV (05:32)
[2023-10-19 05:49] LABS: Absolute Lymphocyte Count 2.38 X10^3/uL (0.83-4.51); Absolute Neutrophil Count 9.2 X10^3/uL (2.0-7.7); Basophil# 0.02 X10^3/uL; Basophil% 0.2 % (0-1); Eosinophil# 0.12 X10^3/uL; Hemoglobin 12.8 g/dL (12.0-15.0); Lymphocyte # 2.38 X10^3/ul (0.83-4.51); Lymphocyte % 19.2 % (19-41); Mean Corp Hgb Conc 33.7 g/dL (32-36); Mean Corpuscular Hgb 28.7 pg (27.0-32.0); Mean Corpuscular Volume 85.2 fL (81-99); Mean Platelet Vol. 10.8 fl (6.2-12.0); Monocyte# 0.57 X10^3/uL; Monocyte% 4.6 % (0-10); NRBC Flagged by Analyzer 0 % (0-5); Neutrophil # 9.22 X10^3/uL (2.7-7.7); Neutrophil % 74.5 % (47-70); Platelet Count 350 K/mm3 (150-450); RBC Distribution Width CV 13.5 % (11.6-14.6); Red Blood Count 4.46 M/mm3 (4.2-5.4); White Blood Count 12.4 K/mm3 (4.4-11.0)
--- NOTE | 2023-10-19 05:57 | EX.ED.DYSGE1 ---
HPI History of Present Illness Chief Complaint: Nausea/Vomiting/Diarrhea Informant: patient Narrative Narrative: Patient is a 28-year-old female with past medical history of reported pancreatitis. She states that she felt off this evening and then began with generalized abdominal discomfort and bouts of nausea vomiting and diarrhea. She states that she has had multiple events of each since its onset at midnight. She reports subjective fevers and chills. She does report known sick contact with influenza recently. She denies any activities such as alcohol use which could have led to recurrent pancreatitis. She states that she cannot get her symptoms under control at home and secondary to this comes in for evaluation [facility] Medical History 38 weeks gestation of Anxiety Depression Depression affecting Family history of malignant hyperthermia Hiatal hernia History of cocaine abuse Ovarian cyst Pancreatitis hemorrhage PROM (premature rupture of membranes) Tonsillectomy planned Vaginal delivery Allergy/AdvReac Type Severity Reaction Status Date / Time fructose AdvReac Mild Upset Verified 11/18/22 07:06 Stomach Family History Grandmother Malignant hyperthermia Surgical History History of adenoidectomy History of appendectomy Social History household members: spouse and children Smoking Status: Current every day smoker tobacco type: cigarettes substance use type: does not use ROS ROS ED Constitutional Constitutional ED: Denies chills or fever(s) Eyes Eyes: Denies change in vision ENT ENT ED: Denies sore throat Cardiovascular Cardiovascular: Denies chest pain Respiratory/Chest Respiratory/Chest: Denies cough or dyspnea Gastrointestinal Gastrointestinal: Reports abdominal pain, diarrhea, nausea and vomiting Genitourinary Genitourinary ED: Denies dysuria Musculoskeletal Musculoskeletal: Reports myalgias Integumentary Denies rash Neurologic Neurologic: Reports headache(s) Hematologic/Lymphatic Hematologic/Lymphatic: Denies easy bleeding or easy bruising EXAM Physical Exam Const Vital Signs: 10/19/23 04:57 10/19/23 05:00 10/19/23 06:45 Temperature 96.9 F L 98.9 F Temperature Source Temporal Oral Pulse Rate 55 L 105 H 86 Respiratory Rate 19 H 16 16 Blood Pressure 146/81 H Blood Pressure Mean 102 Pulse Ox 99 100 97 Oxygen Delivery Method Room Air Room Air Room Air 10/19/23 07:17 Temperature Temperature Source Pulse Rate 77 Respiratory Rate 16 Blood Pressure 139/85 H Blood Pressure Mean 103 Pulse Ox 96 Oxygen Delivery Method Room Air Positive well nourished and well developed General Appearance ED: well developed; Negative for pallor HEENT HEENT Narrative: Mucous membranes are slightly dry and tacky No tongue or lip swelling no oral lesions no airway edema or compromise No signs of infection noted in the posterior pharynx Eyes PERRL and EOMs intact bilaterally General Eye ED: Negative for scleral icterus Neck supple Neck Narrative: No nuchal rigidity or meningeal signs noted Resp normal respiratory effort and clear to auscultation bilaterally Cardio regular rate and regular rhythm Rate: other Other Details: Radial and carotid pulses equal and symmetric GI non-tender and non-distended GI Narrative: Abdomen is soft and nondistended with hyperactive bowel sounds. There is mild diffuse pain on palpation without voluntary guarding or rigidity or pulsatile mass Auscultation: hyperactive bowel sounds Palpation: soft Extremity normal to inspection Neuro oriented x3, CN's II-XII intact bilaterally and no sensory deficits noted Sensorium / Orientation: alert Motor Exam: strength 5/5 throughout Psych Psych Narrative: Patient has a nervous/anxious affect Skin no rashes or lesions noted Skin Narrative: Skin turgor slightly increased General Skin Exam: Negative for jaundice or pallor MDM MDM MDM Narrative Medical decision making narrative: Patient arrived to the ER afebrile but was complaining of significant bouts of nausea vomiting diarrhea as well as generalized body discomfort and abdominal pain. With her reported exposure to someone with influenza there is high concern for viral illness and therefore viral swab was obtained. However with concern for potential pancreatitis or acute kidney injury or electrolyte abnormality basic blood work was ordered. test is negative going against a cause of her symptoms. Lipase is normal going against acute pancreatitis. Lab work shows no clinically significant arrangement to her electrolytes or creatinine. Patient's ALT and alkaline phosphatase are slightly elevated and her white count is also slightly bumped at 12.4. This is most likely stress response. After IV hydration and Zofran patient was still complaining of pain and nausea and therefore a CT scan was added. CT scan is still pending and therefore patient be signed out to the day physician Dr. Wood pending his results. I do feel that based on her physical exam and workup that if CT scan does not show any signs of acute obstruction or infection she is otherwise safe for discharge History & Record Review Discussion w/independent historian: Patient Lab Data Attestation: I reviewed the patient's lab results. Labs: Laboratory Results - last 24 hr 10/19/23 05:30 WBC 12.4 H RBC 4.46 Hgb 12.8 Hct 38.0 MCV 85.2 MCH 28.7 MCHC 33.7 RDW Std Deviation 42.0 RDW Coeff of Elliott 13.5 Plt Count 350 MPV 10.8 Immature Gran % (Auto) 0.500 Neut % (Auto) 74.5 H Lymph % (Auto) 19.2 Cameron % (Auto) 4.6 Eos % (Auto) 1.0 Baso % (Auto) 0.2 Absolute Neuts (auto) 9.2 H Absolute Lymphs (auto) 2.38 Nucleated RBC % 0 Sodium 140 Potassium 4.1 Chloride 107 Carbon Dioxide 25.0 Anion Gap 8 BUN 9 Creatinine 0.74 Estim Creat Clear Calc 100.30 Est GFR (MDRD) Af Amer 120 Est GFR (MDRD) Non-Af 99 BUN/Creatinine Ratio 12.2 Glucose 142 H Calcium 9.3 Total Bilirubin 0.40 Direct Bilirubin 0.14 AST 17 ALT 58 H Alkaline Phosphatase 124 H Total Protein 7.2 Albumin 3.6 Globulin 3.6 Lipase 19 Serum , Qual NEGATIVE Discharge Plan Triage Chief Complaint: Nausea/Vomiting/Diarrhea ED Provider: Berny Baez Dx/Rx/DC Orders Primary Care Provider: Scarlet Lemus Referrals: Scarlet Lemus MD [Primary Care Provider] -
[2023-10-19 06:06] LABS: AST(SGOT) 17 U/L (15-37); Alanine Aminotransfer ALT/SGPT 58 U/L (13-56); Albumin, Serum 3.6 g/dL (3.2-5.0); Alkaline Phosphatase 124 U/L (45-117); Anion Gap 8 (5-15); BUN 9 mg/dL (7-18); BUN/Creat Ratio 12.2 RATIO (10-20); Bilirubin, Direct 0.14 mg/dL (0.00-0.30); Calcium,Total 9.3 mg/dL (8.5-10.1); Chloride 107 mmol/L (98-107); Creatinine, Serum 0.74 mg/dL (0.55-1.02); EST Glomerular Filtration Rate 99 mL/min (>60); Est Glom Filt Rate - Afr Amer 120 mL/min (>60); Globulin 3.6 g/dL (2.2-4.2); Glucose 142 mg/dL (74-106); Internal QC Validated? YES +Cl - CLEAR BKGD; Lipase 19 U/L (13-75); Potassium 4.1 mmol/L (3.5-5.1); Pregnancy, Serum, hCG Quali. NEGATIVE Negative; Protein, Total 7.2 g/dL (6.4-8.2); Sodium Level 140 mmol/L (136-145)
[2023-10-19 06:45] VITALS: PULSE 86; RESP 16; O2SAT 97
--- NOTE | 2023-10-19 06:57 | CT_ITS ---
STUDY: CT ABDOMEN AND PELVIS WITH CONTRAST REASON FOR EXAM: Female, 28 years old. Abdominal pain, nausea, vomiting and diarrhea RADIATION DOSAGE (If Supplied By Facility): CTDIvol = ( 10.06 ) mGy, DLP = ( 348.18 ) mGycm TECHNIQUE: 100 CC ISOVUE 300 was administered. Transaxial images were obtained from the dome of the diaphragm to the symphysis pubis. Multiplanar coronal and sagittal images were reformatted. Individualized Dose Optimization Techniques Were Used For This CT. COMPARISON: No relevant prior comparison study available FINDINGS: The visualized lung bases are unremarkable. The visualized portions of the heart are within normal limits. Borderline hepatomegaly. No focal lesion is seen in the liver. Normal gallbladder and extrahepatic biliary system. Normal spleen. Normal pancreas. Normal bilateral adrenal glands. Normal visualized stomach. Normal small intestine. Diffuse thickening of the colon extending from the cecum to the sigmoid colon consistent with colitis. No evidence of acute diverticulitis. There are surgical clips in the region of the appendix consistent with a prior appendectomy. Normal abdominal aorta. No retroperitoneal adenopathy. Normal right kidney. Normal left kidney. Normal urinary bladder. No pelvic mass. No free fluid. Normal abdominal wall. Normal osseous structures. CT/Abdomen/Pelvis W IV Cont ONLY IMPRESSION: Diffuse thickening of the colon consistent with colitis. Electronically Signed: Beau Dahl MD at 8:58 EDT ,
[2023-10-19] MEDS: DiphenhydrAMINE 50 MG/ML Syringe 25 MG IV (07:10)
[2023-10-19] MEDS: Haloperidol Lactate 5 MG/ML Vial IV (07:10)
[2023-10-19] MEDS: Metoclopramide 10 MG/2 ML Vial IV (07:11)
[2023-10-19] MEDS: 0.9% Normal Saline (500mL Bag) 500 ML 999 ML IV (07:12)
[2023-10-19 07:17] VITALS: BP 139/85; PULSE 77; RESP 16; O2SAT 96
[2023-10-19 08:28] VITALS: BP 101/65; RESP 16; O2SAT 97
[2023-10-19 10:05] VITALS: BP 95/68; PULSE 93; RESP 16; TEMP 36.8; O2SAT 97
== END 2023-10-19 10:12 | disposition home or self-care (01) ==
PROVIDERS: Emergency Provider Emergency Medicine; PCP Internal Medicine; Visit Provider Emergency Medicine
DX: K63.89 Other specified diseases of intestine (principal); F17.210 Nicotine dependence, cigarettes, uncomplicated; Z20.828 Contact with and (suspected) exposure to other viral communicable diseases
CPT/HCPCS: 74177; 80048; 80076; 83690; 84703; 85025; 87631; 96361; 96374; 96375; 99283; J7030; J7040; Q9967; A4216; J2405

== ENCOUNTER 2023-10-27 14:01 | Emergency (ER) | payer MEDICAID, SELFPAY ==
[2023-10-27 14:01] VITALS: BP 118/85; PULSE 95; RESP 16; TEMP 36.2; O2SAT 100; BMI 28.3
--- NOTE | 2023-10-27 14:09 | RAD_ITS ---
INDICATION: pain EXAMINATION/TECHNIQUE: X-RAY - RIGHT XR Foot Min 3 Views 3 VIEWS COMPARISON: No relevant prior comparison study available FINDINGS: SOFT TISSUES: No soft tissue swelling or gas. No radiopaque foreign body. BONES/JOINTS: Mild irregularity of the dorsal aspect of the navicular bone close to the talonavicular joint likely due to degenerative spur. No demonstrated acute fracture. Normal alignment. Preservation of the joint space.. No sclerotic or destructive changes observed. RAD/Foot min 3 Views IMPRESSION: No evidence of acute osseous changes Electronically Signed: Beau Dahl MD at 14:58 EDT ,
--- NOTE | 2023-10-27 14:09 | RAD_ITS ---
INDICATION: pain EXAMINATION/TECHNIQUE: X-RAY - RIGHT XR Ankle Min 3 Views 3 VIEWS COMPARISON: No relevant prior comparison study available FINDINGS: SOFT TISSUES: No soft tissue swelling or gas. No radiopaque foreign body. BONES/JOINTS: Mild irregularity of the dorsal aspect of the navicular bone is seen. The margins are not sharp. Acute fracture is doubtful. Normal alignment. Preservation of the joint space.. No sclerotic or destructive changes observed. RAD/Ankle min 3 Views IMPRESSION: Bony density on the dorsal aspect of the navicular bone. Acute fracture is doubtful. Electronically Signed: Beau Dahl MD at 15:03 EDT ,
--- NOTE | 2023-10-27 14:11 | EDS_ITS ---
HPI <HOLLAND Cruz - Last Filed: 10/27/23 15:02> History of Present Illness Chief Complaint: Lower Extremity Injury Narrative Narrative: 28-year-old female states last night she tripped on the stairs and injured her right ankle. She was able to walk but after waking up this morning it is more painful and swollen. She has no weakness or paresthesias. She took ibuprofen prior to arrival. PFSH <HOLLAND Cruz - Last Filed: 10/27/23 15:02> PFSH Medical History 38 weeks gestation of Anxiety Depression Depression affecting Family history of malignant hyperthermia Hiatal hernia History of cocaine abuse Ovarian cyst Pancreatitis hemorrhage PROM (premature rupture of membranes) Tonsillectomy planned Vaginal delivery Home Medications escitalopram oxalate 10 mg tablet (Lexapro) 10 mg PO DAILY 10/27/23 [History L ast Taken Unknown] Allergy/AdvReac Type Severity Reaction Status Date / Time fructose AdvReac Mild Upset Verified 10/27/23 14:03 Stomach Family History Grandmother Malignant hyperthermia Surgical History History of adenoidectomy History of appendectomy Social History household members: spouse and children Smoking Status: Current every day smoker tobacco type: cigarettes substance use type: does not use ROS <HOLLAND Cruz - Last Filed: 10/27/23 15:02> ROS ED ROS Narrative Neuro: Negative for motor/sensory dysfunction. Skin: Negative for wound. Musc: Positive for right ankle pain, swelling. EXAM <HOLLAND Cruz - Last Filed: 10/27/23 15:02> Physical Exam Narrative Exam Narrative: CONST: Patient sitting in no acute distress. SKIN: Color normal, no rash, warm, dry, intact. EXTREMITIES: Mild swelling right ankle, tender medial and lateral ankle and proximal third fourth fifth metatarsals. No deformity or crepitus, Achilles intact, normal strength and sensation, 2+ DP pulses. No proximal fibula tenderness. NEURO: Alert and answering questions appropriately. PSYCH: Normal affect. Const Vital Signs: 10/27/23 14:01 Temperature 97.2 F L Temperature Source Temporal Pulse Rate 95 Respiratory Rate 16 Blood Pressure 118/85 H Blood Pressure Mean 96 Pulse Ox 100 Oxygen Delivery Method Room Air <Dr. Tien Corona MD - Last Filed: 10/27/23 15:01> Physical Exam Const Vital Signs: 10/27/23 14:01 Temperature 97.2 F L Temperature Source Temporal Pulse Rate 95 Respiratory Rate 16 Blood Pressure 118/85 H Blood Pressure Mean 96 Pulse Ox 100 Oxygen Delivery Method Room Air MDM <HOLLAND Cruz - Last Filed: 10/27/23 15:02> [facility] Radiography Diagnostic Testing: Clinical Impression(s) from Imaging Studies Foot X-Ray 10/27/23 14:09 IMPRESSION: No evidence of acute osseous changes Electronically Signed: Beau Dahl MD at 14:58 EDT Reading Location ID and State: [facility] / [place] Tel , Service support , <Dr. Tien Corona MD - Last Filed: 10/27/23 15:01> [facility] MDM Narrative Medical decision making narrative: I have personally performed a face to face assessment of the patient and have reviewed the BRITT Note. I performed a substantive portion of the visit including all aspects of the following. My arambula findings include: History is 27-year-old female was walking down steps tripped injured her right lateral ankle and proximal foot. No prior history or surgery to that extremity. No knee or hip pain. No other injuries. Exam is [failure female no acute distress vital signs stable afebrile. HEENT exam unremarkable atraumatic. Neck nontender. Back and spine nontender. Lungs clear. Heart regular rate and rhythm no murmur. Rate about 90. Chest wall and ribs nontender. Abdomen soft nontender. Pelvic girdle intact. Both upper extremities are unremarkable. Normal range of motion. 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 Nontender. Left lower extremity nontender. Right hip and knee are nontender right lateral ankle is mildly tender. No deformity. Medial malleolus nontender. Normal DP pulse. Achilles tendon intact. Also tenderness along the lateral right foot. No gross bony deformity. Able to wiggle her toes. Normal touch sensation. Normal cap refill.] Medical Decision Making [x-ray right ankle x 3 and right foot x 3 show no acute fracture or dislocation. Treated as a sprain. Ice and elevate. Motrin Tylenol. Crutches and Aircast. Increase activity as tolerated. Return if worse.] Other additions or changes: [None] Radiography Diagnostic Testing: Clinical Impression(s) from Imaging Studies Foot X-Ray 10/27/23 14:09 IMPRESSION: No evidence of acute osseous changes Electronically Signed: Beau Dahl MD at 14:58 EDT , Right foot x-ray, 3 views, interpreted by myself shows no acute fracture or dislocation. Mild soft tissue swelling. Right ankle x-ray, 3 views, interpreted myself shows no acute fracture or dislocation. Discharge Plan Triage Chief Complaint: Lower Extremity Injury ED Midlevel Provider: Stephanie Guardado ED Provider: Tien Corona Dx/Rx/DC Orders Clinical Impression: Right ankle sprain Instructions: ED Ankle Sprain (Adult) Prescriptions: No Action escitalopram oxalate [Lexapro] 10 mg tablet 10 mg PO DAILY Primary Care Provider: Scarlet Lemus Referrals: Scarlet Lemus MD [Primary Care Provider] - Activity Restrictions/Additional Instructions: Rest, ice, elevate to decrease swelling. Alternate Tylenol and Motrin every 3 hours as needed for pain. Use the crutches and Aircast until you can tolerate putting weight on it again. Disposition Disposition: Home, Self Care
[2023-10-27] MEDS: Acetaminophen 500 MG Tablet 1000 MG PO (14:16)
== END 2023-10-27 15:12 | disposition home or self-care (01) ==
PROVIDERS: Emergency Provider Emergency Medicine; PCP Internal Medicine; Visit Provider Emergency Medicine
DX: S93.401A Sprain of unspecified ligament of right ankle, initial encounter (principal); F17.210 Nicotine dependence, cigarettes, uncomplicated; Z79.899 Other long term (current) drug therapy; X58.XXXA Exposure to other specified factors, initial encounter
CPT/HCPCS: 73610; 73630; 99284

== ENCOUNTER 2024-01-19 16:54 | Emergency (ER) | payer SELFPAY ==
[2024-01-19 16:56] VITALS: BP 142/88; PULSE 85; RESP 16; TEMP 36.4; O2SAT 100; BMI 22.3
[2024-01-19 17:40] LABS: Absolute Lymphocyte Count 1.59 X10^3/uL (0.83-4.51); Absolute Neutrophil Count 14.1 X10^3/uL (2.0-7.7); Basophil# 0.02 X10^3/uL; Basophil% 0.1 % (0-1); Hematocrit 43.6 % (37-47); Hemoglobin 14.5 g/dL (12.0-15.0); Lymphocyte # 1.59 X10^3/ul (0.83-4.51); Lymphocyte % 9.8 % (19-41); Mean Corp Hgb Conc 33.3 g/dL (32-36); Mean Corpuscular Hgb 28.1 pg (27.0-32.0); Mean Corpuscular Volume 84.5 fL (81-99); Mean Platelet Vol. 10.9 fl (6.2-12.0); Monocyte# 0.38 X10^3/uL; Monocyte% 2.3 % (0-10); NRBC Flagged by Analyzer 0 % (0-5); Neutrophil # 14.13 X10^3/uL (2.7-7.7); Neutrophil % 87.4 % (47-70); Platelet Count 377 K/mm3 (150-450); RBC Distribution Width CV 13.8 % (11.6-14.6); RBC Distribution Width SD 42.6 fl (35.1-43.9); Red Blood Count 5.16 M/mm3 (4.2-5.4); White Blood Count 16.2 K/mm3 (4.4-11.0)
[2024-01-19] MEDS: Ketorolac 15 MG/ML Vial IV (17:50)
[2024-01-19] MEDS: Metoclopramide 10 MG/2 ML Vial IV (17:50)
[2024-01-19] MEDS: 0.9% Normal Saline (1000mL) 1,000 ML 999 ML IV (17:50)
[2024-01-19 17:53] LABS: AST(SGOT) 17 U/L (15-37); Alanine Aminotransfer ALT/SGPT 36 U/L (13-56); Albumin, Serum 4.2 g/dL (3.2-5.0); Alkaline Phosphatase 142 U/L (45-117); Anion Gap 9 (5-15); BUN 13 mg/dL (7-18); BUN/Creat Ratio 16.1 RATIO (10-20); Calcium,Total 9.6 mg/dL (8.5-10.1); Chloride 102 mmol/L (98-107); Creatinine, Serum 0.81 mg/dL (0.55-1.02); EST Glomerular Filtration Rate 89 mL/min (>60); Est Glom Filt Rate - Afr Amer 107 mL/min (>60); Estimated Creatinine Clearance 88.49 ml/min; Globulin 4.1 g/dL (2.2-4.2); Glucose 105 mg/dL (74-106); Lipase 13 U/L (13-75); Potassium 3.6 mmol/L (3.5-5.1); Protein, Total 8.3 g/dL (6.4-8.2); Sodium Level 138 mmol/L (136-145)
--- NOTE | 2024-01-19 17:54 | EDS_ITS ---
HPI <PETERSON Loredo - Last Filed: 01/19/24 18:48> History of Present Illness Chief Complaint: Nausea/Vomiting Narrative Narrative: Patient is a 28-year-old Fe with history of pancreatitis, chronic pain, anxiety, depression who presents to the emergency department with complaints of nausea, vomiting, abdominal pain has been ongoing for the last 24 hours. Patient dates she recently started her Creon, she does have history of colitis, she states he is unable to keep any fluids down, she takes Zofran that she is prescribed however this is not helping. Patient denies any concern for . Denies any concern for any STD. PFSH <PETERSON Loredo - Last Filed: 01/19/24 18:48> PFSH Medical History 38 weeks gestation of Anxiety Depression Depression affecting Family history of malignant hyperthermia Hiatal hernia History of cocaine abuse Ovarian cyst Pancreatitis hemorrhage PROM (premature rupture of membranes) Tonsillectomy planned Vaginal delivery Home Medications ?Medication ?Instructions ?Recorded ?Last Taken ?Type escitalopram oxalate 10 mg tablet 10 mg PO DAILY 10/27/23 Unknown History (Lexapro) metoclopramide HCl 10 mg tablet 10 mg PO Q6H PRN nausea and 01/19/24 Unknown Rx (Reglan) vomiting #14 tabs Allergy/AdvReac Type Severity Reaction Status Date / Time fructose AdvReac Mild Upset Verified 01/19/24 16:59 Stomach Family History Grandmother Malignant hyperthermia Surgical History History of adenoidectomy History of appendectomy Social History household members: spouse and children Smoking Status: Current every day smoker tobacco type: cigarettes substance use type: does not use ROS <PETERSON Loredo - Last Filed: 01/19/24 18:48> ROS ED ROS Narrative Constitutional: Negative for fever, chills, weight loss, weakness Eyes: Negative for vision loss, vision change, double vision ENT: Negative for any sore throat, ear pain, congestion Cardiovascular: Negative for any chest pain, tightness, palpitations Respiratory: Negative for any cough, sputum production, hemoptysis, dyspnea, dyspnea on exertion, orthopnea Gastrointestinal: Negative for any diarrhea, constipation, blood in stool, blood in vomit. Positive for abdominal pain, nausea and vomiting : Negative for any urinary frequency, dysuria, retention, blood in urine Muscle skeletal: Negative for any neck pain, back pain Neurological: Negative for any headache, syncope, dizziness Skin: Negative for any rashes, itching, abrasions, lacerations Psychiatric: Negative for any depression, anxiety, stress, suicidal ideation, homicidal ideation Hematologic: Negative for any excessive bruising, easy bleeding EXAM <MARY BETH LoredoC - Last Filed: 01/19/24 18:48> Physical Exam Narrative Exam Narrative: Vital signs reviewed. HEET: Head normocephalic atraumatic, TMs clear bilaterally. Posterior pharynx is clear, moist mucous membranes. Nares clear bilaterally. Neck: Supple with no lymphadenopathy or tenderness. No signs of meningismus. Cardiac: Regular rate and rhythm no murmurs gallops or rubs, equal peripheral pulses bilaterally. Respiratory: Lungs clear to auscultation bilaterally. No chest tenderness. Abdomen: Soft, nondistended. No abdominal bruit or pulsatile masses. No hepatosplenomegaly. Patient tenderness out of proportion just touching the right flank area, right upper abdomen. Active bowel sounds in all quadrants. Extremities: No peripheral edema, no signs of gross trauma or deformity. Active full range of motion of all extremities. Neuro: Cranial nerves II through XII intact, no focal neurological deficits. Skin: Clean dry and intact with no rash, purpura, petechiae, vesicles or pustules. Backs/flank: No CVA tenderness, no midline spinal tenderness, no deformity. Psych: Normal mood and affect. No SI, HI or acute psychosis. Const Vital Signs: 01/19/24 16:56 Temperature 97.6 F L Temperature Source Temporal Pulse Rate 85 Respiratory Rate 16 Blood Pressure 142/88 H Blood Pressure Mean 106 Pulse Ox 100 Oxygen Delivery Method Room Air Positive well nourished and well developed General Appearance ED: well developed <Dr. Kana Phan, DO - Last Filed: 01/19/24 18:55> Physical Exam Const Vital Signs: 01/19/24 16:56 Temperature 97.6 F L Temperature Source Temporal Pulse Rate 85 Respiratory Rate 16 Blood Pressure 142/88 H Blood Pressure Mean 106 Pulse Ox 100 Oxygen Delivery Method Room Air [facility] <Jerzy BronwPETERSON viveros - Last Filed: 01/19/24 18:48> [facility] Lab Data Labs: Laboratory Results - last 24 hr 01/19/24 17:10 WBC 16.2 H RBC 5.16 Hgb 14.5 Hct 43.6 MCV 84.5 MCH 28.1 MCHC 33.3 RDW Std Deviation 42.6 RDW Coeff of Elliott 13.8 Plt Count 377 MPV 10.9 Immature Gran % (Auto) 0.400 Neut % (Auto) 87.4 H Lymph % (Auto) 9.[address] [place] % (Auto) 2.3 Eos % (Auto) 0.0 Baso % (Auto) 0.1 Absolute Neuts (auto) 14.1 H Absolute Lymphs (auto) 1.59 Nucleated RBC % 0 Sodium 138 Potassium 3.6 Chloride 102 Carbon Dioxide 27.0 Anion Gap 9 BUN 13 Creatinine 0.81 Estim Creat Clear Calc 88.49 Est GFR (MDRD) Af Amer 107 Est GFR (MDRD) Non-Af 89 BUN/Creatinine Ratio 16.1 Glucose 105 Calcium 9.6 Total Bilirubin 0.80 AST 17 ALT 36 Alkaline Phosphatase 142 H Total Protein 8.3 H Albumin 4.2 Globulin 4.1 Albumin/Globulin Ratio 1.0 Lipase 13 Urine Color Yellow Urine Clarity Sl. Cloudy Urine pH 8.0 Ur Specific [place] 1.010 Urine Protein 30 H Urine Glucose (UA) Normal Urine Ketones 150 A* Urine Occult Blood Negative Urine Nitrite Negative Urine Bilirubin Negative Urine Urobilinogen Normal Ur Leukocyte Esterase 25 H Urine RBC 0-5 SEEN Urine WBC 0-5 SEEN Ur Squamous Epith Cells 0-5 SEEN Urine Bacteria 1+ Urine Mucus 2+ Urine Test Negative Treatment and Re-Evaluation :: Differential diagnosis includes however is not limited to: Colitis, appendicitis, acute on chronic pain, pancreatitis, acute cholecystitis, viral syndrome Patient appears generally well, patient appears nontoxic, vital signs are stable. Presenting to the emergency department with abdominal pain, nausea and vomiting. Abdominal workup was completed, CBC CMP lipase, patient's urinalysis, urine ordered. Patient be started IV Reglan, IV Toradol. Patient does have tubal ligation history. At this time do not believe that a CT scan is indicated as 1 was ordered in November 2023. Patient will be reevaluated. Patient on reevaluation was feeling much better. Patient CBC did show some leukocytosis white blood count of 16.2, I believe this is to be reactive from multiple episodes of vomitus. Patient's chemistries are unremarkable, lipase was negative. Patient's urinalysis did have some ketones however was negative for any acute infection. At this time, do not believe there is any acute surgical emergency. Patient able to pass a p.o. challenge. She does have follow-up outpatient. She is instructed to return for any worsening symptoms. She is happy with the plan of care, she will be given Reglan for home. Patient is stable for discharge. <Dr. Kana Phan, DO - Last Filed: 01/19/24 18:55> [facility] Narrative Medical decision making narrative: I have personally performed a face to face assessment of the patient and have reviewed the BRITT Note. I performed a substantive portion of the visit including all aspects of the following. My arambula findings include: History: Patient presents with abdominal pain that began today. Patient states it is gradually gotten worse. Patient states her pain is mainly over the right side of her abdomen. Patient describes as aching. Patient admits to some nausea and vomiting. Patient states she is vomiting up stomach contents. Patient denies any hematemesis or coffee-ground emesis. Patient admits to some diarrhea. Patient states it is watery. Patient denies any melena or hematochezia. Patient admits to some mild dysuria. Patient states her last menstrual period was 1 week ago. Patient denies any fevers or chills. Patient admits to recent rhinorrhea and cough. Exam: Vital signs are stable. Patient is afebrile. Patient is in no acute distress. Oral mucosa is pink and moist. Neck is supple. Trachea is midline. There is no JVD. Heart was regular rate and rhythm. Lungs are clear and equal bilaterally. Abdomen is soft. Bowel sounds are normal. There is some right upper and right lower abdominal tenderness. There is no rebound or guarding noted. There are no masses palpated. Cranial nerves II through XII are intact. There are no focal motor or sensory deficits noted. Medical Decision Making: Differential diagnosis includes gastroenteritis, cholecystitis, cholelithiasis, pancreatitis, peptic ulcer disease, duodenal ulcer, pyelonephritis, ureteral calculus, urinary tract infection, appendicitis, and diverticulitis. CBC will be obtained to assess for leukocytosis and anemia. Comprehensive metabolic profile will be obtained to assess for hepatic function , renal function, and electrolyte abnormality. Lipase will be obtained to assess for pancreatitis. Urinalysis will be obtained to assess for urinary tract infection and hematuria. Urine hCG will be obtained to assess for . Patient was given IV fluids, Toradol, and Reglan. CBC was reviewed. There is a mild leukocytosis of 16.2. The remainder is within normal limits. Comprehensive metabolic profile was reviewed and was essentially within normal limits. Lipase was reviewed and was normal at 13. Patient was feeling better on reevaluation. Patient was instructed to start with a liquid diet and advance as tolerated. Patient was instructed to follow-up with her primary care physician in 5 to 7 days. Patient understood and was agreeable with the plan. All questions were answered. Lab Data Labs: Laboratory Results - last 24 hr 01/19/24 17:10 WBC 16.2 H RBC 5.16 Hgb 14.5 Hct 43.6 MCV 84.5 MCH 28.1 MCHC 33.3 RDW Std Deviation 42.6 RDW Coeff of Elliott 13.8 Plt Count 377 MPV 10.9 Immature Gran % (Auto) 0.400 Neut % (Auto) 87.4 H Lymph % (Auto) 9.[address] [place] % (Auto) 2.3 Eos % (Auto) 0.0 Baso % (Auto) 0.1 Absolute Neuts (auto) 14.1 H Absolute Lymphs (auto) 1.59 Nucleated RBC % 0 Sodium 138 Potassium 3.6 Chloride 102 Carbon Dioxide 27.0 Anion Gap 9 BUN 13 Creatinine 0.81 Estim Creat Clear Calc 88.49 Est GFR (MDRD) Af Amer 107 Est GFR (MDRD) Non-Af 89 BUN/Creatinine Ratio 16.1 Glucose 105 Calcium 9.6 Total Bilirubin 0.80 AST 17 ALT 36 Alkaline Phosphatase 142 H Total Protein 8.3 H Albumin 4.2 Globulin 4.1 Albumin/Globulin Ratio 1.0 Lipase 13 Urine Color Yellow Urine Clarity Sl. Cloudy Urine pH 8.0 Ur Specific [place] 1.010 Urine Protein 30 H Urine Glucose (UA) Normal Urine Ketones 150 A* Urine Occult Blood Negative Urine Nitrite Negative Urine Bilirubin Negative Urine Urobilinogen Normal Ur Leukocyte Esterase 25 H Urine RBC 0-5 SEEN Urine WBC 0-5 SEEN Ur Squamous Epith Cells 0-5 SEEN Urine Bacteria 1+ Urine Mucus 2+ Urine Test Negative Discharge Plan Triage Chief Complaint: Nausea/Vomiting ED Midlevel Provider: Jerzy Linares ED Provider: Kana Phan Dx/Rx/DC Orders Clinical Impression: Abdominal pain, Nausea & vomiting Instructions: Abdominal Pain, ED Vomiting (Adult) Prescriptions: New metoclopramide HCl [Reglan] 10 mg tablet 10 mg PO Q6H PRN (Reason: nausea and vomiting) Qty: 14 0RF No Action escitalopram oxalate [Lexapro] 10 mg tablet 10 mg PO DAILY Primary Care Provider: Scarlet Lemus Referrals: Scarlet Lemus MD [Primary Care Provider] - Activity Restrictions/Additional Instructions: If the pain persist, unable to keep any food down please return. Try the Reglan. Follow-up outpatient as scheduled. Print Language: Chilean Disposition Disposition: Home, Self Care
[2024-01-19 18:03] LABS: Color, Urine Yellow (Yellow); Glucose, Dipstick Normal (Normal); Leukocyte Esterase-Dipstick 25 /ul (Negative); Nitrite-Dipstick Negative (Negative); Occult Blood-Urine Negative /ul (Negative); Protein-Dipstick 30 mg/dl (Negative); Urine Bilirubin Dipstick Negative (Negative); Urine Clarity Sl. Cloudy (Clear); Urine Urobilinogen Normal (Normal)
[2024-01-19 18:16] LABS: Ketone-Dipstick 150 mg/dl (Negative)
[2024-01-19 18:19] LABS: Mucous, Urine 2+ /hpf (<or=2+); Red Blood Cells-Urine 0-5 SEEN /hpf (0-5); White Blood Cells 0-5 SEEN /hpf (0-5)
[2024-01-19 18:20] LABS: Bacteria 1+ /hpf (None Seen); Internal QC Validated? YES +Cl - CLEAR BKGD; Pregnancy, Urine Negative Negative; Squamous Epithelial Cells - UA 0-5 SEEN /hpf (5-10)
[2024-01-19 18:54] VITALS: BP 104/59; PULSE 74; RESP 16; TEMP 36.5; O2SAT 97
[2024-01-19 18:55] VITALS: BP 104/59; PULSE 75; RESP 16; O2SAT 97
== END 2024-01-19 18:56 | disposition home or self-care (01) ==
PROVIDERS: Nurse Practitioner; Emergency Provider Emergency Medicine; PCP Internal Medicine; Visit Provider Emergency Medicine
DX: R11.2 Nausea with vomiting, unspecified (principal); F17.210 Nicotine dependence, cigarettes, uncomplicated; F41.9 Anxiety disorder, unspecified; F32.A Depression, unspecified; Z79.899 Other long term (current) drug therapy; Z90.49 Acquired absence of other specified parts of digestive tract; Z98.51 Tubal ligation status; R10.9 Unspecified abdominal pain
CPT/HCPCS: 80053; 81001; 81025; 83690; 85025; 96361; 96374; 96375; 99283; J7030; A4216

== ENCOUNTER 2024-03-28 23:30 | Emergency (ER) | payer MEDICAID, SELFPAY ==
[2024-03-28 23:31] VITALS: BP 141/99; PULSE 115; RESP 15; TEMP 36.2; O2SAT 97; BMI 21.7
--- NOTE | 2024-03-29 00:02 | EKG12_ITS ---
Test Reason : DYSRHYTHMIA Blood Pressure : / mmHG Vent. Rate : 093 BPM Atrial Rate : 093 BPM P-R Int : 146 ms QRS Dur : 080 ms QT Int : 334 ms P-R-T Axes : 072 089 071 degrees QTc Int : 415 ms Poor data quality, interpretation may be adversely affected Normal sinus rhythm Normal ECG Confirmed by ZOFIA YEUNG, ANNA ([id number]), subeditor JOHN PATEL ([id number]) on 03/30/2024 6:45:21 AM Referred By: BB Confirmed By:ANNA ARMIJO MD
[2024-03-29 00:04] VITALS: O2SAT 100
--- NOTE | 2024-03-29 00:04 | EDS_ITS ---
HPI History of Present Illness Chief Complaint: Palpitations Informant: patient and spouse/S.O. Narrative Narrative: 29-year-old female presenting with about a 5-minute episode of palpitations that felt like skipping, started all of a sudden while she was in the car riding, she felt faint but did not lose consciousness. She states the symptoms are gone now, it occurred 15 or 20 minutes ago, and she is not feeling better. She states this has been occurring every week or 2 for the last 4-6 months or so, she is not sure exactly, and she states she started a new medication Vraylar 1 week ago. She also states is a separate issue that she is having sore lymph nodes below her chin and in front of her right ear for the past several weeks as well. For the last 2 or 3 months all summer she has been having skin breakouts on her face that have sometimes hurt and sometimes itch and seem to be associated with exposure to the sun. Vraylar is the only medication change she has had lately other than recently discontinuing Remeron within the last week. The patient denies using any stimulants or illicit drugs. She denies any obvious triggers for these episodes. This is the first time she has come to the emergency department. She states today, this episode lasted longer than most at 5 minutes, and it was unusual that she did not pass out because she usually does. [facility] Medical History Vaginal delivery History of cocaine abuse 38 weeks gestation of PROM (premature rupture of membranes) Ovarian cyst Depression affecting Family history of malignant hyperthermia Hiatal hernia Tonsillectomy planned hemorrhage Depression Anxiety Pancreatitis Home Medications ?Medication ?Instructions ?Recorded ?Last Taken ?Type escitalopram oxalate 10 mg tablet 10 mg PO DAILY 10/27/23 Unknown History (Lexapro) metoclopramide HCl 10 mg tablet 10 mg PO Q6H PRN nausea and 01/19/24 Unknown Rx (Reglan) vomiting #14 tabs Allergy/AdvReac Type Severity Reaction Status Date / Time fructose AdvReac Mild Upset Verified 03/28/24 23:31 Stomach Family History Grandmother Malignant hyperthermia Surgical History History of adenoidectomy History of appendectomy Social History household members: spouse and children Smoking Status: Current every day smoker tobacco type: cigarettes substance use type: does not use ROS ROS ED Constitutional Constitutional ED: Denies chills or fever(s) Eyes Eyes: Denies change in vision or diplopia ENT ENT ED: Reports as per HPI; Denies rhinorrhea, sore throat, throat swelling or tongue swelling Cardiovascular Cardiovascular: Reports lightheadedness and palpitations; Denies chest pain or syncope Respiratory/Chest Respiratory/Chest: Denies cough or dyspnea Gastrointestinal Gastrointestinal: Denies abdominal pain, diarrhea, nausea or vomiting Genitourinary Genitourinary ED: Denies dysuria or hematuria Musculoskeletal Musculoskeletal: Denies back pain or neck pain Integumentary Reports rash; Denies abscess Neurologic Neurologic: Denies headache(s), paresthesias or weakness Psychiatric Psychiatric: Denies suicidal thoughts EXAM Physical Exam Const Vital Signs: 03/28/24 23:31 03/28/24 23:37 Temperature 97.2 F L Temperature Source Temporal Pulse Rate 115 H Respiratory Rate 15 Respiratory Effort Short of Breath Blood Pressure 141/99 H Blood Pressure Mean 113 Pulse Ox 97 Oxygen Delivery Method Room Air Positive well nourished and well developed General Appearance ED: well developed and NAD HEENT Reports moist mucous membranes HEENT Narrative: There is a scattered superficial rash throughout the face, none of it is tender or erythematous, there are patches of what appear to be healing skin/epidermis. No obvious active infection abscess or pustule/vesicle. normocephalic and atraumatic Eyes PERRL and EOMs intact bilaterally Neck full ROM and supple Neck Narrative: Tender mobile submental lymph node and tender mobile right preauricular lymph node. No other lymphadenopathy. No overlying abnormalities to suggest buboe. Resp normal respiratory effort and clear to auscultation bilaterally Cardio regular rate, regular rhythm and no murmurs GI non-tender and non-distended Auscultation: normoactive bowel sounds Palpation: soft Back/Spine no CVA tenderness General Back: other FROM Extremity normal to inspection General Extremety ED: Negative for edema, pulses abnormal or tenderness General Extremity: Negative for edema or pulses abnormal Neuro oriented x3, CN's II-XII intact bilaterally and no sensory deficits noted Sensorium / Orientation: awake and alert Motor Exam: strength 5/5 throughout Psych Psych Narrative: Anxious and with a little psychomotor agitation Skin no wounds MDM MDM MDM Narrative Medical decision making narrative: As I discussed with the patient, it is possible she is having dysrhythmias, ectopy, or both. Obtained an EKG it is normal in my interpretation. We watched on the monitor she had no events during a short time she was here, I did explain that her lymphadenopathy was likely reactive and I saw all no evidence of any type of acute bacterial infection requiring antibiotics. Her throat is normal she is not having any URI symptoms correlating with the duration of the lymphadenopathy, it may be related to her skin condition on her face. She suggesting it might be a photosensitivity reaction, I went to order a workup and the nurses simultaneously placed an IV, and I was going to look up her medication to see if any of them could cause a photosensitivity reaction, when nursing alerted me that the patient ripped her IV out and eloped. Rhythm Strip Rhythm Strip: Sinus Rhythm Rate: 95 Ectopy: None EKG Initial EKG: Attestation: I personally reviewed and interpreted this EKG as follows: Interpretation: Sinus Rhythm and No Acute Injury Pattern Comments: Normal EKG. No repolarization abnormality. Discharge Plan Triage Chief Complaint: Palpitations ED Provider: Hardy Wood Dx/Rx/DC Orders Clinical Impression: Palpitations, Lymphadenopathy, submental, Facial rash Prescriptions: No Action escitalopram oxalate [Lexapro] 10 mg tablet 10 mg PO DAILY metoclopramide HCl [Reglan] 10 mg tablet 10 mg PO Q6H PRN (Reason: nausea and vomiting) Qty: 14 0RF Primary Care Provider: Scarlet Lemus Referrals: Scarlet Lemus MD [Primary Care Provider] - Print Language: Burundian Disposition Disposition: Elopement
--- NOTE | 2024-03-29 00:09 | ED.RN ---
Addendum entered by Emily Mcnamara 03/29/24 00:14: The patient's friend came to the nurses station and asked how much longer it would be. Betty Mejía replied to the patient. A few minutes later the patient took the cardiac leads off. This RN witnessed the patient leave the room dressed and with all of her belongings. This RN stated Are you guys leaving? She ignored me and continued to leave. I stated I need to get your iv out and she showed me her arm and stated I took it out myself. Pt is now out of department. Original Note: THIS RN WITNESSED THE PATIENT LEAVE WITH ALL OF HER CLOTHES ON. THIS RN STOPPED HER TO GET AN IV OUT AND THE PATIENT SHOWED ME HER ARMS AND STATED SHE TOOK IT OUT HERSELF.
[2024-03-29 00:15] LABS: Absolute Lymphocyte Count 3.64 X10^3/uL (0.83-4.51); Absolute Neutrophil Count 7.4 X10^3/uL (2.0-7.7); Basophil# 0.03 X10^3/uL; Basophil% 0.2 % (0-1); Eosinophil# 0.21 X10^3/uL; Eosinophils% 1.7 % (0-5); Hematocrit 38.1 % (37-47); Hemoglobin 13.1 g/dL (12.0-15.0); Lymphocyte # 3.64 X10^3/ul (0.83-4.51); Lymphocyte % 30.3 % (19-41); Mean Corp Hgb Conc 34.4 g/dL (32-36); Mean Corpuscular Hgb 29.7 pg (27.0-32.0); Mean Corpuscular Volume 86.4 fL (81-99); Mean Platelet Vol. 11.1 fl (6.2-12.0); Monocyte# 0.69 X10^3/uL; Monocyte% 5.7 % (0-10); NRBC Flagged by Analyzer 0 % (0-5); Neutrophil # 7.41 X10^3/uL (2.7-7.7); Neutrophil % 61.8 % (47-70); Platelet Count 247 K/mm3 (150-450); RBC Distribution Width CV 12.8 % (11.6-14.6); RBC Distribution Width SD 40.1 fl (35.1-43.9); Red Blood Count 4.41 M/mm3 (4.2-5.4)
[2024-03-29 00:32] LABS: Anion Gap 4 (5-15); BUN 10 mg/dL (7-18); BUN/Creat Ratio 18.1 RATIO (10-20); Calcium,Total 8.9 mg/dL (8.5-10.1); Chloride 104 mmol/L (98-107); Creatinine, Serum 0.55 mg/dL (0.55-1.02); EST Glomerular Filtration Rate 138 mL/min (>60); Est Glom Filt Rate - Afr Amer 167 mL/min (>60); Estimated Creatinine Clearance 129.15 ml/min; Glucose 162 mg/dL (74-106); Potassium 3.5 mmol/L (3.5-5.1); Sodium Level 138 mmol/L (136-145); Troponin-I HS (w/2H Reflex) < 3 pg/mL (3.0-54.0)
[2024-03-29 02:11] LABS: Reflex Troponin-HS? (from REC) Y
== END 2024-03-29 | disposition left against medical advice (07) ==
LOC: ED 03-29 00:14
PROVIDERS: Emergency Provider Emergency Medicine; PCP Internal Medicine; Visit Provider Emergency Medicine
DX: R00.2 Palpitations (principal); R59.0 Localized enlarged lymph nodes; R21 Rash and other nonspecific skin eruption; F17.210 Nicotine dependence, cigarettes, uncomplicated
CPT/HCPCS: 80048; 84484; 85025; 93005; 99284; A4216

== ENCOUNTER 2024-06-07 12:28 | Emergency (ER) | payer MEDICAID, SELFPAY ==
[2024-06-07 12:30] VITALS: BP 115/77; PULSE 90; RESP 15; TEMP 35.9; O2SAT 100; BMI 23.2
--- NOTE | 2024-06-07 12:44 | CT_ITS ---
EXAM: CT ABDOMEN AND PELVIS WITH INTRAVENOUS CONTRAST CLINICAL INDICATION: Left upper quadrant pain TECHNIQUE: Helically acquired images were obtained of the abdomen and pelvis with intravenous contrast. This CT exam was performed using one or more of the following dose reduction techniques: automated exposure control, adjustment of the mA and/or kV according to patient size, and/or use of iterative reconstruction technique. CONTRAST: IV 70mL [id number] COMPARISON: 10/19/2023 FINDINGS: LOWER THORAX: Mild distal esophageal wall thickening perhaps indicative of esophagitis. Lung bases are clear. No cardiomegaly. No significant pericardial effusion. ABDOMEN: LIVER: No significant abnormality. Homogeneous. No focal mass. GALLBLADDER AND BILE DUCTS: Gallbladder wall thickening likely due to its decompressed appearance. No calcified gallstones. No intra- or extrahepatic biliary ductal dilation. PANCREAS: No significant abnormality. No focal cystic or solid mass. SPLEEN: No significant abnormality. Normal size without focal cystic or solid mass. ADRENALS: No significant abnormality. No nodules. KIDNEYS AND URETERS: No significant abnormality. Normal renal size and position. No hydronephrosis. STOMACH AND BOWEL: Moderate to large amount of colorectal stool retention. Apparent diffuse small bowel wall thickening perhaps indicative of an enteritis. No stomach or bowel distention. PELVIS: APPENDIX: Surgical clips in the right lower quadrant consistent with prior appendectomy. BLADDER: No significant abnormality. REPRODUCTIVE: Normal as visualized. No mass. ABDOMEN and PELVIS: INTRAPERITONEAL SPACE: No significant abnormality. No ascites or other fluid collection. No free air. BONES/JOINTS: No significant abnormality. No suspicious lytic or blastic abnormality. SOFT TISSUES: No significant abnormality. No discrete abdominal or pelvic wall hernia. VASCULATURE: No significant abnormality. Abdominal aorta is non-dilated. LYMPH NODES: No significant abnormality. No enlarged lymph nodes. CT/Abdomen/Pelvis W IV Cont ONLY IMPRESSION: 1. Moderate to large amount of colorectal stool retention. 2. Mild distal esophageal wall thickening perhaps indicative of esophagitis. 3. Apparent diffuse small bowel wall thickening perhaps indicative of an enteritis. No small bowel obstruction. 4. Gallbladder wall thickening likely due to its decompressed appearance. Correlate clinically for potential evidence of cholecystitis. And if indicated obtain follow-up right upper quadrant ultrasound. Electronically Signed: Riki Bravo DO at 13:50 EST ,
--- NOTE | 2024-06-07 12:44 | ED.VIS.GI ---
HPI HPI - GI History of Present Illness Chief Complaint: Abd Pain Narrative Narrative: 29-year-old female past medical history of chronic pancreatitis presents with body swelling, and pain in the epigastrium to left upper quadrant of her abdomen that she has had for the last day. She denies any problems with bowel movements, no dysuria. She states she sees a billet assembler with the [facility] for her chronic pancreatitis. She states her abdomen feels bloated. She also feels very lightheaded and near syncopal, worse with standing. She endorses nausea but no vomiting. Last menstrual period was a week ago and was normal. No exacerbating or alleviating factors. [facility] Medical History Vaginal delivery History of cocaine abuse 38 weeks gestation of PROM (premature rupture of membranes) Ovarian cyst Depression affecting Family history of malignant hyperthermia Hiatal hernia Tonsillectomy planned hemorrhage Depression Anxiety Pancreatitis Home Medications ?Medication ?Instructions ?Recorded ?Last Taken ?Type escitalopram oxalate 10 mg tablet 10 mg PO DAILY 10/27/23 Unknown History (Lexapro) metoclopramide HCl 10 mg tablet 10 mg PO Q6H PRN nausea and 01/19/24 Unknown Rx (Reglan) vomiting #14 tabs cariprazine 1.5 mg capsule 1.5 mg PO DAILY 06/07/24 Unknown History (Vraylar) dicyclomine 10 mg capsule 20 mg (2 x 10 mg) PO TID PRN 06/07/24 Unknown Rx abdominal pain #20 caps xjnuyr-pfqtqsbe-[id number] 1 cap PO TID 06/07/24 Unknown History 36,000-114,000-180,000 unit capsule,delay rel (Creon) ondansetron 4 mg disintegrating 4 mg PO Q6H PRN nausea and 06/07/24 Unknown Rx tablet vomiting #15 tabs Allergy/AdvReac Type Severity Reaction Status Date / Time acetaminophen (From Percocet) Allergy Severe Angioedema Verified 06/07/24 12:31 oxycodone (From Percocet) Allergy Severe Angioedema Verified 06/07/24 12:31 fructose AdvReac Mild Upset Verified 03/28/24 23:31 Stomach Family History Grandmother Malignant hyperthermia Surgical History History of adenoidectomy History of appendectomy Social History household members: spouse and children Smoking Status: Current every day smoker tobacco type: cigarettes substance use type: does not use ROS ROS ED ROS Narrative Constitutional: No fever, no chills. HEENT: No sore throat. No neck pain. No loss of vision. No rhinorrhea. Cardiovascular: No chest pain. No palpitations. No pedal edema. Respiratory: No cough, no shortness of breath. Abdominal: Positive epigastric to left upper quadrant abdominal pain. Positive nausea. No vomiting. Abdomen feels bloated. Genitourinary: No dysuria. No hematuria. Musculoskeletal: No myalgias. No arthralgias. Neurologic: No headaches. No dizziness. Positive lightheadedness and near syncope. Skin: No rash. No change in color. EXAM Physical Exam Narrative Exam Narrative: Afebrile. Vital signs noted. Cardiovascular examination regular rate and rhythm. Lungs clear to auscultation bilaterally. Abdomen soft with mild tenderness to palpation left upper quadrant. Negative Vickers sign. No rebound or guarding. Neurological examination nonfocal and nonlateralizing. Const Vital Signs: 06/07/24 12:30 06/07/24 12:52 06/07/24 14:29 Temperature 96.6 F L Temperature Source Temporal Pulse Rate 90 70 Respiratory Rate 15 16 Respiratory Effort Normal Non-Labored Respiratory Pattern Normal Blood Pressure 115/77 112/78 Blood Pressure Mean 89 89 Pulse Ox 100 99 Oxygen Delivery Method Room Air 06/07/24 16:09 Temperature 97.6 F L Temperature Source Temporal Pulse Rate 65 Respiratory Rate 16 Respiratory Effort Respiratory Pattern Blood Pressure 100/59 L Blood Pressure Mean 72 Pulse Ox 99 Oxygen Delivery Method Room Air MDM MDM MDM Narrative Medical decision making narrative: Differential diagnosis includes but not limited to near syncope from dehydration versus intravascular volume depletion versus orthostatic hypotension versus other electrolyte imbalance. Regarding her left upper quadrant abdominal pain, differential diagnosis includes colitis especially of the transverse colon versus pancreatitis/chronic pancreatitis. I have low suspicion for splenic rupture. She has not had recent trauma to the abdomen. Comprehensive workup was pursued. Patient administered Toradol and ondansetron for analgesia initially. I reviewed her laboratory work and she has a normal white count of 5.5 with hemoglobin stable at 11.2, hematocrit 35.8, platelet count normal at 181. Sodium is normal at 142 with potassium 3.9, chloride slightly elevated at 108 which I think is nonspecific, as well as carbon dioxide 33. BUN is normal at 11 and his creatinine is 0.60, no dehydration. Glucose normal at 85. Of note, her LFTs are elevated when compared to prior laboratories with an AST of 365, ALT of 465, and alk phos 173. Patient states she does not drink alcohol. Lipase is normal at 32 so I doubt gallstone pancreatitis. I reviewed the radiology report of the CT of the abdomen and pelvis and the gallbladder is collapsed but may have wall thickening. Given her LFTs that are elevated I do feel that she requires gallbladder ultrasound. Additionally, they come on on thickened distal esophagus as well as small bowel thickening consistent with enteritis. No evidence of obstruction. Urinalysis obtained and reviewed and is negative for infection. I do not feel antibiotics are required. Patient was administered an additional dose of ondansetron and was administered morphine for analgesia as she has elevated LFTs and is awaiting ultrasound. Additionally, repeat examination shows her abdomen to remain soft and she has minimal tenderness in the epigastrium, and states is more in the left upper quadrant. I reviewed the radiology report of the ultrasound of the right upper quadrant. Patient has mild gallbladder wall thickening but no pericholecystic fluid, no gallstones noted. I discussed patient with Dr. Hampton with general surgery who has reviewed the imaging, and it was not felt that this is cholecystitis. She suggested sending off a hepatitis panel and discharging the patient to follow-up with primary care and her billet assembler. I inquired with the patient about what was the cause of her chronic pancreatitis, but she states that it runs in her family and that she has always had problems with her stomach/abdomen. At this point in time, she will be discharged to follow-up with her primary care provider and her billet assembler. She was informed of the elevated LFTs. She will start a clear liquid diet and advance as tolerated. She was given prescriptions for Bentyl and for ondansetron as I do not feel narcotic pain medication is indicated. Return instructions to the emergency department were reviewed. Disposition is discharged home in stable condition. History & Record Review Discussion w/independent historian: Patient Lab Data Attestation: I reviewed the patient's lab results. Labs: Laboratory Results - last 24 hr 06/07/24 06/07/24 12:50 13:56 WBC 5.5 RBC 3.89 L Hgb 11.2 L Hct 35.8 L MCV 92.0 MCH 28.8 MCHC 31.3 L RDW Std Deviation 44.8 H RDW Coeff of Elliott 13.2 Plt Count 181 MPV 10.9 Immature Gran % (Auto) 0.400 Neut % (Auto) 39.9 L Lymph % (Auto) 48.5 H Lander % (Auto) 8.2 Eos % (Auto) 2.6 Baso % (Auto) 0.4 Absolute Neuts (auto) 2.2 Absolute Lymphs (auto) 2.66 Nucleated RBC % 0 Sodium 142 Potassium 3.9 Chloride 108 H Carbon Dioxide 33.0 H Anion Gap 1 L BUN 11 Creatinine 0.60 Estim Creat Clear Calc 118.39 Est GFR (MDRD) Af Amer 152 Est GFR (MDRD) Non-Af 126 BUN/Creatinine Ratio 18.5 Glucose 85 Calcium 8.3 L Total Bilirubin 0.30 AST 365 H ALT 465 H Alkaline Phosphatase 173 H Total Protein 6.1 L Albumin 3.3 Globulin 2.8 Albumin/Globulin Ratio 1.2 Lipase 32 Serum , Qual NEGATIVE Urine Color Yellow Urine Clarity Clear Urine pH 6.0 Ur Specific [place] 1.020 Urine Protein 30 H Urine Glucose (UA) Normal Urine Ketones Negative Urine Occult Blood Negative Urine Nitrite Negative Urine Bilirubin Negative Urine Urobilinogen 1 H Ur Leukocyte Esterase 25 H Urine RBC 0-5 SEEN Urine WBC 0-5 SEEN Ur Squamous Epith Cells 0-5 SEEN Amorphous Sediment 1+ Urine Bacteria 1+ Urine Mucus 0 SEEN Radiography Diagnostic Testing: Clinical Impression(s) from Imaging Studies Abdomen/Pelvis CT 06/07/24 12:44 IMPRESSION: 1. Moderate to large amount of colorectal stool retention. 2. Mild distal esophageal wall thickening perhaps indicative of esophagitis. 3. Apparent diffuse small bowel wall thickening perhaps indicative of an enteritis. No small bowel obstruction. 4. Gallbladder wall thickening likely due to its decompressed appearance. Correlate clinically for potential evidence of cholecystitis. And if indicated obtain follow-up right upper quadrant ultrasound. Electronically Signed: Riki Bravo DO at 13:50 EST , Gallbladder Ultrasound 06/07/24 14:01 IMPRESSION: 1. Possible mild/early fatty liver. 2. Positive sonographic Vickers''s sign and apparent gallbladder wall thickening without the presence of stones. The patient elicited may be due to other organ system pathology. Consider follow-up hepatobiliary scan to assess for potential gallbladder dysfunction. Electronically Signed: Riki VAldo Bravo DO at 15:50 EST , Discharge Plan Triage Chief Complaint: Abd Pain Other Complaint: Syncope ED Provider: Allen Moore Dx/Rx/DC Orders Clinical Impression: Abdominal pain, Nausea, Elevated LFTs Instructions: ED Abdominal Pain Unkn Cause Fem Prescriptions: New ondansetron 4 mg tablet,disintegrating 4 mg PO Q6H PRN (Reason: nausea and vomiting) Qty: 15 0RF dicyclomine 10 mg capsule 20 mg PO TID PRN (Reason: abdominal pain) Qty: 20 0RF No Action escitalopram oxalate [Lexapro] 10 mg tablet 10 mg PO DAILY metoclopramide HCl [Reglan] 10 mg tablet 10 mg PO Q6H PRN (Reason: nausea and vomiting) Qty: 14 0RF Creon 36,000-114,000- 180,000 unit capsule,delayed release(DR/EC) 1 cap PO TID Vraylar 1.5 mg capsule 1.5 mg PO DAILY Primary Care Provider: Susanna Torres Referrals: Scarlet Lemus MD [Med Staff - [employer] Test Engineer] - 3-5 Days Activity Restrictions/Additional Instructions: You had elevated liver function test today. Follow-up with your primary care provider to check your hepatitis panel that was sent. Follow-up with your gastroenterologists as well. Return with fever, new or worsening symptoms. Print Language: Luxembourgish Disposition Disposition: Home, Self Care
[2024-06-07] MEDS: Ondansetron 4 MG/2 ML Vial IV ×2 (12:56→14:16)
[2024-06-07] MEDS: Ketorolac 30 MG/ML Syringe IV (12:56)
[2024-06-07 13:02] LABS: Absolute Lymphocyte Count 2.66 X10^3/uL (0.83-4.51); Absolute Neutrophil Count 2.2 X10^3/uL (2.0-7.7); Basophil# 0.02 X10^3/uL; Basophil% 0.4 % (0-1); Eosinophil# 0.14 X10^3/uL; Eosinophils% 2.6 % (0-5); Hematocrit 35.8 % (37-47); Hemoglobin 11.2 g/dL (12.0-15.0); Lymphocyte # 2.66 X10^3/ul (0.83-4.51); Lymphocyte % 48.5 % (19-41); Mean Corp Hgb Conc 31.3 g/dL (32-36); Mean Corpuscular Hgb 28.8 pg (27.0-32.0); Mean Platelet Vol. 10.9 fl (6.2-12.0); Monocyte# 0.45 X10^3/uL; Monocyte% 8.2 % (0-10); NRBC Flagged by Analyzer 0 % (0-5); Neutrophil % 39.9 % (47-70); Platelet Count 181 K/mm3 (150-450); RBC Distribution Width CV 13.2 % (11.6-14.6); RBC Distribution Width SD 44.8 fl (35.1-43.9); Red Blood Count 3.89 M/mm3 (4.2-5.4); White Blood Count 5.5 K/mm3 (4.4-11.0)
[2024-06-07 13:12] LABS: Internal QC Validated? YES +Cl - CLEAR BKGD; Pregnancy, Serum, hCG Quali. NEGATIVE Negative
[2024-06-07 13:17] LABS: ALB/GLOB Ratio 1.2 RATIO (0.9-2.4); AST(SGOT) 365 U/L (15-37); Alanine Aminotransfer ALT/SGPT 465 U/L (13-56); Albumin, Serum 3.3 g/dL (3.2-5.0); Alkaline Phosphatase 173 U/L (45-117); Anion Gap 1 (5-15); BUN 11 mg/dL (7-18); BUN/Creat Ratio 18.5 RATIO (10-20); Calcium,Total 8.3 mg/dL (8.5-10.1); Chloride 108 mmol/L (98-107); EST Glomerular Filtration Rate 126 mL/min (>60); Est Glom Filt Rate - Afr Amer 152 mL/min (>60); Estimated Creatinine Clearance 118.39 ml/min; Globulin 2.8 g/dL (2.2-4.2); Glucose 85 mg/dL (74-106); Lipase 32 U/L (13-75); Potassium 3.9 mmol/L (3.5-5.1); Protein, Total 6.1 g/dL (6.4-8.2); Sodium Level 142 mmol/L (136-145)
[2024-06-07 13:59] LABS: Mucous, Urine 0 SEEN /hpf (<or=2+)
--- NOTE | 2024-06-07 14:01 | US_ITS ---
EXAM: US ABDOMEN LIMITED, RIGHT UPPER QUADRANT CLINICAL INDICATION: elevated lfts, pain TECHNIQUE: Real-time ultrasound of the right upper quadrant with image documentation. COMPARISON: CT abdomen and pelvis on the same date. FINDINGS: LIVER: Mild diffuse increased echogenicity of the liver without focal hepatic abnormality. No intrahepatic biliary ductal dilation. GALLBLADDER: Positive sonographic Vickers''s sign although no evidence of pericholecystic edema and there are no stones. The gallbladder is incompletely distended. Perhaps mild focal wall thickening of the gallbladder along the hepatic margin. COMMON BILE DUCT: Normal as visualized. The proximal common bile duct is within normal limits for the patient''s age. PANCREAS: Normal as visualized. No focal abnormality is demonstrated in the pancreas. No pancreatic ductal dilatation. RIGHT KIDNEY: No significant abnormality. There is no hydronephrosis. No shadowing calculus. No focal lesion or perinephric collection is demonstrated. US/Gallbladder IMPRESSION: 1. Possible mild/early fatty liver. 2. Positive sonographic Vickers''s sign and apparent gallbladder wall thickening without the presence of stones. The patient elicited may be due to other organ system pathology. Consider follow-up hepatobiliary scan to assess for potential gallbladder dysfunction. Electronically Signed: Riki Bravo DO at 15:50 EST ,
[2024-06-07 14:08] LABS: Color, Urine Yellow (Yellow); Glucose, Dipstick Normal (Normal); Ketone-Dipstick Negative (Negative); Leukocyte Esterase-Dipstick 25 /ul (Negative); Nitrite-Dipstick Negative (Negative); Occult Blood-Urine Negative /ul (Negative); Protein-Dipstick 30 mg/dl (Negative); Urine Bilirubin Dipstick Negative (Negative); Urine Clarity Clear (Clear); Urine Urobilinogen 1 mg/dl (Normal)
[2024-06-07 14:17] LABS: Amorphous Sediment 1+; Bacteria 1+ /hpf (None Seen); Red Blood Cells-Urine 0-5 SEEN /hpf (0-5); Squamous Epithelial Cells - UA 0-5 SEEN /hpf (5-10); White Blood Cells 0-5 SEEN /hpf (0-5)
[2024-06-07] MEDS: Morphine 4 MG/ML Syringe IV (14:17)
[2024-06-07 14:29] VITALS: BP 112/78; PULSE 70; RESP 16; O2SAT 99
[2024-06-07 16:09] VITALS: BP 100/59; PULSE 65; RESP 16; TEMP 36.4; O2SAT 99
[2024-06-07 16:21] VITALS: BP 100/59; PULSE 65; RESP 16; TEMP 36.4; O2SAT 99
[2024-06-09 05:08] LABS: HEPATITIS B SURFACE AG Negative (Negative); Hep C Antibodies Non Reactive (Non Reactive); Hepatitis A IgM Antibody Negative (Negative); Hepatitis B Core AB IgM Negative (Negative)
== END 2024-06-07 16:21 | disposition home or self-care (01) ==
PROVIDERS: Emergency Provider Emergency Medicine; PCP Nurse Practitioner Family; Visit Provider Emergency Medicine
DX: R10.13 Epigastric pain (principal); R10.12 Left upper quadrant pain; R94.5 Abnormal results of liver function studies; R11.0 Nausea; F17.210 Nicotine dependence, cigarettes, uncomplicated
CPT/HCPCS: 74177; 76705; 80053; 80074; 81001; 83690; 84703; 85025; 96374; 96375; 96376; 99284; Q9967; A4216; J2405

== ENCOUNTER 2024-06-12 18:52 | Emergency (ER) | payer MEDICAID, SELFPAY ==
[2024-06-12 18:54] VITALS: BP 110/74; PULSE 106; RESP 18; TEMP 36.8; O2SAT 100; BMI 22.4
[2024-06-12 18:56] VITALS: BP 110/74; PULSE 106; RESP 18; TEMP 36.8; O2SAT 100
--- NOTE | 2024-06-12 19:28 | EX.ED.DYSGE1 ---
HPI <HOLLAND Cruz - Last Filed: 06/12/24 20:32> History of Present Illness Chief Complaint: Wound Check Narrative Narrative: 29-year-old female is POD #3 from cholecystectomy done at [facility] in [place] by Dr. Humberto Kaur. She stayed overnight initially because she had a lot of pain. She has been taking Nehalem at home. Yesterday she hit her abdomen on the kitchen table because her 1-year-old daughter started to fall and she got up to try and catch her. She noticed one of her incisions seem to pop open and she is having increased pain since then. No fever, chills, or vomiting. She is having normal bladder and bowel movements. PFSH <HOLLAND Cruz - Last Filed: 06/12/24 20:32> [facility] Medical History Vaginal delivery History of cocaine abuse 38 weeks gestation of PROM (premature rupture of membranes) Ovarian cyst Depression affecting Family history of malignant hyperthermia Hiatal hernia Tonsillectomy planned hemorrhage Depression Anxiety Pancreatitis Home Medications ?Medication ?Instructions ?Recorded ?Last Taken ?Type escitalopram oxalate 10 mg tablet 10 mg PO DAILY 10/27/23 Unknown History (Lexapro) metoclopramide HCl 10 mg tablet 10 mg PO Q6H PRN nausea and 01/19/24 Unknown Rx (Reglan) vomiting #14 tabs cariprazine 1.5 mg capsule 1.5 mg PO DAILY 06/07/24 Unknown History (Vraylar) dicyclomine 10 mg capsule 20 mg (2 x 10 mg) PO TID PRN 06/07/24 Unknown Rx abdominal pain #20 caps ejuadl-nezomrvj-[id number] 1 cap PO TID 06/07/24 Unknown History 36,000-114,000-180,000 unit capsule,delay rel (Creon) ondansetron 4 mg disintegrating 4 mg PO Q6H PRN nausea and 06/07/24 Unknown Rx tablet vomiting #15 tabs Allergy/AdvReac Type Severity Reaction Status Date / Time acetaminophen (From Percocet) Allergy Severe Angioedema Verified 06/12/24 18:54 oxycodone (From Percocet) Allergy Severe Angioedema Verified 06/12/24 18:54 fructose AdvReac Mild Upset Verified 06/12/24 18:54 Stomach Family History Grandmother Malignant hyperthermia Surgical History History of adenoidectomy History of appendectomy Social History household members: spouse and children Smoking Status: Current every day smoker tobacco type: cigarettes substance use type: does not use ROS <HOLLAND Cruz - Last Filed: 06/12/24 20:32> ROS ED ROS Narrative Constitutional: Negative for fever, chills, malaise. CVS: Negative for chest pain. Respiratory: Negative for shortness of breath. GI: Positive for abdominal pain,. Negative for vomiting, diarrhea, constipation, melena, hematochezia. EXAM <HOLLAND Cruz - Last Filed: 06/12/24 20:32> Physical Exam Narrative Exam Narrative: CONST: Patient sitting in no acute distress. EYES: Normal inspection. NECK: Normal inspection. RESP: No respiratory distress, CTAB. CVS: Regular rate and rhythm, no murmur, no gallop. ABD: Soft with moderate RUQ tenderness, no guarding or rebound. Laparoscopic incisions appear to be healing well without erythema drainage or fluctuance. SKIN: Color normal, no rash, warm, dry, intact. EXTREMITIES: Normal appearance, no pedal edema. NEURO: Alert and answering questions appropriately. PSYCH: Normal affect. Const Vital Signs: 06/12/24 18:54 06/12/24 18:56 06/12/24 19:56 Temperature 98.3 F 98.3 F 96.3 F L Temperature Source Oral Oral Temporal Pulse Rate 106 H 106 H 89 Respiratory Rate 18 18 17 Blood Pressure 110/74 110/74 135/87 H Blood Pressure Mean 86 86 103 Pulse Ox 100 100 98 Oxygen Delivery Method Room Air Room Air Room Air 06/12/24 20:23 Temperature 96.3 F L Temperature Source Pulse Rate 89 Respiratory Rate 17 Blood Pressure 135/87 H Blood Pressure Mean 103 Pulse Ox 98 Oxygen Delivery Method <Dr. Kana Phan, DO - Last Filed: 06/12/24 21:24> Physical Exam Const Vital Signs: 06/12/24 18:54 06/12/24 18:56 06/12/24 19:56 Temperature 98.3 F 98.3 F 96.3 F L Temperature Source Oral Oral Temporal Pulse Rate 106 H 106 H 89 Respiratory Rate 18 18 17 Blood Pressure 110/74 110/74 135/87 H Blood Pressure Mean 86 86 103 Pulse Ox 100 100 98 Oxygen Delivery Method Room Air Room Air Room Air 06/12/24 20:23 Temperature 96.3 F L Temperature Source Pulse Rate 89 Respiratory Rate 17 Blood Pressure 135/87 H Blood Pressure Mean 103 Pulse Ox 98 Oxygen Delivery Method [facility] <HOLLAND Cruz - Last Filed: 06/12/24 20:32> [facility] Narrative Medical decision making narrative: Differential: Normal postop pain, intra-abdominal abscess, perforation Patient is POD #3 after cholecystectomy presenting increased abdominal pain after she struck her abdomen against the edge of a table yesterday. She is tolerating p.o. intake and has bladder and bowel function. No fevers or chills or constitutional symptoms. She appears well and nontoxic. Abdomen is soft with RUQ tenderness but no peritoneal signs. Laparoscopic incisions look good. CBC shows normal white count of 8.8 and hemoglobin 11.7 which is higher than previous. She has normal electrolytes and renal function. Liver enzymes are trending down from the elevation prior to surgery. CT scan shows no acute findings but does note constipation. Patient states she has been taking senna with the Nehalem but is now out of pain pills. I recommended she switch to Tylenol and continue stool softeners as constipation could be contributing to her pain. She should follow-up with her surgeon and was discharged in stable condition. Lab Data Attestation: I reviewed the patient's lab results. Labs: Laboratory Results - last 24 hr 06/12/24 19:30 WBC 8.8 RBC 4.04 L Hgb 11.7 L Hct 35.6 L MCV 88.1 MCH 29.0 MCHC 32.9 RDW Std Deviation 44.0 H RDW Coeff of Elliott 13.5 Plt Count 239 MPV 9.8 Immature Gran % (Auto) 0.200 Neut % (Auto) 60.2 Lymph % (Auto) 28.0 Blount % (Auto) 8.0 Eos % (Auto) 3.4 Baso % (Auto) 0.2 Absolute Neuts (auto) 5.3 Absolute Lymphs (auto) 2.45 Nucleated RBC % 0 Sodium 136 Potassium 3.7 Chloride 98 Carbon Dioxide 31.0 Anion Gap 7 BUN 11 Creatinine 0.61 Estim Creat Clear Calc 116.45 Est GFR (MDRD) Af Amer 149 Est GFR (MDRD) Non-Af 123 BUN/Creatinine Ratio 18.2 Glucose 100 Calcium 9.3 Total Bilirubin 0.70 AST 47 H ALT 133 H Alkaline Phosphatase 147 H Total Protein 6.9 Albumin 3.3 Globulin 3.6 Albumin/Globulin Ratio 0.9 Lipase 12 L Radiography Diagnostic Testing: Clinical Impression(s) from Imaging Studies Abdomen/Pelvis CT 06/12/24 19:29 IMPRESSION: Moderate stool throughout the colon which may represent constipation. No other acute abnormalities are identified. Electronically Signed: Jerad Everett MD at 20:08 EST , <Dr. Kana Phan, DO - Last Filed: 06/12/24 21:24> [facility] Lab Data Labs: Laboratory Results - last 24 hr 06/12/24 19:30 WBC 8.8 RBC 4.04 L Hgb 11.7 L Hct 35.6 L MCV 88.1 MCH 29.0 MCHC 32.9 RDW Std Deviation 44.0 H RDW Coeff of Elliott 13.5 Plt Count 239 MPV 9.8 Immature Gran % (Auto) 0.200 Neut % (Auto) 60.2 Lymph % (Auto) 28.0 [place] % (Auto) 8.0 Eos % (Auto) 3.4 Baso % (Auto) 0.2 Absolute Neuts (auto) 5.3 Absolute Lymphs (auto) 2.45 Nucleated RBC % 0 Sodium 136 Potassium 3.7 Chloride 98 Carbon Dioxide 31.0 Anion Gap 7 BUN 11 Creatinine 0.61 Estim Creat Clear Calc 116.45 Est GFR (MDRD) Af Amer 149 Est GFR (MDRD) Non-Af 123 BUN/Creatinine Ratio 18.2 Glucose 100 Calcium 9.3 Total Bilirubin 0.70 AST 47 H ALT 133 H Alkaline Phosphatase 147 H Total Protein 6.9 Albumin 3.3 Globulin 3.6 Albumin/Globulin Ratio 0.9 Lipase 12 L Radiography Diagnostic Testing: Clinical Impression(s) from Imaging Studies Abdomen/Pelvis CT 06/12/24 19:29 IMPRESSION: Moderate stool throughout the colon which may represent constipation. No other acute abnormalities are identified. Electronically Signed: Jerad Everett MD at 20:08 EST , Treatment and Re-Evaluation :: I have personally performed a face to face assessment of the patient and have reviewed the BRITT Note. I performed a substantive portion of the visit including all aspects of the following. My arambula findings include: History: Patient presents with abdominal pain that began today. Patient states has been constant. Patient states she hit her abdomen yesterday. Patient states she had cholecystectomy done 3 days ago. Patient states her pain is mainly over the right upper abdomen. Patient describes it as sharp. Patient states nothing makes it better nothing makes it worse. Patient admits to some nausea but denies any vomiting. Patient denies any fevers or chills. Patient denies any urinary complaints. Exam: Vital signs are stable except for mild tachycardia 106. Patient is afebrile. Patient is in no acute distress. Oral mucosa is pink and moist. Neck is supple. Trachea is midline. There is no JVD. Heart was regular mildly tachycardic. Lungs are clear and equal bilaterally. There is adequate respiratory effort noted. Abdomen is soft. Bowel sounds are somewhat hypoactive. There is diffuse tenderness. There is no rebound or guarding noted. Cranial nerves II through XII are intact. There are no focal motor or sensory deficits noted. Medical Decision Making: Differential diagnosis includes perforation, obstruction, abscess, bile leak, peptic ulcer disease, duodenal ulcer, and pancreatitis. CBC will be obtained to assess for leukocytosis and anemia. Comprehensive metabolic profile will be obtained to assess for hepatic function, renal function, and electrolyte abnormality. Lipase will be obtained to assess for pancreatitis. CT scan of the abdomen pelvis will be obtained to assess for obstruction, perforation, and bleeding. CT scan of the abdomen and pelvis was obtained. There is no evidence of perforation or obstruction. There is no free fluid or free air. There is moderate stool throughout the colon. This was interpreted by the radiologist and was also independently reviewed by myself. CBC was reviewed. There is a slight anemia with a hemoglobin of 11.7 and hematocrit of 35.6. The remainder is within normal limits. Comprehensive metabolic profile was reviewed. AST was slightly elevated at 47 and ALT was slightly elevated at 133. Alkaline phosphatase was slightly elevated at 147. The remainder is within normal limits. Lipase was reviewed and was normal at 12. Patient was advised of her findings. Patient was instructed to eat a high-fiber diet. Patient was instructed to follow-up with her primary care physician and surgeon as scheduled. Patient understood and was agreeable with the plan. All questions were answered. Discharge Plan Triage Chief Complaint: Wound Check Other Complaint: Abd Pain ED Midlevel Provider: Stephanie Guardado ED Provider: Kana Phan Dx/Rx/DC Orders Clinical Impression: Abdominal pain, Status post cholecystectomy Instructions: After Gallbladder Surgery Prescriptions: No Action escitalopram oxalate [Lexapro] 10 mg tablet 10 mg PO DAILY metoclopramide HCl [Reglan] 10 mg tablet 10 mg PO Q6H PRN (Reason: nausea and vomiting) Qty: 14 0RF Creon 36,000-114,000- 180,000 unit capsule,delayed release(DR/EC) 1 cap PO TID Vraylar 1.5 mg capsule 1.5 mg PO DAILY ondansetron 4 mg tablet,disintegrating 4 mg PO Q6H PRN (Reason: nausea and vomiting) Qty: 15 0RF dicyclomine 10 mg capsule 20 mg PO TID PRN (Reason: abdominal pain) Qty: 20 0RF Primary Care Provider: Susanna Torres Referrals: Susanna Torres, [facility] [Primary Care Provider] - Activity Restrictions/Additional Instructions: The CT scan shows constipation but no other abnormalities. Further narcotics will only make constipation worse. I recommend you take stool softeners like Colace and MiraLAX to have regular bowel movements and Tylenol for pain. Follow-up with your surgeon. Print Language: Uzbek Disposition Disposition: Home, Self Care Discharge Date/Time: 06/12/24 20:28
--- NOTE | 2024-06-12 19:29 | CT_ITS ---
EXAM: CT ABDOMEN AND PELVIS WITH INTRAVENOUS CONTRAST CLINICAL INDICATION: pain TECHNIQUE: Helically acquired images were obtained of the abdomen and pelvis with intravenous contrast. This CT exam was performed using one or more of the following dose reduction techniques: automated exposure control, adjustment of the mA and/or kV according to patient size, and/or use of iterative reconstruction technique. CONTRAST: IV 100mL [id number] COMPARISON: 06/07/2024 FINDINGS: LOWER THORAX: Unremarkable. Lung bases are clear. No cardiomegaly. No significant pericardial effusion. ABDOMEN: LIVER: Unremarkable. Homogeneous. No focal mass. GALLBLADDER AND BILE DUCTS: Unremarkable. No calcified gallstones. No gallbladder distention or wall edema. No intra- or extrahepatic biliary ductal dilation. PANCREAS: Unremarkable. No focal cystic or solid mass. SPLEEN: Unremarkable. Normal size without focal cystic or solid mass. ADRENALS: Unremarkable. No nodules. KIDNEYS AND URETERS: Unremarkable. Normal renal size and position. No hydronephrosis. STOMACH AND BOWEL: There is moderate stool the colon which may represent constipation. No stomach or bowel distention. No focal inflammatory change. PELVIS: APPENDIX: No evidence of acute appendicitis. BLADDER: Unremarkable. REPRODUCTIVE: Unremarkable as visualized. No mass. ABDOMEN and PELVIS: INTRAPERITONEAL SPACE: Unremarkable. No ascites or other fluid collection. No free air. BONES/JOINTS: Unremarkable. No suspicious lytic or blastic abnormality. SOFT TISSUES: Unremarkable. No discrete abdominal or pelvic wall hernia. VASCULATURE: Unremarkable. Abdominal aorta is non-dilated. LYMPH NODES: Unremarkable. No enlarged lymph nodes. CT/Abdomen/Pelvis W IV Cont ONLY IMPRESSION: Moderate stool throughout the colon which may represent constipation. No other acute abnormalities are identified. Electronically Signed: Jerad Everett MD at 20:08 [facility] ,
[2024-06-12 19:39] LABS: Absolute Lymphocyte Count 2.45 X10^3/uL (0.83-4.51); Absolute Neutrophil Count 5.3 X10^3/uL (2.0-7.7); Basophil# 0.02 X10^3/uL; Basophil% 0.2 % (0-1); Eosinophils% 3.4 % (0-5); Hematocrit 35.6 % (37-47); Hemoglobin 11.7 g/dL (12.0-15.0); Lymphocyte # 2.45 X10^3/ul (0.83-4.51); Mean Corp Hgb Conc 32.9 g/dL (32-36); Mean Corpuscular Volume 88.1 fL (81-99); Mean Platelet Vol. 9.8 fl (6.2-12.0); NRBC Flagged by Analyzer 0 % (0-5); Neutrophil # 5.26 X10^3/uL (2.7-7.7); Neutrophil % 60.2 % (47-70); Platelet Count 239 K/mm3 (150-450); RBC Distribution Width CV 13.5 % (11.6-14.6); Red Blood Count 4.04 M/mm3 (4.2-5.4); White Blood Count 8.8 K/mm3 (4.4-11.0)
[2024-06-12 19:56] VITALS: BP 135/87; PULSE 89; RESP 17; TEMP 35.7; O2SAT 98
[2024-06-12 19:57] LABS: ALB/GLOB Ratio 0.9 RATIO (0.9-2.4); AST(SGOT) 47 U/L (15-37); Alanine Aminotransfer ALT/SGPT 133 U/L (13-56); Albumin, Serum 3.3 g/dL (3.2-5.0); Alkaline Phosphatase 147 U/L (45-117); Anion Gap 7 (5-15); BUN 11 mg/dL (7-18); BUN/Creat Ratio 18.2 RATIO (10-20); Calcium,Total 9.3 mg/dL (8.5-10.1); Chloride 98 mmol/L (98-107); Creatinine, Serum 0.61 mg/dL (0.55-1.02); EST Glomerular Filtration Rate 123 mL/min (>60); Est Glom Filt Rate - Afr Amer 149 mL/min (>60); Estimated Creatinine Clearance 116.45 ml/min; Globulin 3.6 g/dL (2.2-4.2); Glucose 100 mg/dL (74-106); Lipase 12 U/L (13-75); Potassium 3.7 mmol/L (3.5-5.1); Protein, Total 6.9 g/dL (6.4-8.2); Sodium Level 136 mmol/L (136-145)
[2024-06-12 20:23] VITALS: BP 135/87; PULSE 89; RESP 17; TEMP 35.7; O2SAT 98
== END 2024-06-12 20:28 | disposition home or self-care (01) ==
PROVIDERS: Physician Assistant; Emergency Provider Emergency Medicine; PCP Nurse Practitioner Family; Visit Provider Emergency Medicine
DX: R10.11 Right upper quadrant pain (principal); F17.210 Nicotine dependence, cigarettes, uncomplicated; Z90.49 Acquired absence of other specified parts of digestive tract
CPT/HCPCS: 74177; 80053; 83690; 85025; 99284; Q9967; A4216

== ENCOUNTER 2024-08-15 17:06 | Emergency (ER) | payer MEDICAID, SELFPAY ==
[2024-08-15] VITALS (8 sets, daily range): BP systolic 94–119; BP diastolic 59–80; PULSE 60–93; RESP 16–20; TEMP 36.6; O2SAT 95–98; BMI 22.1
--- NOTE | 2024-08-15 17:33 | EX.ED.DYSGE1 ---
HPI History of Present Illness Chief Complaint: Suicidal [facility] Medical History Vaginal delivery History of cocaine abuse 38 weeks gestation of PROM (premature rupture of membranes) Ovarian cyst Depression affecting Family history of malignant hyperthermia Hiatal hernia Tonsillectomy planned hemorrhage Depression Anxiety Pancreatitis Home Medications ?Medication ?Instructions ?Recorded ?Last Taken ?Type metoclopramide HCl 10 mg tablet 10 mg PO Q6H PRN nausea and 01/19/24 Unknown Rx (Reglan) vomiting #14 tabs cariprazine 1.5 mg capsule 1.5 mg PO DAILY 06/07/24 Unknown History (Vraylar) dicyclomine 10 mg capsule 20 mg (2 x 10 mg) PO TID PRN 06/07/24 Unknown Rx abdominal pain #20 caps doqavv-uxqdqney-mujococ 1 cap PO TID 06/07/24 Unknown History 36,000-114,000-180,000 unit capsule,delay rel (Creon) ondansetron 4 mg disintegrating 4 mg PO Q6H PRN nausea and 06/07/24 Unknown Rx tablet vomiting #15 tabs escitalopram oxalate 20 mg tablet 20 mg PO DAILY 08/15/24 Unknown History Allergy/AdvReac Type Severity Reaction Status Date / Time oxycodone (From Percocet) Allergy Severe Angioedema Verified 08/15/24 17:09 fructose AdvReac Mild Upset Verified 08/15/24 17:09 Stomach Family History Grandmother Malignant hyperthermia Surgical History History of adenoidectomy History of appendectomy Social History household members: spouse and children Smoking Status: Current every day smoker tobacco type: cigarettes substance use type: does not use EXAM Physical Exam Const Vital Signs: 08/15/24 17:06 08/15/24 18:06 08/15/24 19:03 Temperature 98 F Temperature Source Oral Pulse Rate 93 74 74 Respiratory Rate 16 18 18 Blood Pressure 119/80 102/75 95/68 Blood Pressure Mean 93 84 77 Pulse Ox 98 98 97 Oxygen Delivery Method Room Air Room Air Room Air 08/15/24 19:42 Temperature Temperature Source Pulse Rate 71 Respiratory Rate 20 H Blood Pressure 109/76 Blood Pressure Mean 87 Pulse Ox 98 Oxygen Delivery Method Room Air [facility] Narrative Medical decision making narrative: HISTORY OF PRESENT ILLNESS: 29-year-old female presents concern for suicide ideation and suicide attempt. Notes she took an unknown quantity of her home Vraylar as well as Lexapro. Notes this occurred ~ 1 hour [place]NUCKLER. Patient notes she has been off her medications which is why she tried to kill herself today. She denies any other drug use. Denies taking any Tylenol or salicylates. Denies auditory visual hallucinations. Denies homicidal ideation. REVIEW OF SYSTEMS: Pertinent positives: Suicidal ideation, nausea Pertinent negatives: Chest pain, shortness of breath, vomiting PHYSICAL EXAM: Nursing triage notes reviewed, Vital signs reviewed Constitutional: please see [facility] HENT: MMM Eyes: Pupils equal round and reactive to light, Extraocular muscles intact Neck: No stridor, no JVD, full neck ROM Lungs: Clear to auscultation, No wheezing or rales. No increased work of breathing, no conversational dyspnea, no accessory muscle use, no nasal flaring. No respiratory distress noted Heart: Regular rate and rhythm, No murmurs, No rubs and No gallops, 2+ distal pulses (radial, femoral, posterior tibial) in all extremities Abdomen: Soft, there is no tenderness, rigidity, rebound or guarding, no obvious peritoneal signs, no palpable pulsatile abdominal masses, no auscultated abdominal bruit : No CVAT Extremities: No edema Neuro: No new focal neurological deficits, cranial nerves II through XII intact, 5/5 strength in all present extremities. Intact sensation to light touch in all present extremities, 2+ reflexes bilateral patella tendons. Skin: No rash or lesions noted Psych: Calm, tearful, goal-directed thought process, does not appear to be responding to internal stimuli MEDICAL DECISION MAKING: Chief Complaint: Suicidal ideation External records reviewed: reviewed medications. Patient takes 10 mg of Lexapro daily and 1.5 mg Vraylar daily. Both regular/normal release Factors affecting care: depression Social determinants of health: none History obtained from others: none Consults: none [facility] Narrative: Patient was initially hemodynamically stable, afebrile and nontoxic-appearing. Exam unremarkable. I considered the following differential diagnosis: Toxic ingestion, metabolic acidosis, arrhythmia, QTc widening, QRS widening. Medical clearance labs were obtained. Patient was kept on the monitor. Poison control consulted (recommended observation for at least 5 hours as this is the peak effect window for vraylar). ALL IMAGES (IF OBTAINED) HAVE BEEN PERSONALLY REVIEWED AND INTERPRETED BY MYSELF. EKG with normal sinus rhythm, normal axis, normal intervals, no STEMI, QTc 412, QRS 88. CBC without leukocytosis, severe anemia, no thrombocytopenia. BMP without evidence of significant electrolyte abnormalities, no anion gap, no acute kidney injury. Serum salicylate negative, serum Tylenol negative Urine tox screen positive for amphetamine, THC The patient and/or family, caregivers express understanding. The patient and/or family, caregivers agrees with the plan. Shared decision making: I will have a discussion with the patient and or visitors regarding risk/benefits of further testing or admission. They will be made aware of of the risk/benefits inherent in this decision they will be given the opportunity to voice understanding. Total critical care time today provided was at least 0 minutes. This excludes separately billable procedures. Critical care time (if documented) is secondary to the patient having high probability of clinically significant/life threatening deterioration in the patient's condition which required my urgent intervention. Impression: 1. Suicidal ideation 2. Suicide attempt Dispo: admit This note was generated with [employer] dictation software. It may contain incorrect words, spelling, and punctuation that were not noted in review of the chart prior to signing. Lab Data Labs: Laboratory Results - last 24 hr 08/15/24 08/15/24 17:29 17:32 WBC 7.3 RBC 4.71 Hgb 13.5 Hct 40.3 MCV 85.6 MCH 28.7 MCHC 33.5 RDW Std Deviation 37.2 RDW Coeff of Elliott 11.9 Plt Count 183 MPV 10.8 Immature Gran % (Auto) 0.100 Neut % (Auto) 54.2 Lymph % (Auto) 34.9 Calhoun % (Auto) 7.1 Eos % (Auto) 3.0 Baso % (Auto) 0.7 Absolute Neuts (auto) 4.0 Absolute Lymphs (auto) 2.55 Nucleated RBC % 0 Sodium 140 Potassium 3.8 Chloride 107 Carbon Dioxide 30.0 Anion Gap 3 L BUN 6 L Creatinine 0.56 Estim Creat Clear Calc 126.85 Est GFR (MDRD) Af Amer 165 Est GFR (MDRD) Non-Af 136 BUN/Creatinine Ratio 10.8 Glucose 68 L Calcium 9.1 Serum , Qual NEGATIVE Salicylates 2.6 L Urine Opiates Screen NEGATIVE Urine Methadone Screen NEGATIVE Acetaminophen 2.1 L Ur Barbiturates Screen NEGATIVE Ur Phencyclidine Scrn NEGATIVE Ur Amphetamines Screen POSITIVE H MDMA (Ecstasy) Screen NEGATIVE U Benzodiazepines Scrn NEGATIVE Urine Cocaine Screen NEGATIVE U Cannabinoids Screen POSITIVE H Ur Drug Screen Comment Ethyl Alcohol < 3.0 Discharge Plan Triage Chief Complaint: Suicidal ED Provider: Agustín Patel Dx/Rx/DC Orders Prescriptions: No Action metoclopramide HCl [Reglan] 10 mg tablet 10 mg PO Q6H PRN (Reason: nausea and vomiting) Qty: 14 0RF Creon 36,000-114,000- 180,000 unit capsule,delayed release(DR/EC) 1 cap PO TID Vraylar 1.5 mg capsule 1.5 mg PO DAILY ondansetron 4 mg tablet,disintegrating 4 mg PO Q6H PRN (Reason: nausea and vomiting) Qty: 15 0RF dicyclomine 10 mg capsule 20 mg PO TID PRN (Reason: abdominal pain) Qty: 20 0RF escitalopram oxalate 20 mg tablet 20 mg PO DAILY Primary Care Provider: Susanna Torres Referrals: Susanna Torres, CONTACT CLERK-C [Primary Care Provider] - Print Language: Polish
--- NOTE | 2024-08-15 17:34 | EKG12_ITS ---
Test Reason : ARRYTH Blood Pressure : */* mmHG Vent. Rate : 73 BPM Atrial Rate : 73 BPM P-R Int : 140 ms QRS Dur : 88 ms QT Int : 374 ms P-R-T Axes : 63 91 74 degrees QTcB Int : 412 ms Normal sinus rhythm Rightward axis Borderline ECG Confirmed by MAKENZIE YEUNG, RICHA ([id number]), city editor JOHN PATEL ([id number]) on 08/18/2024 6:13:06 AM Referred By: Confirmed By: RICHA BANEGAS MD
[2024-08-15 17:39] LABS: Absolute Lymphocyte Count 2.55 X10^3/uL (0.83-4.51); Basophil# 0.05 X10^3/uL; Basophil% 0.7 % (0-1); Eosinophil# 0.22 X10^3/uL; Hematocrit 40.3 % (37-47); Hemoglobin 13.5 g/dL (12.0-15.0); Lymphocyte # 2.55 X10^3/ul (0.83-4.51); Lymphocyte % 34.9 % (19-41); Mean Corp Hgb Conc 33.5 g/dL (32-36); Mean Corpuscular Hgb 28.7 pg (27.0-32.0); Mean Corpuscular Volume 85.6 fL (81-99); Mean Platelet Vol. 10.8 fl (6.2-12.0); Monocyte# 0.52 X10^3/uL; Monocyte% 7.1 % (0-10); NRBC Flagged by Analyzer 0 % (0-5); Neutrophil # 3.95 X10^3/uL (2.7-7.7); Neutrophil % 54.2 % (47-70); Platelet Count 183 K/mm3 (150-450); RBC Distribution Width CV 11.9 % (11.6-14.6); RBC Distribution Width SD 37.2 fl (35.1-43.9); Red Blood Count 4.71 M/mm3 (4.2-5.4); White Blood Count 7.3 K/mm3 (4.4-11.0)
[2024-08-15 17:55] LABS: Internal QC Validated? YES +Cl - CLEAR BKGD; Pregnancy, Serum, hCG Quali. NEGATIVE Negative
[2024-08-15 17:57] LABS: Alcohol, Blood (Medical)-Serum < 3.0 mg/dL; Anion Gap 3 (5-15); BUN 6 mg/dL (7-18); BUN/Creat Ratio 10.8 RATIO (10-20); Calcium,Total 9.1 mg/dL (8.5-10.1); Chloride 107 mmol/L (98-107); Creatinine, Serum 0.56 mg/dL (0.55-1.02); EST Glomerular Filtration Rate 136 mL/min (>60); Est Glom Filt Rate - Afr Amer 165 mL/min (>60); Estimated Creatinine Clearance 126.85 ml/min; Glucose 68 mg/dL (74-106); Potassium 3.8 mmol/L (3.5-5.1); Sodium Level 140 mmol/L (136-145)
[2024-08-15 18:02] LABS: Amphetamine Urine POSITIVE (<1000 ng/mL); Barbiturate Urine VISTA NEGATIVE (< 200 ng/mL); Benzodiazepine Urine VISTA NEGATIVE (< 200 ng/mL); Cocaine Urine VISTA NEGATIVE (< 300 ng/mL); Ecstacy Urine VISTA NEGATIVE (< 500 ng/mL); Methadone Urine VISTA NEGATIVE (< 300 ng/mL); PCP Urine VISTA NEGATIVE (< 25 ng/mL); THC Urine VISTA POSITIVE (< 50 ng/mL); Vista UDS pH Range 5
[2024-08-15 18:14] LABS: Acetaminophen (Tylenol) Level 2.1 ug/mL (10.0-30.0); Salicylate 2.6 mg/dL (2.8-20.0)
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
--- NOTE | 2024-08-15 19:48 | EKG12_ITS ---
Test Reason : DYSRHYTHMIA Blood Pressure : */* mmHG Vent. Rate : 70 BPM Atrial Rate : 70 BPM P-R Int : 140 ms QRS Dur : 90 ms QT Int : 398 ms P-R-T Axes : 66 91 75 degrees QTcB Int : 429 ms Normal sinus rhythm Rightward axis Borderline ECG Confirmed by MAKENZIE YEUNG, RICHA ([id number]), supervising editor news reel JOHN PATEL ([id number]) on 08/18/2024 6:14:13 AM Referred By: Confirmed By: RICHA BANEGAS MD
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
--- NOTE | 2024-08-15 21:52 | CM.ED ---
Social Work: hoe worker faxed over referral packet to [facility] to assist with securing placement for patient. hoe worker attempted to provide update to patient however patient was sleeping. hoe worker did not attempt to wake patient. Josi Torres, SECURITY DIRECTOR, DATA ARCHITECT
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
--- NOTE | 2024-08-16 00:52 | ED.RN ---
[facility] CALLED, SPOKE WITH JOHANA. PT ACCEPTED TO [facility], [address], [address], NTN# [phone]. [facility]ED [facility], SPOKE TO MATT. ABARCA 30-60 MIN ([phone]).
[2024-08-16 02:00] VITALS: BP 118/67; PULSE 72; RESP 18; TEMP 36.7; O2SAT 100
--- NOTE | 2024-08-16 10:57 | ED.RN ---
poison controlled called to check on pt.
--- NOTE | 2024-10-25 12:10 | CM.ED ---
Social Work: Utilities Operator received correspondence letter from [facility] dated 10/07/24 indicating that there is not a need for ongoing child protective services. Josi Torres, DISPLAY MECHANIC, FILTER WORKER
== END 2024-08-16 02:02 | disposition short-term general hospital (02) ==
PROVIDERS: Emergency Provider Emergency Medicine; PCP Nurse Practitioner Family; Visit Provider Emergency Medicine
DX: T14.91XA Suicide attempt, initial encounter (principal); F17.210 Nicotine dependence, cigarettes, uncomplicated; Z79.899 Other long term (current) drug therapy; X58.XXXA Exposure to other specified factors, initial encounter
CPT/HCPCS: 80048; 80143; 80179; 80307; 82077; 84703; 85025; 93005; 99285; A4216

== ENCOUNTER 2024-09-06 01:02 | Emergency (ER) | payer MEDICAID, SELFPAY ==
[2024-09-06 01:02] VITALS: BP 118/75; PULSE 94; RESP 16; TEMP 36.4; O2SAT 99; BMI 22.1
--- NOTE | 2024-09-06 01:20 | EX.ED.DYSGE1 ---
HPI History of Present Illness Chief Complaint: Ear Problem Informant: patient Narrative Narrative: Patient is a 29-year-old female with past medical history of depression and anxiety. She states roughly 1 week ago she was diagnosed with influenza. She reports that after 7 days this resolved during the last 3 days she has been having right sided ear pressure pain and a popping sensation. She states the pain and popping sensation are worsening and she has concern for potential infection and therefore comes in for evaluation. [facility] Medical History Vaginal delivery History of cocaine abuse 38 weeks gestation of PROM (premature rupture of membranes) Ovarian cyst Depression affecting Family history of malignant hyperthermia Hiatal hernia Tonsillectomy planned hemorrhage Depression Anxiety Pancreatitis Home Medications ?Medication ?Instructions ?Recorded ?Last Taken ?Type metoclopramide HCl 10 mg tablet 10 mg PO Q6H PRN nausea and 01/19/24 Unknown Rx (Reglan) vomiting #14 tabs cariprazine 1.5 mg capsule 3 mg PO DAILY 06/07/24 Unknown History (Vraylar) ondansetron 4 mg disintegrating 4 mg PO Q6H PRN nausea and 06/07/24 Unknown Rx tablet vomiting #15 tabs amoxicillin 875 mg-potassium 1 tab PO BID 10 days #20 tabs 09/06/24 Unknown Rx clavulanate 125 mg tablet hydrocodone-acetaminophen 5-325mg 1 tab PO Q6H PRN PRN Pain 3 days 09/06/24 Unknown Rx 5mg-325mg #12 TABLETS lithium carbonate 300 mg capsule 300 mg PO BID 09/06/24 Unknown History prednisone 20 mg tablet 40 mg (2 x 20 mg) PO DAILY 7 days 09/06/24 Unknown Rx #14 tabs trazodone 50 mg tablet 50 mg PO QHS 09/06/24 Unknown History Allergy/AdvReac Type Severity Reaction Status Date / Time oxycodone (From Percocet) Allergy Severe Angioedema Verified 08/15/24 17:09 fructose AdvReac Mild Upset Verified 08/15/24 17:09 Stomach Family History Grandmother Malignant hyperthermia Surgical History History of adenoidectomy History of appendectomy Social History household members: spouse and children Smoking Status: Current every day smoker tobacco type: cigarettes substance use type: does not use ROS ROS ED Constitutional Constitutional ED: Denies chills or fever(s) Eyes Eyes: Denies change in vision ENT ENT ED: Reports ear pain right and rhinorrhea; Denies sore throat Cardiovascular Cardiovascular: Denies chest pain Respiratory/Chest Respiratory/Chest: Denies cough or dyspnea Gastrointestinal Gastrointestinal: Denies abdominal pain, diarrhea, nausea or vomiting Genitourinary Genitourinary ED: Denies dysuria Musculoskeletal Musculoskeletal: Denies myalgias Integumentary Denies rash Neurologic Neurologic: Reports headache(s) Psychiatric Psychiatric: Reports anxiety and depression Hematologic/Lymphatic Hematologic/Lymphatic: Denies easy bleeding or easy bruising Allergic/Immunologic Allergic/Immunologic ED: Denies mouth swelling or tongue swelling EXAM Physical Exam Const Vital Signs: 09/06/24 01:02 Temperature 97.6 F L Temperature Source Oral Pulse Rate 94 Respiratory Rate 16 Blood Pressure 118/75 Blood Pressure Mean 89 Pulse Ox 99 Oxygen Delivery Method Room Air Positive well nourished and well developed General Appearance ED: well developed; Negative for pallor HEENT HEENT Narrative: Nasal mucosa is hyperemic and boggy There is cobblestoning noted in the posterior pharynx consistent with sinus drainage Left canal and TM are normal Right canal is normal but the TM is erythematous and bulging with loss of landmarks consistent with acute otitis media. No obvious TM perforation noted at this time. Eyes PERRL and EOMs intact bilaterally General Eye ED: Negative for scleral icterus Neck supple Neck Narrative: No nuchal rigidity or meningeal signs Resp normal respiratory effort and clear to auscultation bilaterally Cardio regular rate and regular rhythm Extremity normal to inspection Neuro oriented x3, CN's II-XII intact bilaterally and no sensory deficits noted Sensorium / Orientation: alert Motor Exam: strength 5/5 throughout Psych Mood & Affect: anxious Skin no rashes or lesions noted General Skin Exam: Negative for jaundice or pallor MDM MDM MDM Narrative Medical decision making narrative: Patient arrived to the ER with stable vitals. She reported a recent diagnosis of influenza. With her now right-sided ear pain there is concern for otitis media versus otitis externa versus eustachian tube dysfunction. Physical exam does not show changes concerning for otitis externa or mastoiditis or malignant otitis externa. However it does show changes consistent with acute otitis media. Secondary to this patient will be started on antibiotics and steroids to reduce pressure and resolve the infection. However his vitals are stable and neurologic exam normal and there is no signs of systemic involvement there is no need for imaging or laboratory studies and she is otherwise safe for discharge History & Record Review Discussion w/independent historian: Patient Discharge Plan Triage Chief Complaint: Ear Problem ED Provider: Berny Baez Dx/Rx/DC Orders Clinical Impression: Acute right otitis media, Anxiety and depression Instructions: ED Otitis Media Adult Prescriptions: New amoxicillin-pot clavulanate 875-125 mg tablet 1 tab PO BID 10 Days Qty: 20 0RF prednisone 20 mg tablet 40 mg PO DAILY 7 Days Qty: 14 0RF hydrocodone-acetaminophen 5-325 mg tablet 1 tab PO Q6H PRN PRN (Reason: Pain) 3 Days Qty: 12 0RF No Action metoclopramide HCl [Reglan] 10 mg tablet 10 mg PO Q6H PRN (Reason: nausea and vomiting) Qty: 14 0RF Vraylar 1.5 mg capsule 3 mg PO DAILY ondansetron 4 mg tablet,disintegrating 4 mg PO Q6H PRN (Reason: nausea and vomiting) Qty: 15 0RF lithium carbonate 300 mg capsule 300 mg PO BID trazodone 50 mg tablet 50 mg PO QHS Primary Care Provider: Susanna Torres Referrals: Zac Harper MD [Med Staff - Active Staff] - Susanna Torres LOGISTICS SYSTEM ENGINEER-C [Primary Care Provider] - Activity Restrictions/Additional Instructions: Your exam shows you have a right ear infection that is producing pressure on your eardrum which is the main cause of pain. Take the steroid to reduce pressure use antibiotic to resolve the infection. It will typically take 2 to 3 days for this to occur and therefore use the [place] for pain relief during that time. Follow-up with ENT to discuss need for further intervention such as tympanostomy tubes and return to the ER should you have any further concerns. Print Language: Sammarinese Disposition Disposition: Home, Self Care
[2024-09-06] MEDS: Amox/Clavulanate 875 MG Tablet PO (01:29)
[2024-09-06] MEDS: dexAMETHasone 10 MG/ML Vial PO.IVFORM (01:29)
[2024-09-06] MEDS: HYDROcodone Bitartrate/Apap 5/325 Tablet PO (01:29)
== END 2024-09-06 01:32 | disposition home or self-care (01) ==
PROVIDERS: Emergency Provider Emergency Medicine; PCP Nurse Practitioner Family; Visit Provider Emergency Medicine
DX: H66.91 Otitis media, unspecified, right ear (principal); F32.A Depression, unspecified; F41.9 Anxiety disorder, unspecified; F17.210 Nicotine dependence, cigarettes, uncomplicated; Z79.899 Other long term (current) drug therapy
CPT/HCPCS: 99282

== ENCOUNTER 2024-09-07 11:38 | Emergency (ER) | payer MEDICAID, SELFPAY ==
[2024-09-07 11:39] VITALS: BP 128/91; PULSE 101; RESP 18; TEMP 36.4; O2SAT 100; BMI 22.6
--- NOTE | 2024-09-07 12:09 | EX.ED.VIS.UR ---
HPI HPI - URI History of Present Illness Chief Complaint: Ear Problem Narrative Narrative: Presenting today with concerns for right ear pain that started about 3 days ago. She was seen here in the emergency department yesterday and was diagnosed with right otitis media and was placed on Augmentin and prednisone. She was given a course of Rew for pain. This morning, she followed up with Dr. Cronin who told her that she had a small perforation in her right TM and extended her antibiotic course once she is finished with the Augmentin. She was told that if her symptoms do not resolve during her follow-up in 3 weeks she may need ear tubes and to return to the emergency department for any worsening pain. She reports that her pain is not under control despite taking Vicodin, Tylenol, and ibuprofen. She reports a history of frequent ear infections due to her history of GERD. She denies fevers or chills. ROS ROS ED Constitutional Constitutional ED: Denies chills or fever(s) ENT ENT ED: Reports ear pain right Cardiovascular Cardiovascular: Denies chest pain Respiratory/Chest Respiratory/Chest: Denies dyspnea Gastrointestinal Gastrointestinal: Denies abdominal pain, nausea or vomiting Musculoskeletal Musculoskeletal: Denies arthralgias or myalgias Integumentary Denies rash Neurologic Neurologic: Denies weakness [facility] Medical History Vaginal delivery History of cocaine abuse 38 weeks gestation of PROM (premature rupture of membranes) Ovarian cyst Depression affecting Family history of malignant hyperthermia Hiatal hernia Tonsillectomy planned hemorrhage Depression Anxiety Pancreatitis Home Medications ?Medication ?Instructions ?Recorded ?Last Taken ?Type metoclopramide HCl 10 mg tablet 10 mg PO Q6H PRN nausea and 01/19/24 Unknown Rx (Reglan) vomiting #14 tabs cariprazine 1.5 mg capsule 3 mg PO DAILY 06/07/24 Unknown History (Vraylar) ondansetron 4 mg disintegrating 4 mg PO Q6H PRN nausea and 06/07/24 Unknown Rx tablet vomiting #15 tabs amoxicillin 875 mg-potassium 1 tab PO BID 10 days #20 tabs 09/06/24 Unknown Rx clavulanate 125 mg tablet hydrocodone-acetaminophen 5-325mg 1 tab PO Q6H PRN PRN Pain 3 days 09/06/24 Unknown Rx 5mg-325mg #12 TABLETS lithium carbonate 300 mg capsule 300 mg PO BID 09/06/24 Unknown History prednisone 20 mg tablet 40 mg (2 x 20 mg) PO DAILY 7 days 09/06/24 Unknown Rx #14 tabs trazodone 50 mg tablet 50 mg PO QHS 09/06/24 Unknown History hydrocodone-acetaminophen 5-325mg 1 tab PO Q4H PRN PRN Pain 2 days 09/07/24 Unknown Rx 5mg-325mg #7 TABLETS Allergy/AdvReac Type Severity Reaction Status Date / Time oxycodone (From Percocet) Allergy Severe Angioedema Verified 09/07/24 11:39 fructose AdvReac Mild Upset Verified 09/07/24 11:39 Stomach Family History Grandmother Malignant hyperthermia Surgical History History of adenoidectomy History of appendectomy Social History household members: spouse and children Smoking Status: Current every day smoker tobacco type: cigarettes substance use type: does not use EXAM Physical Exam Const Vital Signs: 09/07/24 11:39 Temperature 97.5 F L Temperature Source Temporal Pulse Rate 101 H Respiratory Rate 18 Blood Pressure 128/91 H Blood Pressure Mean 103 Pulse Ox 100 Oxygen Delivery Method Room Air Positive well nourished, well developed and no apparent distress General Appearance ED: well developed HEENT Reports normocephalic and head/scalp atraumatic HEENT Narrative: Right EAC clear, right TM bulging with serous fluid and perforation, no mastoid tenderness bilaterally. Left EAC and TM clear. Mouth ED: Yes moist mucous membranes normal Throat: posterior oropharynx normal Eyes PERRL and EOMs intact bilaterally Neck full ROM and supple Chest Wall inspection of chest normal Resp normal respiratory effort and clear to auscultation bilaterally Cardio regular rate and regular rhythm Back/Spine normal ROM and normal to inspection Extremity normal to inspection and full ROM Neuro oriented x3, CN's II-XII intact bilaterally, moves all extremities, no focal motor deficits and no sensory deficits noted Sensorium / Orientation: awake and alert Psych mental status grossly normal and thought process normal Skin no rashes or lesions noted and no wounds MDM MDM MDM Narrative Medical decision making narrative: Patient presenting today due to right sided ear pain she has had over the past 3 days or so. She was seen here early this morning and was diagnosed with right otitis media and was started on Augmentin, prednisone, and Rew for pain. She followed up with Dr. Cronin this morning who noticed a right TM perforation and extended her antibiotic course and recommended she return to the ED for any worsening pain. She reports that her pain is not under control despite taking Rew, Tylenol, and ibuprofen. She does have a right sided otitis media with serous fluid and small perforation. No mastoid tenderness. She is otherwise nontoxic-appearing and is afebrile. she does appear uncomfortable. She was given Rew and IM morphine here for pain. I did speak with Dr. Cronin, he does not have any further recommendations and recommends that she follow-up as an outpatient. I will give patient a few more Rew for home and she will be discharged home in stable condition. Discharge Plan Triage Chief Complaint: Ear Problem ED Midlevel Provider: Elaina Gallegos ED Provider: Jw Joy Dx/Rx/DC Orders Clinical Impression: Acute left otitis media, Right ear pain Instructions: ED Otitis Media Adult Prescriptions: New hydrocodone-acetaminophen 5-325 mg tablet 1 tab PO Q4H PRN PRN (Reason: Pain) 2 Days Qty: 7 0RF No Action metoclopramide HCl [Reglan] 10 mg tablet 10 mg PO Q6H PRN (Reason: nausea and vomiting) Qty: 14 0RF Vraylar 1.5 mg capsule 3 mg PO DAILY ondansetron 4 mg tablet,disintegrating 4 mg PO Q6H PRN (Reason: nausea and vomiting) Qty: 15 0RF lithium carbonate 300 mg capsule 300 mg PO BID trazodone 50 mg tablet 50 mg PO QHS amoxicillin-pot clavulanate 875-125 mg tablet 1 tab PO BID 10 Days Qty: 20 0RF prednisone 20 mg tablet 40 mg PO DAILY 7 Days Qty: 14 0RF hydrocodone-acetaminophen 5-325 mg tablet 1 tab PO Q6H PRN PRN (Reason: Pain) 3 Days Qty: 12 0RF Primary Care Provider: Susanna Torres Referrals: Susanna Torres, INCOME TAX PREPARER-C [Primary Care Provider] - Activity Restrictions/Additional Instructions: Follow-up with ENT. Print Language: Korean Disposition Disposition: Home, Self Care
[2024-09-07] MEDS: HYDROcodone Bitartrate/Apap 5/325 Tablet PO (13:08)
[2024-09-07] MEDS: morphine 10 MG/ML Syringe 8 MG IM (14:27)
[2024-09-07 14:28] VITALS: BP 114/78; PULSE 85; RESP 16; TEMP 36.7; O2SAT 100
== END 2024-09-07 14:40 | disposition home or self-care (01) ==
PROVIDERS: Emergency Provider Emergency Medicine; PCP Nurse Practitioner Family; Referring Provider Emergency Medicine; Visit Provider Emergency Medicine
DX: H65.01 Acute serous otitis media, right ear (principal); H72.91 Unspecified perforation of tympanic membrane, right ear; F17.210 Nicotine dependence, cigarettes, uncomplicated
CPT/HCPCS: 96372; 99282

== ENCOUNTER 2024-10-02 17:36 | Emergency (ER) | payer MEDICAID, SELFPAY ==
[2024-10-02 17:36] VITALS: BP 211/193; PULSE 114; RESP 26; TEMP 36.7; O2SAT 100; BMI 22.3
[2024-10-02 17:57] LABS: Absolute Lymphocyte Count 2.71 X10^3/uL (0.83-4.51); Absolute Neutrophil Count 15.6 X10^3/uL (2.0-7.7); Basophil# 0.05 X10^3/uL; Basophil% 0.3 % (0-1); Eosinophil# 0.07 X10^3/uL; Eosinophils% 0.4 % (0-5); Hematocrit 45.2 % (37-47); Lymphocyte # 2.71 X10^3/ul (0.83-4.51); Lymphocyte % 14.1 % (19-41); Mean Corp Hgb Conc 33.2 g/dL (32-36); Mean Corpuscular Hgb 28.5 pg (27.0-32.0); Mean Corpuscular Volume 85.8 fL (81-99); Mean Platelet Vol. 10.5 fl (6.2-12.0); Monocyte# 0.75 X10^3/uL; Monocyte% 3.9 % (0-10); NRBC Flagged by Analyzer 0 % (0-5); Neutrophil # 15.59 X10^3/uL (2.7-7.7); Neutrophil % 80.7 % (47-70); Platelet Count 375 K/mm3 (150-450); RBC Distribution Width CV 14.5 % (11.6-14.6); RBC Distribution Width SD 45.8 fl (35.1-43.9); Red Blood Count 5.27 M/mm3 (4.2-5.4); White Blood Count 19.3 K/mm3 (4.4-11.0)
--- NOTE | 2024-10-02 18:02 | CT_ITS ---
PROCEDURE: ABDOMEN/PELVIS W IV CONT ONLY 10/02/2024 REASON FOR EXAM: ABD PAIN TECHNIQUE: Abdomen CT without and with intravenous contrast. Coronal and Sagittal reconstruction series were provided. PATIENT PREPARATION: Per protocol ORAL CONTRAST TYPE: None. CONTRAST: Isovue 370 VOLUME: 100ML One or more dose reduction techniques were used (e.g., Automated exposure control, adjustment of the mA and/or kV according to patient size, use of iterative reconstruction technique. RADIATION DOSE SUMMARY: CTDlvol: 7.19 mGy DLP: 359.89 mGycm COMPARISON: 06/12/2024 FINDINGS: Lung bases: Unremarkable. Liver: Slight enlargement of a subcentimeter hypodensity in the posterior subcapsular right hepatic dome, too small to characterize, presumed cyst or hemangioma in the absence of known malignancy. Likely focal steatosis along the anterior falciform, normal variant. Spleen: Unremarkable. Gallbladder: Gallbladder nonvisualized, likely reflecting interval cholecystectomy, however there are no visible surgical clips.. Pancreas: Unremarkable. Adrenals: Unremarkable. Kidneys: Difficult to trace portions of the ureters. No hydronephrosis or definite ureteral calculus identified.. Bowel: Borderline mild gaseous dilatation of the transverse colon to 5.1 cm. Few gas distended but technically nondilated small bowel loops up to 2.6 cm. No convincing inflammation. Likely appendectomy. Lymph nodes: Unremarkable. Vasculature: Unremarkable. Peritoneum: Unremarkable. Bladder: Underdistended and suboptimally evaluated, grossly unremarkable. Reproductive Organs: Unremarkable. Tampon noted. Body Wall: Unremarkable. Bones: Similar trace lumbar levoscoliosis.. CT/Abdomen/Pelvis W IV Cont ONLY IMPRESSION: 1. Borderline evidence of minimal small and large bowel ileus. No convincing i nflammation to suggest enteritis or colitis. 2. Additional description as above. Reading Location: [id number]
[2024-10-02 18:06] VITALS: BP 125/71; PULSE 104; RESP 98; O2SAT 98
[2024-10-02 18:07] LABS: Internal QC Validated? YES +Cl - CLEAR BKGD; Pregnancy, Serum, hCG Quali. NEGATIVE Negative
--- NOTE | 2024-10-02 18:08 | ED.VIS.GI ---
HPI HPI - GI History of Present Illness Chief Complaint: Abd Pain Informant: patient Abdominal Pain/Flank Pain Onset: Today and Hours Context: Gradual Onset Timing: Continuous Quality: Cramping Location: Epigastric, LUQ and Left Flank Current Severity: Moderate Maximum Severity: Moderate Worsened by: Nothing Relieved by: Nothing Nausea/Vomiting/Emesis GI Symptom: Positive for Nausea and Vomiting Onset: Today Severity: Mild Diarrhea/Melena/Hematochezia GI Symptom: Positive for Diarrhea; Negative for Melena or Hematochezia Severity: Mild Associated Symptoms Associated Symptoms: Negative for Dysuria, Frequency, Hematuria or Urgency Narrative Narrative: 29-year-old female history of hereditary pancreatitis. Prior cholecystectomy, appendectomy and tubal ligation. Complaining of epigastric left upper quadrant left flank pain that started this morning. Associated nausea, vomiting and diarrhea. Subjective fever. Patient's had a history of pancreatitis and thinks this is that. Prior similar symptoms: Yes Recent Illness/Hospitalization: No PFSH [facility] Medical History Vaginal delivery History of cocaine abuse 38 weeks gestation of PROM (premature rupture of membranes) Ovarian cyst Depression affecting Family history of malignant hyperthermia Hiatal hernia Tonsillectomy planned hemorrhage Depression Anxiety Pancreatitis Home Medications ?Medication ?Instructions ?Recorded ?Last Taken ?Type metoclopramide HCl 10 mg tablet 10 mg PO Q6H PRN nausea and 01/19/24 Unknown Rx (Reglan) vomiting #14 tabs cariprazine 1.5 mg capsule 3 mg PO DAILY 06/07/24 Unknown History (Vraylar) ondansetron 4 mg disintegrating 4 mg PO Q6H PRN nausea and 06/07/24 Unknown Rx tablet vomiting #15 tabs amoxicillin 875 mg-potassium 1 tab PO BID 10 days #20 tabs 09/06/24 Unknown Rx clavulanate 125 mg tablet hydrocodone-acetaminophen 5-325mg 1 tab PO Q6H PRN PRN Pain 3 days 09/06/24 Unknown Rx 5mg-325mg #12 TABLETS lithium carbonate 300 mg capsule 300 mg PO BID 09/06/24 Unknown History prednisone 20 mg tablet 40 mg (2 x 20 mg) PO DAILY 7 days 09/06/24 Unknown Rx #14 tabs trazodone 50 mg tablet 50 mg PO QHS 09/06/24 Unknown History hydrocodone-acetaminophen 5-325mg 1 tab PO Q4H PRN PRN Pain 2 days 09/07/24 Unknown Rx 5mg-325mg #7 TABLETS ondansetron 4 mg disintegrating 4 mg PO Q6H PRN nausea and 10/02/24 Unknown Rx tablet vomiting #7 tabs Allergy/AdvReac Type Severity Reaction Status Date / Time oxycodone (From Percocet) Allergy Severe Angioedema Verified 10/02/24 17:36 fructose AdvReac Mild Upset Verified 10/02/24 17:36 Stomach Family History Grandmother Malignant hyperthermia Surgical History History of adenoidectomy History of appendectomy Social History household members: spouse and children Smoking Status: Current every day smoker tobacco type: cigarettes substance use type: does not use ROS ROS ED ROS Narrative Abdominal pain. Nausea, vomiting and diarrhea. Constitutional Constitutional ED: Denies chills or fever(s) ENT ENT ED: Denies ear pain Cardiovascular Cardiovascular: Denies chest pain Respiratory/Chest Respiratory/Chest: Denies cough or dyspnea Gastrointestinal Gastrointestinal: Reports abdominal pain, diarrhea, nausea and vomiting; Denies constipation or melena Genitourinary Genitourinary ED: Denies dysuria or hematuria Musculoskeletal Musculoskeletal: Denies arthralgias Integumentary Denies abscess or Abrasions Neurologic Neurologic: Denies headache(s) Psychiatric Psychiatric: Denies anxiety or depression Endocrine Endocrinology: Denies polydipsia Hematologic/Lymphatic Hematologic/Lymphatic: Denies easy bleeding Allergic/Immunologic Allergic/Immunologic ED: Denies mouth swelling, tongue swelling or urticaria EXAM Physical Exam Narrative Exam Narrative: 29-year-old female sitting upright in bed. Tearful. Vital signs are stable afebrile does not look septic toxic. H EENT exam pupils round reactive light. Dry mucous membranes. Neck nontender. Lungs clear to auscultation bilaterally. Heart regular rhythm rate about 105 no murmur. Chest wall and ribs nontender. Abdomen soft tender in the left upper quadrant. No rebound guarding rigidity. No mass. Right upper right lower quadrant unremarkable. No hernia. No obstruction. Moving all 4 extremities. Nontender no edema. Normal range of motion and strength. Back nontender. Neurologically she is awake and alert. Answering questions following commands. Const Vital Signs: 10/02/24 17:36 10/02/24 18:06 10/02/24 19:00 Temperature 98.0 F Temperature Source Oral Pulse Rate 114 H 104 H 90 Respiratory Rate 26 H 98 H 16 Blood Pressure 211/193 H 125/71 H 111/70 Blood Pressure Mean 199 89 83 Pulse Ox 100 98 98 Oxygen Delivery Method Room Air Positive well nourished and well developed; Negative for obese, cachectic, contractures or unkempt General Appearance ED: well developed; Negative for unkempt, cachectic, contractures or pallor Nutritional Appearance: Negative for cachectic or obese HEENT Reports dry mucous membranes; Denies moist mucous membranes normocephalic and atraumatic Mouth ED: Yes dry mucous membranes Mouth: dry mucous membranes Eyes PERRL and EOMs intact bilaterally Neck no lymphadenopathy, supple and no JVD Resp normal respiratory effort and clear to auscultation bilaterally Effort and Inspection: Negative for respiratory distress Auscultation: Negative for rales, rhonchi, wheezes or diminished lung sounds Cardio regular rhythm, S1 normal heart sound, S2 normal heart sound and no murmurs; Negative for regular rate Rate: tachycardic GI non-distended and no masses; Negative for non-tender Inspection: Negative for abdominal distention Auscultation: normoactive bowel sounds Palpation: soft and tender; Negative for guarding, hepatomegaly, splenomegaly, hernia, mass, pulsatile mass or rebound tenderness present Back/Spine no CVA tenderness General Back: Negative for CVA tenderness Cervical Spine: Negative for cervical spine tenderness Thoracic Spine / Upper Back: Negative for thoracic spinal tenderness Lumbar Spine / Lower Back: Negative for lumbar spinal tenderness Extremity full ROM General Extremety ED: Negative for edema, tenderness or other findings General Extremity: Negative for edema or other findings Neuro CN's II-XII intact bilaterally and moves all extremities Sensorium / Orientation: alert; Negative for oriented to person, oriented to place, oriented to time, orientation impaired, confused, lethargic or stuporous Motor Exam: strength 5/5 throughout Psych mental status grossly normal and thought process normal Appearance: Negative for unkempt Attitude: No agitated Mood & Affect: tearful; Negative for depressed or anxious Skin no wounds General Skin Exam: Negative for jaundice or pallor Lesions: no lesions Rashes: no rashes Trauma: Negative for abrasion Nails: Negative for discolored MDM MDM MDM Narrative Medical decision making narrative: 29-year-old female abdominal pain differential include pancreatitis, viral syndrome, hepatitis, gastritis versus other. CAT scan labs being obtained. Morphine for pain. Zofran for nausea. IV fluids for dehydration. Repeat exam at 7:28 PM patient is improving. Repeat abdominal exam is benign. Nondistended. Soft. Flat. Should be given diagnosis of morphine for pain and Zofran. This may be secondary to a viral gastroenteritis. There is no signs of acute pancreatitis either on CT or her lipase level. She will be discharged to home. Fluids and rest. Zofran as needed for nausea. Follow-up with her primary care physician not improving or return if worse. History & Record Review Discussion w/independent historian: Patient Additional record(s) reviewed:: Prior inpatient record, Prior outpatient record, Prior ED visit and Prior labs Lab Data Attestation: I reviewed the patient's lab results. Lab results narrative: CBC shows an elevated white count 19.3. H&H 15 and 45. Platelets 375. Electrolytes show sodium 138. Gap 15. Normal BUN of 14 creatinine 0.79. Glucose 91. Liver enzymes unremarkable other than ALT of 37. Lipase normal at 25. Serum test negative. CT shows possible mild ileus. Labs: Laboratory Results - last 24 hr 10/02/24 17:43 WBC 19.3 H RBC 5.27 Hgb 15.0 Hct 45.2 MCV 85.8 MCH 28.5 MCHC 33.2 RDW Std Deviation 45.8 H RDW Coeff of Elliott 14.5 Plt Count 375 MPV 10.5 Immature Gran % (Auto) 0.600 Neut % (Auto) 80.7 H Lymph % (Auto) 14.1 L Nuckolls % (Auto) 3.9 Eos % (Auto) 0.4 Baso % (Auto) 0.3 Absolute Neuts (auto) 15.6 H Absolute Lymphs (auto) 2.71 Nucleated RBC % 0 Sodium 138 Potassium 4.4 Chloride 102 Carbon Dioxide 22.0 Anion Gap 15 BUN 14 Creatinine 0.79 Estim Creat Clear Calc 89.92 Est GFR (MDRD) Non-Af 104 BUN/Creatinine Ratio 17.2 Glucose 91 Calcium 10.1 Total Bilirubin 0.26 AST 25 ALT 37 H Alkaline Phosphatase 95 Total Protein 8.0 Albumin 5.0 Globulin 3.0 Albumin/Globulin Ratio 1.7 Lipase 25 Serum , Qual NEGATIVE Radiography Diagnostic Testing: Clinical Impression(s) from Imaging Studies Abdomen/Pelvis CT 10/02/24 18:02 IMPRESSION: 1. Borderline evidence of minimal small and large bowel ileus. No convincing inflammation to suggest enteritis or colitis. 2. Additional description as above. Reading Location: [id number] Discharge Plan Triage Chief Complaint: Abd Pain ED Provider: Tien Corona Dx/Rx/DC Orders Clinical Impression: Viral gastroenteritis, Abdominal pain, Hx of acute pancreatitis Instructions: Viral Gastroenteritis Prescriptions: New ondansetron 4 mg tablet,disintegrating 4 mg PO Q6H PRN (Reason: nausea and vomiting) Qty: 7 0RF No Action metoclopramide HCl [Reglan] 10 mg tablet 10 mg PO Q6H PRN (Reason: nausea and vomiting) Qty: 14 0RF Vraylar 1.5 mg capsule 3 mg PO DAILY ondansetron 4 mg tablet,disintegrating 4 mg PO Q6H PRN (Reason: nausea and vomiting) Qty: 15 0RF lithium carbonate 300 mg capsule 300 mg PO BID trazodone 50 mg tablet 50 mg PO QHS amoxicillin-pot clavulanate 875-125 mg tablet 1 tab PO BID 10 Days Qty: 20 0RF prednisone 20 mg tablet 40 mg PO DAILY 7 Days Qty: 14 0RF hydrocodone-acetaminophen 5-325 mg tablet 1 tab PO Q6H PRN PRN (Reason: Pain) 3 Days Qty: 12 0RF hydrocodone-acetaminophen 5-325 mg tablet 1 tab PO Q4H PRN PRN (Reason: Pain) 2 Days Qty: 7 0RF Primary Care Provider: Susanna Torres Referrals: Susanna Torres, DREDGE LEVER OPERATOR-C [Primary Care Provider] - 1-2 Days if not improving Activity Restrictions/Additional Instructions: Most likely a viral gastroenteritis. Labs and CAT scan did not show anything specific. No signs of pancreatitis. Plenty of fluids and rest. Slowly increase your diet as tolerated. Water, 7-Up and Gatorade and slowly increase. Zofran as needed for nausea. Tylenol for any pain. Follow-up with your doctor if not improving return if unable to keep fluids down. Print Language: Mexican Disposition Disposition: Home, Self Care
[2024-10-02 18:17] LABS: ALB/GLOB Ratio 1.7 RATIO (0.9-2.4); AST(SGOT) 25 U/L (<=31); Alanine Aminotransfer ALT/SGPT 37 U/L (<=34); Alkaline Phosphatase 95 U/L (35-104); Anion Gap 15 (5-15); BUN 14 mg/dL (4-19); BUN/Creat Ratio 17.2 RATIO (10-20); Calcium,Total 10.1 mg/dL (7.6-11.0); Chloride 102 mmol/L (98-108); Creatinine, Serum 0.79 mg/dL (0.70-1.20); EST Glomerular Filtration Rate 104 (>60); Estimated Creatinine Clearance 89.92 ml/min (50-250); Glucose 91 mg/dL (70-99); Lipase 25 U/L (13-75); Potassium 4.4 mmol/L (3.3-5.1); Sodium Level 138 mmol/L (133-145); Total Bilirubin 0.26 mg/dL (0.00-1.30)
[2024-10-02] MEDS: Ondansetron 4 MG/2 ML Vial IV ×2 (18:21→19:46)
[2024-10-02] MEDS: morphine 8 MG/ML Syringe 6 MG IV (18:21)
[2024-10-02] MEDS: 0.9% Normal Saline (1000mL) 1,000 ML 999 ML IV (18:21)
[2024-10-02 19:00] VITALS: BP 111/70; PULSE 90; RESP 16; O2SAT 98
[2024-10-02] MEDS: fentaNYL 100 MCG/2 ML Ampul 25 MCG IV (19:45)
[2024-10-02 19:49] VITALS: BP 111/73; PULSE 80; RESP 12; TEMP 36.8; O2SAT 100
== END 2024-10-02 19:53 | disposition home or self-care (01) ==
PROVIDERS: Emergency Provider Emergency Medicine; PCP Nurse Practitioner Family; Visit Provider Emergency Medicine
DX: A08.4 Viral intestinal infection, unspecified (principal); F17.210 Nicotine dependence, cigarettes, uncomplicated; Z90.49 Acquired absence of other specified parts of digestive tract
CPT/HCPCS: 74177; 80053; 83690; 84703; 85025; 96361; 96374; 96375; 96376; 99283; Q9967; A4216; J2405

== ENCOUNTER 2024-12-10 12:39 | Emergency (ER) | payer MEDICAID, SELFPAY ==
[2024-12-10 12:40] VITALS: BP 143/92; PULSE 103; RESP 18; TEMP 36.7; O2SAT 95; BMI 22.6
--- NOTE | 2024-12-10 12:57 | ED.VIS.GI ---
HPI HPI - GI History of Present Illness Chief Complaint: Abd Pain Detail of Chief Complaint: Abdominal pain Informant: patient Narrative Narrative: Patient presents to the emergency department complaint of abdominal pain that started yesterday. Patient states she started with vomiting and diarrhea. She is thrown up about 6 times in the last 3 of had some blood-tinged emesis. Patient's had about 12 episode of watery stool. She denies blood in her stool. She has history of chronic pancreatitis. She has had cholecystectomy and appendectomy. Denies sick contacts. She has had no fever. She has had some cold sweats. Patient states pain is in the upper abdomen and severe. [facility] Medical History Vaginal delivery History of cocaine abuse 38 weeks gestation of PROM (premature rupture of membranes) Ovarian cyst Depression affecting Family history of malignant hyperthermia Hiatal hernia Tonsillectomy planned hemorrhage Depression Anxiety Pancreatitis Home Medications ?Medication ?Instructions ?Recorded ?Last Taken ?Type metoclopramide HCl 10 mg tablet 10 mg PO Q6H PRN nausea and 01/19/24 Unknown Rx (Reglan) vomiting #14 tabs cariprazine 1.5 mg capsule 3 mg PO DAILY 06/07/24 Unknown History (Vraylar) ondansetron 4 mg disintegrating 4 mg PO Q6H PRN nausea and 06/07/24 Unknown Rx tablet vomiting #15 tabs amoxicillin 875 mg-potassium 1 tab PO BID 10 days #20 tabs 09/06/24 Unknown Rx clavulanate 125 mg tablet hydrocodone-acetaminophen 5-325mg 1 tab PO Q6H PRN PRN Pain 3 days 09/06/24 Unknown Rx 5mg-325mg #12 TABLETS lithium carbonate 300 mg capsule 300 mg PO BID 09/06/24 Unknown History prednisone 20 mg tablet 40 mg (2 x 20 mg) PO DAILY 7 days 09/06/24 Unknown Rx #14 tabs trazodone 50 mg tablet 50 mg PO QHS 09/06/24 Unknown History hydrocodone-acetaminophen 5-325mg 1 tab PO Q4H PRN PRN Pain 2 days 09/07/24 Unknown Rx 5mg-325mg #7 TABLETS ondansetron 4 mg disintegrating 4 mg PO Q6H PRN nausea and 10/02/24 Unknown Rx tablet vomiting #7 tabs hydrocodone-acetaminophen 5-325mg 1 tab PO Q4H PRN PRN Pain 2 days 12/10/24 Unknown Rx 5mg-325mg #10 TABLETS metoclopramide HCl 10 mg tablet 10 mg PO Q6H PRN nausea and 12/10/24 Unknown Rx (Reglan) vomiting #10 tabs Allergy/AdvReac Type Severity Reaction Status Date / Time oxycodone (From Percocet) Allergy Severe Angioedema Verified 12/10/24 12:43 fructose AdvReac Mild Upset Verified 12/10/24 12:43 Stomach Family History Grandmother Malignant hyperthermia Surgical History History of adenoidectomy History of appendectomy Social History household members: spouse and children Smoking Status: Light Smoker (<10/day) substance use type: does not use ROS ROS ED Review of Systems ROS Unobtainable: other Constitutional Constitutional ED: Reports lethargy; Denies chills, fever(s), sweats or weight loss Eyes Eyes: Denies blurry vision, change in vision or diplopia ENT ENT ED: Denies rhinorrhea or sore throat Cardiovascular Cardiovascular: Denies chest pain, orthopnea or racing heartbeat Respiratory/Chest Respiratory/Chest: Denies cough, dyspnea, dyspnea on exertion, orthopnea or sputum Gastrointestinal Gastrointestinal: Reports abdominal pain, diarrhea, nausea and vomiting Genitourinary Genitourinary ED: Denies dysuria, hematuria or urinary frequency Musculoskeletal Musculoskeletal: Denies arthralgias, back pain, myalgias or neck pain Integumentary Denies abscess, Abrasions or rash Neurologic Neurologic: Denies headache(s) or weakness Psychiatric Psychiatric: Denies anxiety, depression or suicidal thoughts Endocrine Endocrinology: Denies polydipsia, polyphagia or polyuria Hematologic/Lymphatic Hematologic/Lymphatic: Denies easy bleeding, easy bruising or lymphadenopathy Allergic/Immunologic Allergic/Immunologic ED: Denies mouth swelling, tongue swelling or urticaria EXAM Physical Exam Const Vital Signs: 12/10/24 12:40 12/10/24 14:39 Temperature 98.1 F Temperature Source Oral Pulse Rate 103 H 75 Respiratory Rate 18 16 Blood Pressure 143/92 H Blood Pressure Mean 109 Pulse Ox 95 96 Oxygen Delivery Method Room Air Room Air Positive well nourished and well developed General Appearance ED: well developed and NAD HEENT Reports TM's clear and moist mucous membranes normocephalic and atraumatic; Negative for trauma or tenderness Tympanic Membrane ED: Yes TM's clear Eyes PERRL and EOMs intact bilaterally General Eye ED: Negative for pale conjunctiva or scleral icterus Neck no lymphadenopathy, supple and no JVD General: Negative for tenderness Chest Wall inspection of chest normal and palpation of chest normal Chest: Negative for tenderness Resp normal respiratory effort and clear to auscultation bilaterally Effort and Inspection: Negative for respiratory distress or pain with movement Auscultation: Negative for rhonchi, wheezes or diminished lung sounds Cardio regular rate, regular rhythm, S1 normal heart sound, S2 normal heart sound and no murmurs Peripheral Pulses: pulses 2+ throughout GI normal to inspection, nondistended, normoactive bowel sounds, soft to palpation, non-distended and no masses GI Narrative: Tenderness palpation over the epigastric region with some guarding. There is no rebound, rigidity, or peritoneal signs. No mass palpated Back/Spine no CVA tenderness and no thoracic nor lumbar tenderness Extremity normal to inspection General Extremety ED: Negative for edema General Extremity: Negative for edema Neuro oriented x3, CN's II-XII intact bilaterally, no sensory deficits noted and gait normal Sensorium / Orientation: awake, alert, oriented to person, oriented to place and oriented to time Motor Exam: strength 5/5 throughout and strength abnormal Psych mental status grossly normal Skin no rashes or lesions noted and no wounds MDM MDM MDM Narrative Medical decision making narrative: Patient presents emergency department abdominal pain as well as vomiting and diarrhea since yesterday. She has history of chronic pancreatitis. Had her gallbladder and her appendix removed. She states that she sees a specialist up in [place]. IV line established. CBC with differential obtained showed white count 14.2 with hemoglobin 14.1 and platelet count of 333. Chemistries unremarkable. Patient had elevation of her AST at 54 as well as ALT of 132 and alk phos of 120. These findings are chronic in nature. Her lipase was normal at 52. CT scan of the abdomen pelvis with IV contrast obtained interpreted by radiology as no bowel obstruction or pneumoperitoneum. There is no obstructive uropathy. There is fecal retention in the colon consistent with constipation and no significant change from prior exam. Patient states that she is certainly not having constipation issues as she has had diarrhea x 12 in the last 24 hours. She was unable to give a stool sample as I did order stool for enteric pathogens as well. Patient while in department was medicated with Dilaudid and Zofran. At this point she will be discharged to home. She did receive Protonix 40 mg IV. Suspect she may have had a Effie-Van tear as well from retching and vomiting. Advised to follow-up with her learning services coordinator within the next 3 to 5 days. I will write her prescription for Reglan and hydrocodone. Patient to return if worsening pain, persistent vomiting, fever, persistent hematemesis, or condition should worsen anyway. I suspect she may have a viral gastroenteritis. Also cannot rule out pain related to chronic pancreatitis although there is no evidence of acute inflammation around the pancreas today. Lab Data Attestation: I reviewed the patient's lab results. Labs: Laboratory Results - last 24 hr 12/10/24 12:52 WBC 14.2 H RBC 4.79 Hgb 14.1 Hct 42.5 MCV 88.7 MCH 29.4 MCHC 33.2 RDW Std Deviation 40.1 RDW Coeff of Elliott 12.4 Plt Count 333 MPV 9.9 Immature Gran % (Auto) 0.600 Neut % (Auto) 69.6 Lymph % (Auto) 21.3 Greene % (Auto) 6.2 Eos % (Auto) 1.9 Baso % (Auto) 0.4 Absolute Neuts (auto) 9.9 H Absolute Lymphs (auto) 3.03 Nucleated RBC % 0 Sodium 139 Potassium 4.2 Chloride 104 Carbon Dioxide 21.9 Anion Gap 13 BUN 18 Creatinine 0.73 Estim Creat Clear Calc 97.31 Est GFR (MDRD) Non-Af 113 BUN/Creatinine Ratio 24.7 H Glucose 97 Calcium 9.6 Total Bilirubin 0.16 AST 54 H ALT 132 H Alkaline Phosphatase 120 H Total Protein 7.1 Albumin 4.7 Globulin 2.4 Albumin/Globulin Ratio 1.9 Lipase 52 Radiography Diagnostic Testing: Clinical Impression(s) from Imaging Studies Abdomen/Pelvis CT 12/10/24 13:50 IMPRESSION: 1. No bowel obstruction or pneumoperitoneum. 2. No obstructive uropathy. 3. Fecal retention in the colon consistent with constipation. 4. No significant change from the prior exam. Reading Location: [facility] Discharge Plan Triage Chief Complaint: Abd Pain ED Provider: Vaughn Javed Dx/Rx/DC Orders Clinical Impression: Abdominal pain, Diarrhea, Effie-Van tear Instructions: Effie-Van Tear, ED Abdominal Pain Unkn Cause Fem, ED Diarrhea, Unknown Cause Prescriptions: New metoclopramide HCl [Reglan] 10 mg tablet 10 mg PO Q6H PRN (Reason: nausea and vomiting) Qty: 10 0RF hydrocodone-acetaminophen 5-325 mg tablet 1 tab PO Q4H PRN PRN (Reason: Pain) 2 Days Qty: 10 0RF No Action metoclopramide HCl [Reglan] 10 mg tablet 10 mg PO Q6H PRN (Reason: nausea and vomiting) Qty: 14 0RF Vraylar 1.5 mg capsule 3 mg PO DAILY ondansetron 4 mg tablet,disintegrating 4 mg PO Q6H PRN (Reason: nausea and vomiting) Qty: 15 0RF lithium carbonate 300 mg capsule 300 mg PO BID trazodone 50 mg tablet 50 mg PO QHS amoxicillin-pot clavulanate 875-125 mg tablet 1 tab PO BID 10 Days Qty: 20 0RF prednisone 20 mg tablet 40 mg PO DAILY 7 Days Qty: 14 0RF hydrocodone-acetaminophen 5-325 mg tablet 1 tab PO Q6H PRN PRN (Reason: Pain) 3 Days Qty: 12 0RF hydrocodone-acetaminophen 5-325 mg tablet 1 tab PO Q4H PRN PRN (Reason: Pain) 2 Days Qty: 7 0RF ondansetron 4 mg tablet,disintegrating 4 mg PO Q6H PRN (Reason: nausea and vomiting) Qty: 7 0RF Primary Care Provider: Susanna Torres Referrals: Susanna Torres, ICE SKATING TEACHER-C [Primary Care Provider] - Print Language: Japanese
[2024-12-10] MEDS: Metoclopramide 10 MG/2 ML Vial IV (13:11)
[2024-12-10] MEDS: 0.9% Normal Saline (1000mL) 1,000 ML 999 ML IV (13:11)
[2024-12-10] MEDS: HYDROmorphone 1 MG/ML Syringe IV ×2 (13:11→14:27)
[2024-12-10 13:13] LABS: Absolute Lymphocyte Count 3.03 X10^3/uL (0.83-4.51); Absolute Neutrophil Count 9.9 X10^3/uL (2.0-7.7); Basophil# 0.05 X10^3/uL; Basophil% 0.4 % (0-1); Eosinophil# 0.27 X10^3/uL; Eosinophils% 1.9 % (0-5); Hematocrit 42.5 % (37-47); Hemoglobin 14.1 g/dL (12.0-15.0); Lymphocyte # 3.03 X10^3/ul (0.83-4.51); Lymphocyte % 21.3 % (19-41); Mean Corp Hgb Conc 33.2 g/dL (32-36); Mean Corpuscular Hgb 29.4 pg (27.0-32.0); Mean Corpuscular Volume 88.7 fL (81-99); Mean Platelet Vol. 9.9 fl (6.2-12.0); Monocyte# 0.88 X10^3/uL; Monocyte% 6.2 % (0-10); NRBC Flagged by Analyzer 0 % (0-5); Neutrophil # 9.92 X10^3/uL (2.7-7.7); Neutrophil % 69.6 % (47-70); Platelet Count 333 K/mm3 (150-450); RBC Distribution Width CV 12.4 % (11.6-14.6); RBC Distribution Width SD 40.1 fl (35.1-43.9); Red Blood Count 4.79 M/mm3 (4.2-5.4); White Blood Count 14.2 K/mm3 (4.4-11.0)
[2024-12-10 13:40] LABS: ALB/GLOB Ratio 1.9 RATIO (0.9-2.4); AST(SGOT) 54 U/L (<=31); Alanine Aminotransfer ALT/SGPT 132 U/L (<=34); Albumin, Serum 4.7 g/dL (3.5-5.0); Alkaline Phosphatase 120 U/L (35-104); Anion Gap 13 (5-15); BUN 18 mg/dL (4-19); BUN/Creat Ratio 24.7 RATIO (10-20); Calcium,Total 9.6 mg/dL (7.6-11.0); Carbon Dioxide 21.9 mmol/L (21.0-32.0); Chloride 104 mmol/L (98-108); Creatinine, Serum 0.73 mg/dL (0.70-1.20); EST Glomerular Filtration Rate 113 (>60); Estimated Creatinine Clearance 97.31 ml/min (50-250); Globulin 2.4 g/dL (2.2-4.2); Glucose 97 mg/dL (70-99); Lipase 52 U/L (13-75); Potassium 4.2 mmol/L (3.3-5.1); Protein, Total 7.1 g/dL (5.9-8.4); Sodium Level 139 mmol/L (133-145); Total Bilirubin 0.16 mg/dL (0.00-1.30)
--- NOTE | 2024-12-10 13:50 | CT_ITS ---
EXAM: CT Abdomen and Pelvis With Intravenous Contrast CLINICAL INDICATION: ABDOMINAL PAIN TECHNIQUE: Axial computed tomography images of the abdomen and pelvis with intravenous contrast. This CT exam was performed using one or more of the following dose reduction techniques: automated exposure control, adjustment of the mA and/or kV according to patient size, and/or use of iterative reconstruction technique. COMPARISON: CT Abdomen Pelvis dated 10/02/2024 FINDINGS: LUNG BASES: Unremarkable. No mass. No consolidation. ABDOMEN: LIVER: Fatty infiltration of the liver. GALLBLADDER AND BILE DUCTS: Unremarkable. No calcified stones. No ductal dilation. PANCREAS: Unremarkable. No mass. No ductal dilation. SPLEEN: Unremarkable. No splenomegaly. ADRENALS: Unremarkable. No mass. KIDNEYS AND URETERS: Unremarkable. No stones within either kidney. No hydronephrosis. STOMACH AND BOWEL: Fecal retention in the colon consistent with constipation. No mucosal thickening. No bowel obstruction or pneumoperitoneum. PELVIS: APPENDIX: No findings to suggest acute appendicitis. BLADDER: Unremarkable. No mass. REPRODUCTIVE: Unremarkable as visualized. ABDOMEN and PELVIS: INTRAPERITONEAL SPACE: See above. BONES/JOINTS: No acute fracture. No dislocation. SOFT TISSUES: Unremarkable. VASCULATURE: Unremarkable. No abdominal aortic aneurysm. LYMPH NODES: Unremarkable. No enlarged lymph nodes. CT/Abdomen/Pelvis W IV Cont ONLY IMPRESSION: 1. No bowel obstruction or pneumoperitoneum. 2. No obstructive uropathy. 3. Fecal retention in the colon consistent with constipation. 4. No significant change from the prior exam. Reading Location: [facility]
[2024-12-10] MEDS: Pantoprazole Sodium 40 MG in 0.9% Normal Saline (100mL MB+) 100 ML 330 MG IV (14:27)
[2024-12-10 14:39] VITALS: PULSE 75; RESP 16; O2SAT 96
[2024-12-10 14:59] VITALS: BP 143/92; PULSE 75; RESP 16; TEMP 36.7; O2SAT 96
== END 2024-12-10 15:06 | disposition home or self-care (01) ==
PROVIDERS: Emergency Provider Emergency Medicine; PCP Nurse Practitioner Family; Referring Provider Emergency Medicine; Visit Provider Emergency Medicine
DX: K22.6 Gastro-esophageal laceration-hemorrhage syndrome (principal); K86.1 Other chronic pancreatitis; R10.13 Epigastric pain; R19.7 Diarrhea, unspecified; F17.200 Nicotine dependence, unspecified, uncomplicated; Z90.49 Acquired absence of other specified parts of digestive tract; Z79.899 Other long term (current) drug therapy
CPT/HCPCS: 74177; 80053; 83690; 85025; 96361; 96365; 96375; 96376; 99285; Q9967

== ENCOUNTER 2024-12-18 14:20 | Emergency (ER) | payer MEDICAID, SELFPAY ==
[2024-12-18 14:21] VITALS: BP 117/74; PULSE 96; RESP 17; TEMP 36.8; O2SAT 98; BMI 23.0
--- NOTE | 2024-12-18 14:38 | ED.VIS.GI ---
HPI HPI - GI History of Present Illness Chief Complaint: Abd Pain Detail of Chief Complaint: Abdominal pain Informant: patient Narrative Narrative: Patient presents with abdominal pain that started yesterday. She states she is constipated and has not had a bowel movement in about a week. She was seen by myself in the ER a week ago for abdominal pain and some diarrhea. She had workup at that time that was relatively unremarkable. She followed up with a general surgeon yesterday because of Effie-Van tear and had colonoscopy scheduled. Patient apparently was given medication she thinks maybe GoLytely to help her move her bowels but it has not done anything for her. She complains of nausea but no vomiting. She denies fever today although she states she had a temp last night. She denies urinary symptoms. She has had prior cholecystectomy and appendectomy. She gets pancreatitis frequently since the age of 16 [facility] Medical History Vaginal delivery History of cocaine abuse 38 weeks gestation of PROM (premature rupture of membranes) Ovarian cyst Depression affecting Family history of malignant hyperthermia Hiatal hernia Tonsillectomy planned hemorrhage Depression Anxiety Pancreatitis Home Medications ?Medication ?Instructions ?Recorded ?Last Taken ?Type metoclopramide HCl 10 mg tablet 10 mg PO Q6H PRN nausea and 01/19/24 Unknown Rx (Reglan) vomiting #14 tabs cariprazine 1.5 mg capsule 3 mg PO DAILY 06/07/24 Unknown History (Vraylar) ondansetron 4 mg disintegrating 4 mg PO Q6H PRN nausea and 06/07/24 Unknown Rx tablet vomiting #15 tabs amoxicillin 875 mg-potassium 1 tab PO BID 10 days #20 tabs 09/06/24 Unknown Rx clavulanate 125 mg tablet hydrocodone-acetaminophen 5-325mg 1 tab PO Q6H PRN PRN Pain 3 days 09/06/24 Unknown Rx 5mg-325mg #12 TABLETS lithium carbonate 300 mg capsule 300 mg PO BID 09/06/24 Unknown History prednisone 20 mg tablet 40 mg (2 x 20 mg) PO DAILY 7 days 09/06/24 Unknown Rx #14 tabs trazodone 50 mg tablet 50 mg PO QHS 09/06/24 Unknown History hydrocodone-acetaminophen 5-325mg 1 tab PO Q4H PRN PRN Pain 2 days 09/07/24 Unknown Rx 5mg-325mg #7 TABLETS ondansetron 4 mg disintegrating 4 mg PO Q6H PRN nausea and 10/02/24 Unknown Rx tablet vomiting #7 tabs hydrocodone-acetaminophen 5-325mg 1 tab PO Q4H PRN PRN Pain 2 days 12/10/24 Unknown Rx 5mg-325mg #10 TABLETS metoclopramide HCl 10 mg tablet 10 mg PO Q6H PRN nausea and 12/10/24 Unknown Rx (Reglan) vomiting #10 tabs lansoprazole 30 mg capsule,delayed 30 mg PO DAILY #14 caps 12/18/24 Unknown Rx release (Prevacid) promethazine 25 mg tablet 25 mg PO TID PRN nausea and 12/18/24 Unknown Rx vomiting #10 tabs Allergy/AdvReac Type Severity Reaction Status Date / Time oxycodone (From Percocet) Allergy Severe Angioedema Verified 12/18/24 14:23 fructose AdvReac Mild Upset Verified 12/18/24 14:23 Stomach Family History Grandmother Malignant hyperthermia Surgical History History of adenoidectomy History of appendectomy Social History (Updated 12/18/24 @ 14:34 by Betty Ho) household members: spouse and children housing: house Smoking Status: Light Smoker (<10/day) substance use type: does not use ROS ROS ED Review of Systems ROS Unobtainable: other Constitutional Constitutional ED: Reports fever(s); Denies chills, lethargy, sweats or weight loss Eyes Eyes: Denies blurry vision, change in vision or diplopia ENT ENT ED: Denies rhinorrhea or sore throat Cardiovascular Cardiovascular: Denies chest pain, orthopnea or racing heartbeat Respiratory/Chest Respiratory/Chest: Denies cough, dyspnea, dyspnea on exertion, orthopnea or sputum Gastrointestinal Gastrointestinal: Reports abdominal pain and nausea; Denies diarrhea or vomiting Genitourinary Genitourinary ED: Denies dysuria, hematuria or urinary frequency Musculoskeletal Musculoskeletal: Denies arthralgias, back pain, myalgias or neck pain Integumentary Denies abscess, Abrasions or rash Neurologic Neurologic: Denies headache(s) or weakness Psychiatric Psychiatric: Denies anxiety, depression or suicidal thoughts Endocrine Endocrinology: Denies polydipsia, polyphagia or polyuria Hematologic/Lymphatic Hematologic/Lymphatic: Denies easy bleeding, easy bruising or lymphadenopathy Allergic/Immunologic Allergic/Immunologic ED: Denies mouth swelling, tongue swelling or urticaria EXAM Physical Exam Const Vital Signs: 12/18/24 14:21 12/18/24 15:23 12/18/24 16:20 Temperature 98.3 F 98.2 F Temperature Source Oral Oral Pulse Rate 96 81 74 Respiratory Rate 17 16 16 Blood Pressure 117/74 116/76 107/72 Blood Pressure Mean 88 89 83 Pulse Ox 98 100 100 Oxygen Delivery Method Room Air Room Air Room Air Positive well nourished and well developed General Appearance ED: well developed and NAD HEENT Reports TM's clear and moist mucous membranes normocephalic and atraumatic; Negative for trauma or tenderness Tympanic Membrane ED: Yes TM's clear Eyes PERRL and EOMs intact bilaterally General Eye ED: Negative for pale conjunctiva or scleral icterus Neck no lymphadenopathy, supple and no JVD General: Negative for tenderness Chest Wall inspection of chest normal and palpation of chest normal Chest: Negative for tenderness Resp normal respiratory effort and clear to auscultation bilaterally Effort and Inspection: Negative for respiratory distress or pain with movement Auscultation: Negative for rhonchi, wheezes or diminished lung sounds Cardio regular rate, regular rhythm, S1 normal heart sound, S2 normal heart sound and no murmurs Peripheral Pulses: pulses 2+ throughout GI normal to inspection, nondistended, normoactive bowel sounds, soft to palpation, non-distended and no masses GI Narrative: Mild diffuse tenderness throughout. There is no rebound, rigidity, or peritoneal signs. No mass palpated Back/Spine no CVA tenderness and no thoracic nor lumbar tenderness Extremity normal to inspection General Extremety ED: Negative for edema General Extremity: Negative for edema Neuro oriented x3, CN's II-XII intact bilaterally, no sensory deficits noted and gait normal Sensorium / Orientation: awake, alert, oriented to person, oriented to place and oriented to time Motor Exam: strength 5/5 throughout and strength abnormal Psych mental status grossly normal Skin no rashes or lesions noted and no wounds MDM MDM MDM Narrative Medical decision making narrative: Patient presents with abdominal pain since yesterday. She has not had a bowel movement in a week. She denies blood in her stool. She denies urinary symptoms. She was seen a week ago for similar complaint and had a CT scan and lab work. No etiology was found for pain at that time although she does have a history of chronic pancreatitis. IV line established. CBC with differential obtained showed white count of 11.0 with hemoglobin 13 and platelet count of 250. Chemistries unremarkable. LFTs showed a normal AST at 18 and ALT of 63 and an alk phos of 154. Serum Prag was negative. Urinalysis was normal. I did do a KUB and there was no evidence of obstruction or perforation. She had moderate stool throughout the colon. Rectal exam performed showed no impaction. Patient was given a soapsuds enema and had some results with that. Patient still has GoLytely at home that she is supposed to take tomorrow and the next day. Will write her prescription for Phenergan and Prevacid. Advised to follow-up with primary care physician within next 3 to 5 days. Lab Data Attestation: I reviewed the patient's lab results. Labs: Laboratory Results - last 24 hr 12/18/24 12/18/24 12/18/24 14:32 14:40 14:42 WBC 11.0 RBC 4.34 Hgb 13.0 Hct 38.7 MCV 89.2 MCH 30.0 MCHC 33.6 RDW Std Deviation 42.0 RDW Coeff of Elliott 12.8 Plt Count 250 MPV 10.4 Immature Gran % (Auto) 0.300 Neut % (Auto) 63.1 Lymph % (Auto) 30.9 Parker % (Auto) 3.9 Eos % (Auto) 1.5 Baso % (Auto) 0.3 Absolute Neuts (auto) 6.9 Absolute Lymphs (auto) 3.39 Nucleated RBC % 0 Sodium 137 Potassium 3.5 Chloride 101 Carbon Dioxide 24.7 Anion Gap 11 BUN 11 Creatinine 0.94 Estim Creat Clear Calc 75.57 Est GFR (MDRD) Non-Af 84 BUN/Creatinine Ratio 12.0 Glucose 111 H Lactic Acid 1.3 Calcium 9.7 Total Bilirubin 0.24 AST 18 ALT 63 H Alkaline Phosphatase 154 H Total Protein 7.1 Albumin 4.5 Globulin 2.6 Albumin/Globulin Ratio 1.7 Lipase 26 Serum , Qual NEGATIVE Urine Color Yellow Urine Clarity Sl. Cloudy Urine pH 8.0 Ur Specific [place] 1.015 Urine Protein 15 H Urine Glucose (UA) Normal Urine Ketones Negative Urine Occult Blood Negative Urine Nitrite Negative Urine Bilirubin Negative Urine Urobilinogen Normal Ur Leukocyte Esterase Negative Urine RBC 0-5 SEEN Urine WBC 0 SEEN Ur Squamous Epith Cells 0 SEEN Amorphous Sediment 3+ Urine Bacteria 0 SEEN Urine Mucus 0 SEEN Radiography Diagnostic Testin view KUB obtained interpreted by myself as moderate stool throughout the colon without evidence of obstruction or bowel perforation Discharge Plan Triage Chief Complaint: Abd Pain ED Provider: Vaughn Javed Dx/Rx/DC Orders Clinical Impression: Abdominal pain, Constipation Instructions: ED Abdominal Pain Unkn Cause Fem, ED Constipation (Adult) Prescriptions: New promethazine 25 mg tablet 25 mg PO TID PRN (Reason: nausea and vomiting) Qty: 10 0RF lansoprazole [Prevacid] 30 mg capsule,delayed release(DR/EC) 30 mg PO DAILY Qty: 14 0RF No Action metoclopramide HCl [Reglan] 10 mg tablet 10 mg PO Q6H PRN (Reason: nausea and vomiting) Qty: 14 0RF Vraylar 1.5 mg capsule 3 mg PO DAILY ondansetron 4 mg tablet,disintegrating 4 mg PO Q6H PRN (Reason: nausea and vomiting) Qty: 15 0RF lithium carbonate 300 mg capsule 300 mg PO BID trazodone 50 mg tablet 50 mg PO QHS amoxicillin-pot clavulanate 875-125 mg tablet 1 tab PO BID 10 Days Qty: 20 0RF prednisone 20 mg tablet 40 mg PO DAILY 7 Days Qty: 14 0RF hydrocodone-acetaminophen 5-325 mg tablet 1 tab PO Q6H PRN PRN (Reason: Pain) 3 Days Qty: 12 0RF metoclopramide HCl [Reglan] 10 mg tablet 10 mg PO Q6H PRN (Reason: nausea and vomiting) Qty: 10 0RF hydrocodone-acetaminophen 5-325 mg tablet 1 tab PO Q4H PRN PRN (Reason: Pain) 2 Days Qty: 10 0RF hydrocodone-acetaminophen 5-325 mg tablet 1 tab PO Q4H PRN PRN (Reason: Pain) 2 Days Qty: 7 0RF ondansetron 4 mg tablet,disintegrating 4 mg PO Q6H PRN (Reason: nausea and vomiting) Qty: 7 0RF Primary Care Provider: Susanna Torres Referrals: Susanna Torres, [employer] SUPERVISOR-C [Primary Care Provider] - 3-5 Days Print Language: Tuvaluan Disposition Disposition: Home, Self Care
[2024-12-18] MEDS: Morphine 4 MG/ML Syringe IV (14:43)
[2024-12-18] MEDS: Metoclopramide 10 MG/2 ML Vial IV (14:43)
[2024-12-18 14:48] LABS: Bacteria 0 SEEN /hpf (None Seen); Mucous, Urine 0 SEEN /hpf (<or=2+); Squamous Epithelial Cells - UA 0 SEEN /hpf (5-10); White Blood Cells 0 SEEN /hpf (0-5)
[2024-12-18 14:51] LABS: Color, Urine Yellow (Yellow); Glucose, Dipstick Normal (Normal); Ketone-Dipstick Negative (Negative); Leukocyte Esterase-Dipstick Negative /ul (Negative); Nitrite-Dipstick Negative (Negative); Occult Blood-Urine Negative /ul (Negative); Protein-Dipstick 15 mg/dl (Negative); Specific Gravity, Urine 1.015 (1.002-1.030); Urine Bilirubin Dipstick Negative (Negative); Urine Clarity Sl. Cloudy (Clear); Urine Urobilinogen Normal (Normal)
[2024-12-18 14:56] LABS: Absolute Lymphocyte Count 3.39 X10^3/uL (0.83-4.51); Absolute Neutrophil Count 6.9 X10^3/uL (2.0-7.7); Basophil# 0.03 X10^3/uL; Basophil% 0.3 % (0-1); Eosinophil# 0.17 X10^3/uL; Eosinophils% 1.5 % (0-5); Hematocrit 38.7 % (37-47); Lymphocyte # 3.39 X10^3/ul (0.83-4.51); Lymphocyte % 30.9 % (19-41); Mean Corp Hgb Conc 33.6 g/dL (32-36); Mean Corpuscular Volume 89.2 fL (81-99); Mean Platelet Vol. 10.4 fl (6.2-12.0); Monocyte# 0.43 X10^3/uL; Monocyte% 3.9 % (0-10); NRBC Flagged by Analyzer 0 % (0-5); Neutrophil # 6.92 X10^3/uL (2.7-7.7); Neutrophil % 63.1 % (47-70); Platelet Count 250 K/mm3 (150-450); RBC Distribution Width CV 12.8 % (11.6-14.6); Red Blood Count 4.34 M/mm3 (4.2-5.4)
[2024-12-18 15:14] LABS: Red Blood Cells-Urine 0-5 SEEN /hpf (0-5)
[2024-12-18 15:23] VITALS: BP 116/76; PULSE 81; RESP 16; TEMP 36.8; O2SAT 100
[2024-12-18 15:37] LABS: Internal QC Validated? YES +Cl - CLEAR BKGD; Pregnancy, Serum, hCG Quali. NEGATIVE Negative; Record Kit Lot#, Serum Preg. 947241
[2024-12-18 15:40] LABS: Lactic Acid 1.3 mmol/L (0.0-2.0)
[2024-12-18 15:41] LABS: ALB/GLOB Ratio 1.7 RATIO (0.9-2.4); AST(SGOT) 18 U/L (<=31); Alanine Aminotransfer ALT/SGPT 63 U/L (<=34); Albumin, Serum 4.5 g/dL (3.5-5.0); Alkaline Phosphatase 154 U/L (35-104); Anion Gap 11 (5-15); BUN 11 mg/dL (4-19); Calcium,Total 9.7 mg/dL (7.6-11.0); Carbon Dioxide 24.7 mmol/L (21.0-32.0); Chloride 101 mmol/L (98-108); Creatinine, Serum 0.94 mg/dL (0.70-1.20); EST Glomerular Filtration Rate 84 (>60); Estimated Creatinine Clearance 75.57 ml/min (50-250); Globulin 2.6 g/dL (2.2-4.2); Glucose 111 mg/dL (70-99); Lipase 26 U/L (13-75); Potassium 3.5 mmol/L (3.3-5.1); Protein, Total 7.1 g/dL (5.9-8.4); Sodium Level 137 mmol/L (133-145); Total Bilirubin 0.24 mg/dL (0.00-1.30)
--- NOTE | 2024-12-18 16:05 | RAD_ITS ---
PROCEDURE: ABDOMEN SINGLE VIEW (PORTABLE) 12/18/2024 REASON FOR EXAM: CONSTIPATION TECHNIQUE: Single view abdomen. COMPARISON: None. FINDINGS: Bowel gas: Bowel gas pattern is remarkable for mild constipation. No evidence of bowel obstruction. Calcifications: No suspicious calcifications. Bones: The bones are unremarkable. Other: None. RAD/Abdomen Single View (Portable) IMPRESSION: Mild constipation. Reading Location: [place] [id number]
[2024-12-18 16:20] VITALS: BP 107/72; PULSE 74; RESP 16; O2SAT 100
[2024-12-18 16:50] LABS: Amorphous Sediment 3+
[2024-12-18] MEDS: proMETHazine 25 MG/ML Syringe 12.5 MG IM (17:01)
[2024-12-18 17:05] VITALS: BP 107/72; PULSE 74; RESP 16; TEMP 36.2; O2SAT 100
== END 2024-12-18 17:06 | disposition home or self-care (01) ==
PROVIDERS: Emergency Provider Emergency Medicine; PCP Nurse Practitioner Family; Visit Provider Emergency Medicine
DX: K59.00 Constipation, unspecified (principal); F17.200 Nicotine dependence, unspecified, uncomplicated
CPT/HCPCS: 74018; 80053; 81001; 83605; 83690; 84703; 85025; 96372; 96374; 96375; 99284; A4216

== ENCOUNTER 2025-05-29 08:57 | Emergency (ER) | payer MEDICAID, SELFPAY ==
[2025-05-29 08:58] VITALS: BP 128/86; PULSE 99; RESP 18; TEMP 37.6; O2SAT 99; BMI 23.8
[2025-05-29 09:01] VITALS: BP 128/86; PULSE 99; RESP 18; TEMP 37.6; O2SAT 98
--- NOTE | 2025-05-29 09:11 | EX.ED.DYSGE1 ---
HPI History of Present Illness Chief Complaint: Flank Pain Informant: patient and EMS Narrative Narrative: 30-year-old female presenting to the emergency room chief complaint of flank pain nausea abdominal pain diarrhea. Patient states she was diagnosed with a UTI yesterday started on 3 days of Macrobid. She has had 2 doses. She notes a fever yesterday. She notes nausea. She notes she has had 4 episodes of diarrhea this morning. She notes bilateral flank pain as well as abdominal pain. Patient had Motrin 600 mg around 0 600 today. She has had prior cholecystectomy and appendectomy. She states that she is currently in rehab for cocaine. She has a history of chronic pancreatitis. [facility] Medical History Vaginal delivery History of cocaine abuse 38 weeks gestation of PROM (premature rupture of membranes) Ovarian cyst Depression affecting Family history of malignant hyperthermia Hiatal hernia Tonsillectomy planned hemorrhage Depression Anxiety Pancreatitis Home Medications ?Medication ?Instructions ?Recorded ?Last Taken ?Type metoclopramide HCl 10 mg tablet 10 mg PO Q6H PRN nausea and 01/19/24 Unknown Rx (Reglan) vomiting #14 tabs cariprazine 1.5 mg capsule 3 mg PO DAILY 06/07/24 Unknown History (Vrsusylar) ondansetron 4 mg disintegrating 4 mg PO Q6H PRN nausea and 06/07/24 Unknown Rx tablet vomiting #15 tabs amoxicillin 875 mg-potassium 1 tab PO BID 10 days #20 tabs 09/06/24 Unknown Rx clavulanate 125 mg tablet hydrocodone-acetaminophen 5-325mg 1 tab PO Q6H PRN PRN Pain 3 days 09/06/24 Unknown Rx 5mg-325mg #12 TABLETS lithium carbonate 300 mg capsule 300 mg PO BID 09/06/24 Unknown History prednisone 20 mg tablet 40 mg (2 x 20 mg) PO DAILY 7 days 09/06/24 Unknown Rx #14 tabs trazodone 50 mg tablet 50 mg PO QHS 09/06/24 Unknown History hydrocodone-acetaminophen 5-325mg 1 tab PO Q4H PRN PRN Pain 2 days 09/07/24 Unknown Rx 5mg-325mg #7 TABLETS ondansetron 4 mg disintegrating 4 mg PO Q6H PRN nausea and 10/02/24 Unknown Rx tablet vomiting #7 tabs hydrocodone-acetaminophen 5-325mg 1 tab PO Q4H PRN PRN Pain 2 days 12/10/24 Unknown Rx 5mg-325mg #10 TABLETS metoclopramide HCl 10 mg tablet 10 mg PO Q6H PRN nausea and 12/10/24 Unknown Rx (Reglan) vomiting #10 tabs lansoprazole 30 mg capsule,delayed 30 mg PO DAILY #14 caps 12/18/24 Unknown Rx release (Prevacid) promethazine 25 mg tablet 25 mg PO TID PRN nausea and 12/18/24 Unknown Rx vomiting #10 tabs sulfamethoxazole 800 1 tab PO BID 20 days #40 TABLETS 05/29/25 Unknown Rx mg-trimethoprim 160 mg tablet Allergy/AdvReac Type Severity Reaction Status Date / Time oxycodone (From Percocet) Allergy Severe Angioedema Verified 05/29/25 09:01 fructose AdvReac Mild Upset Verified 05/29/25 09:01 Stomach Family History Grandmother Malignant hyperthermia Surgical History History of adenoidectomy History of appendectomy Social History household members: spouse and children housing: house Smoking Status: Current every day smoker tobacco type: cigarettes substance use type: does not use ROS ROS ED Constitutional Constitutional ED: Reports chills and fever(s); Denies weight loss Eyes Eyes: Denies change in vision or diplopia ENT ENT ED: Denies ear pain, rhinorrhea or sore throat Cardiovascular Cardiovascular: Denies chest pain, orthopnea, palpitations or racing heartbeat Respiratory/Chest Respiratory/Chest: Denies cough, dyspnea or orthopnea Gastrointestinal Gastrointestinal: Reports abdominal pain, diarrhea and nausea Genitourinary Genitourinary ED: Reports dysuria and urinary frequency; Denies hematuria Musculoskeletal Musculoskeletal: Reports back pain and myalgias; Denies arthralgias Integumentary Denies abscess or rash Neurologic Neurologic: Denies headache(s), paresthesias or weakness Psychiatric Psychiatric: Denies anxiety, depression, suicidal ideation or suicidal thoughts Endocrine Endocrinology: Denies polydipsia, polyphagia or polyuria Allergic/Immunologic Allergic/Immunologic ED: Denies mouth swelling, tongue swelling or urticaria EXAM Physical Exam Const Vital Signs: 05/29/25 08:58 05/29/25 09:01 05/29/25 10:57 Temperature 99.6 F H 99.6 F H Temperature Source Oral Oral Pulse Rate 99 99 90 Respiratory Rate 18 18 Blood Pressure 128/86 H 128/86 H 109/73 Blood Pressure Mean 100 100 85 Pulse Ox 99 98 99 Oxygen Delivery Method Room Air Room Air Room Air Positive well nourished and well developed General Appearance ED: well developed and NAD HEENT Reports normocephalic, head/scalp atraumatic and moist mucous membranes Eyes PERRL and EOMs intact bilaterally Neck no lymphadenopathy, supple and no JVD Resp normal respiratory effort and clear to auscultation bilaterally Cardio regular rate, regular rhythm and no murmurs Rate: tachycardic GI Inspection: Negative for abdominal distention Auscultation: normoactive bowel sounds Palpation: soft and tender other (Mild diffuse); Negative for guarding or rebound tenderness present Back/Spine normal ROM General Back: CVA tenderness bilateral Extremity normal to inspection General Extremety ED: Negative for edema General Extremity: Negative for edema Neuro oriented x3 and CN's II-XII intact bilaterally Sensorium / Orientation: alert Motor Exam: strength 5/5 throughout Psych mental status grossly normal Mood & Affect: Negative for depressed or tearful Skin no rashes or lesions noted and no wounds MDM MDM MDM Narrative Medical decision making narrative: Differential diagnosis includes but not limited to acute cystitis colitis kidney stone pyelonephritis renal abscess acute kidney injury dehydration sepsis Patient's white count 11.6. Lactic acid 1.3. There is an elevation of her transaminases and alk phos 107 161 and 148. Glucose is 100 normal creatinine 0.68 with a BUN of 7 anion gap is 13 serum CO2 25.9. Urinalysis 10-25 white cells 5-10 squamous cells 2+ bacteria negative nitrates negative leukocyte esterase. This was sent for culture. Patient received a dose of Toradol Zofran and IV fluids. CT of the abdomen pelvis with IV contrast was obtained and read by radiology reviewed by myself. This demonstrated some dilatation of the right collecting system. No obvious renal abscess or sequelae of pyelonephritis is noted by radiology. Clinically we will change the patient to Bactrim from Macrobid. Continued use of Tylenol or Motrin. She has Phenergan at home. Return if worsening or concerns History & Record Review Discussion w/independent historian: Patient Additional record(s) reviewed:: Prior outpatient record, Prior ED visit and Prior labs Lab Data Attestation: I reviewed the patient's lab results. Labs: Laboratory Results - last 24 hr 05/29/25 05/29/25 05/29/25 09:00 09:15 09:22 WBC 11.6 H RBC 4.98 Hgb 15.2 H Hct 45.4 MCV 91.2 MCH 30.5 MCHC 33.5 RDW Std Deviation 42.8 RDW Coeff of Elliott 12.8 Plt Count 252 MPV 10.1 Immature Gran % (Auto) 0.300 Neut % (Auto) 80.8 H Lymph % (Auto) 10.3 L [place] % (Auto) 6.9 Eos % (Auto) 1.4 Baso % (Auto) 0.3 Absolute Neuts (auto) 9.4 H Absolute Lymphs (auto) 1.20 Nucleated RBC % 0 Sodium 136 Potassium 4.0 Chloride 97 L Carbon Dioxide 25.9 Anion Gap 13 BUN 7 Creatinine 0.68 L Estim Creat Clear Calc 103.51 Est GFR (MDRD) Non-Af 119 BUN/Creatinine Ratio 10.5 Glucose 100 H Lactic Acid 1.3 Calcium 9.9 Total Bilirubin 0.35 AST 107 H ALT 161 H Alkaline Phosphatase 148 H Total Protein 8.1 Albumin 4.9 Globulin 3.2 Albumin/Globulin Ratio 1.5 Serum , Qual NEGATIVE Urine Color Yellow Urine Clarity Clear Urine pH 8.0 Ur Specific [place] 1.015 Urine Protein 15 H Urine Glucose (UA) Normal Urine Ketones Negative Urine Occult Blood 250 H Urine Nitrite Negative Urine Bilirubin Negative Urine Urobilinogen Normal Ur Leukocyte Esterase Negative Urine RBC 0-5 SEEN Urine WBC 10-25 SEEN Ur Squamous Epith Cells 5-10 SEEN Urine Bacteria 2+ Urine Mucus 0 SEEN Radiography Diagnostic Testing: Clinical Impression(s) from Imaging Studies Abdomen/Pelvis CT 05/29/25 10:05 IMPRESSION: Distended bladder with mild right hydroureteronephrosis. No uropathy. A recently passed stone or urinary tract infection can not be excluded. However, no evidence of kidney abscess or CT evidence of pyelonephritis. Reading Location: [facility] Discharge Plan Triage Chief Complaint: Flank Pain ED Provider: Charles Peralta Dx/Rx/DC Orders Clinical Impression: Pyelonephritis Instructions: ED Pyelonephritis, Female (Adult) Prescriptions: New sulfamethoxazole-trimethoprim 800-160 mg tablet 1 tab PO BID 20 Days Qty: 40 0RF No Action metoclopramide HCl [Reglan] 10 mg tablet 10 mg PO Q6H PRN (Reason: nausea and vomiting) Qty: 14 0RF Vraylar 1.5 mg capsule 3 mg PO DAILY ondansetron 4 mg tablet,disintegrating 4 mg PO Q6H PRN (Reason: nausea and vomiting) Qty: 15 0RF lithium carbonate 300 mg capsule 300 mg PO BID trazodone 50 mg tablet 50 mg PO QHS amoxicillin-pot clavulanate 875-125 mg tablet 1 tab PO BID 10 Days Qty: 20 0RF prednisone 20 mg tablet 40 mg PO DAILY 7 Days Qty: 14 0RF hydrocodone-acetaminophen 5-325 mg tablet 1 tab PO Q6H PRN PRN (Reason: Pain) 3 Days Qty: 12 0RF metoclopramide HCl [Reglan] 10 mg tablet 10 mg PO Q6H PRN (Reason: nausea and vomiting) Qty: 10 0RF hydrocodone-acetaminophen 5-325 mg tablet 1 tab PO Q4H PRN PRN (Reason: Pain) 2 Days Qty: 10 0RF promethazine 25 mg tablet 25 mg PO TID PRN (Reason: nausea and vomiting) Qty: 10 0RF lansoprazole [Prevacid] 30 mg capsule,delayed release(DR/EC) 30 mg PO DAILY Qty: 14 0RF hydrocodone-acetaminophen 5-325 mg tablet 1 tab PO Q4H PRN PRN (Reason: Pain) 2 Days Qty: 7 0RF ondansetron 4 mg tablet,disintegrating 4 mg PO Q6H PRN (Reason: nausea and vomiting) Qty: 7 0RF Primary Care Provider: Susanna Torres Referrals: Susanna Torres, INVENTORY TAKER-C [Primary Care Provider, Medical] - 3-5 Days if not improving Print Language: Amharic Disposition Disposition: Home, Self Care
[2025-05-29] MEDS: 0.9% Normal Saline (1000mL) 1,000 ML 1000 ML IV (09:16)
[2025-05-29] MEDS: Ketorolac 30 MG/ML Syringe IV (09:17)
[2025-05-29 09:29] LABS: Hematocrit 45.4 % (37-47); Hemoglobin 15.2 g/dL (12.0-15.0); Immature Granulocytes Count 0.040 X10^3/uL (0.0-0.0); Mean Corp Hgb Conc 33.5 g/dL (32-36); Mean Corpuscular Volume 91.2 fL (81-99); Mean Platelet Vol. 10.1 fl (6.2-12.0); NRBC Flagged by Analyzer 0 % (0-5); Platelet Count 252 K/mm3 (150-450); RBC Distribution Width CV 12.8 % (11.6-14.6); RBC Distribution Width SD 42.8 fl (35.1-43.9); Red Blood Count 4.98 M/mm3 (4.2-5.4); White Blood Count 11.6 K/mm3 (4.4-11.0)
[2025-05-29 09:31] LABS: Mucous, Urine 0 SEEN /hpf (<or=2+)
[2025-05-29 09:52] LABS: AST(SGOT) 107 U/L (<=31); Alanine Aminotransfer ALT/SGPT 161 U/L (<=34); Albumin, Serum 4.9 g/dL (3.5-5.0); Alkaline Phosphatase 148 U/L (35-104); Anion Gap 13 (5-15); BUN 7 mg/dL (4-19); BUN/Creat Ratio 10.5 RATIO (10-20); Calcium,Total 9.9 mg/dL (7.6-11.0); Carbon Dioxide 25.9 mmol/L (21.0-32.0); Chloride 97 mmol/L (98-108); Estimated Creatinine Clearance 103.51 ml/min (50-250); Globulin 3.2 g/dL (2.2-4.2); Glucose 100 mg/dL (70-99); Internal QC Validated? YES +Cl - CLEAR BKGD; Potassium 4.0 mmol/L (3.3-5.1); Pregnancy, Serum, hCG Quali. NEGATIVE Negative; Record Kit Lot#, Serum Preg. 980607
[2025-05-29 09:57] LABS: Color, Urine Yellow (Yellow); Glucose, Dipstick Normal (Normal); Ketone-Dipstick Negative (Negative); Leukocyte Esterase-Dipstick Negative /ul (Negative); Nitrite-Dipstick Negative (Negative); Occult Blood-Urine 250 /ul (Negative); Protein-Dipstick 15 mg/dl (Negative); Specific Gravity, Urine 1.015 (1.002-1.030); Urine Bilirubin Dipstick Negative (Negative)
--- NOTE | 2025-05-29 10:05 | CT_ITS ---
PROCEDURE: CT/Abdomen/Pelvis W IV Cont ONLY
[2025-05-29 10:17] LABS: Red Blood Cells-Urine 0-5 SEEN /hpf (0-5); Squamous Epithelial Cells - UA 5-10 SEEN /hpf (5-10)
[2025-05-29 10:57] VITALS: BP 109/73; PULSE 90; O2SAT 99
[2025-05-29 11:57] VITALS: BP 109/73; PULSE 83; RESP 16
[2025-05-29 12:01] VITALS: BP 109/73; PULSE 83; RESP 16; TEMP 37.6; O2SAT 99
== END 2025-05-29 12:01 | disposition home or self-care (01) ==
PROVIDERS: Emergency Provider Emergency Medicine; PCP Nurse Practitioner Family; Visit Provider Emergency Medicine
DX: N12 Tubulo-interstitial nephritis, not specified as acute or chronic (principal); F17.210 Nicotine dependence, cigarettes, uncomplicated
CPT/HCPCS: 74177; 80053; 81001; 83605; 84703; 85025; 87086; 87088; 96361; 96374; 96375; 99285; Q9967; J2405

== ENCOUNTER 2025-06-14 09:18 | Emergency (ER) | payer MEDICAID, SELFPAY ==
[2025-06-14 09:18] VITALS: BP 111/81; PULSE 87; RESP 18; TEMP 36.9; O2SAT 100; BMI 24.5
--- NOTE | 2025-06-14 09:22 | EX.ED.VIS.HA ---
HPI History of Present Illness Chief Complaint: Headache Informant: patient Onset/Context/Timing Onset: Weeks (1-1/2 weeks) Context: Gradual Timing: Continuous Quality -Headache: Positive for Similar Prior Headaches and Other (Stabbing) Location: Top of head Worsened by: Nothing Relieved by: Laying down Associated Symptoms/Injury Associated Symptoms: Positive for Nausea, Vomiting, Numbness, Tingling, Blurred Vision and Photophobia (Mild); Negative for Fever, Sore Throat, Sinus Pressure, Preceding Aura or Visual Loss Injury - WISE: Negative for Direct Trauma Narrative Narrative: Patient presents with migraine headache that has been constant for the past week and a half. Patient states it came on gradually. Patient states it is mainly over the top of her head. Patient describes it as stabbing. Patient states it is better when she is able to lay down and go to sleep. Patient states nothing makes it worse. Patient admits to some nausea and vomiting. Patient admits to some numbness and tingling in her arms. Patient also admits to some blurred vision. Patient admits to some mild photophobia. Patient denies any scotoma or loss of vision. Patient denies any trauma or injury. Patient states she called her primary care physician to get a referral to her neurologist. Patient states she was then told to come to the emergency department. Prior similar symptoms: Yes PFSH PFSH Medical History Vaginal delivery History of cocaine abuse 38 weeks gestation of PROM (premature rupture of membranes) Ovarian cyst Depression affecting Family history of malignant hyperthermia Hiatal hernia Tonsillectomy planned hemorrhage Depression Anxiety Pancreatitis Home Medications ?Medication ?Instructions ?Recorded ?Last Taken ?Type lithium carbonate 300 mg capsule 300 mg PO BID 09/06/24 Unknown History trazodone 50 mg tablet 50 mg PO QHS 09/06/24 Unknown History lansoprazole 30 mg capsule,delayed 30 mg PO DAILY #14 caps 12/18/24 Unknown Rx release (Prevacid) Allergy/AdvReac Type Severity Reaction Status Date / Time oxycodone (From Percocet) Allergy Severe Angioedema Verified 06/14/25 09:20 fructose AdvReac Mild Upset Verified 06/14/25 09:20 Stomach Family History Grandmother Malignant hyperthermia Surgical History History of adenoidectomy History of appendectomy Social History household members: spouse and children housing: house Smoking Status: Current every day smoker tobacco type: cigarettes substance use type: does not use ROS ROS ED Constitutional Constitutional ED: Denies chills or fever(s) Eyes Eyes: Denies blurry vision or change in vision ENT ENT ED: Denies rhinorrhea or sore throat Cardiovascular Cardiovascular: Denies chest pain or palpitations Respiratory/Chest Respiratory/Chest: Reports cough; Denies dyspnea Gastrointestinal Gastrointestinal: Reports nausea and vomiting Genitourinary Genitourinary ED: Denies dysuria or hematuria Musculoskeletal Musculoskeletal: Denies back pain or neck pain Integumentary Denies abscess or rash Neurologic Neurologic: Reports headache(s); Denies weakness Allergic/Immunologic Allergic/Immunologic ED: Denies mouth swelling or urticaria EXAM Physical Exam Const Vital Signs: 06/14/25 09:18 Temperature 98.4 F Temperature Source Oral Pulse Rate 87 Respiratory Rate 18 Blood Pressure 111/81 H Blood Pressure Mean 91 Pulse Ox 100 Oxygen Delivery Method Room Air Positive well nourished and well developed General Appearance ED: well developed and NAD HEENT Reports normocephalic and moist mucous membranes atraumatic Neck supple, no meningeal signs and no JVD Resp normal respiratory effort and clear to auscultation bilaterally Cardio regular rate and regular rhythm GI non-tender and non-distended Palpation: soft Extremity normal to inspection and full ROM General Extremety ED: Negative for edema or tenderness General Extremity: Negative for edema Neuro oriented x3, CN's II-XII intact bilaterally and no sensory deficits noted Gerlaw Coma Scale: document GCS findings Spontaneous Obeys Commands Oriented 15 Sensorium / Orientation: awake and alert Speech: speech normal Motor Exam: strength 5/5 throughout Psych mental status grossly normal MDM MDM MDM Narrative Medical decision making narrative: Differential diagnose includes migraine headache, tension headache, dehydration, electrolyte abnormality, and anxiety. Treatment and Re-Evaluation Narrative: Patient was given IV fluids, Reglan, Benadryl, and Toradol. Patient was feeling better on reevaluation. Patient was advised of her findings. Patient was instructed to rest in a dark quiet room. Patient was instructed to follow-up with her primary care physician 5 to 7 days. Patient was instructed to return if worse in any way. Patient understood and was agreeable with the plan. All questions were answered. Discharge Plan Triage Chief Complaint: Headache ED Provider: Kana Phan Dx/Rx/DC Orders Clinical Impression: Migraine headache, Tobacco use Instructions: ED, Migraine (Classical) Prescriptions: No Action lithium carbonate 300 mg capsule 300 mg PO BID trazodone 50 mg tablet 50 mg PO QHS lansoprazole [Prevacid] 30 mg capsule,delayed release(DR/EC) 30 mg PO DAILY Qty: 14 0RF Primary Care Provider: Susanna Torres Referrals: Susanna Torres, [employer] [facility] [Primary Care Provider, Medical] - 5-7 Days Print Language: Sinhala Disposition Disposition: Home, Self Care
[2025-06-14] MEDS: 0.9% Normal Saline (1000mL) 1,000 ML 999 ML IV (09:47)
[2025-06-14] MEDS: Ketorolac 30 MG/ML Syringe IV (09:47)
[2025-06-14] MEDS: DiphenhydrAMINE 50 MG/ML Syringe 25 MG IV (09:48)
[2025-06-14 11:18] VITALS: BP 106/67; PULSE 66; RESP 18; TEMP 36.8; O2SAT 99
== END 2025-06-14 11:34 | disposition home or self-care (01) ==
PROVIDERS: Emergency Provider Emergency Medicine; PCP Nurse Practitioner Family; Visit Provider Emergency Medicine
DX: G43.909 Migraine, unspecified, not intractable, without status migrainosus (principal); F17.210 Nicotine dependence, cigarettes, uncomplicated
CPT/HCPCS: 96361; 96374; 96375; 99283